=== PATIENT | male | born 1955 | race Caucasian/White ===

== ENCOUNTER 2023-01-28 18:51 | Inpatient (IN) | payer MEDICARE, MEDICAID, SELFPAY ==
--- NOTE | ~2023-01-28 | XR_ITS ---
EXAMINATION: XR CHEST CLINICAL INFORMATION: Shortness of breath COMPARISON: None available. TECHNIQUE: Frontal view of the chest was obtained. FINDINGS: Right lower lobe opacities consistent with infiltrate. Possible second focus in left midlung. No effusion. The cardiac silhouette is within normal limits. The hilar regions are mildly prominent. May be reactive. XR/XR chest 1V IMPRESSION: Right lower lobe infiltrate and possible second focus infrahilar left lower lobe. Prominent hilar structures may be reactive. Follow-up would be recommended
--- NOTE | 2023-01-28 19:21 | ED.SOB ---
HPI - SOB/Dyspnea General Stated Complaint: dyspnea Related Data Allergies Allergy/AdvReac Type Severity Reaction Status Date / Time No Known Allergies Allergy Verified 01/28/23 19:26 Course Course Course Narrative: This is an RME: Additional HPI, ROS, PE not included below will be deferred to primary provider. Patient is a 59-year-old male presents emergency department for evaluation of left lower extremity pain. Patient reports an injury to the left lower extremity 1 week ago, sustained a fall, striking left lateral leg, pain is increasingly worsening without any improvement. He is currently prescribed oxycodone for chronic back pain, which has on relieved the pain to the leg. He reports no swelling, erythema, warmth, wounds. Denies chest pain, shortness of breath, difficulty breathing. Denies history of DVT/PE, denies use of anticoagulants. Plan: XR tib fib
[2023-01-28 19:24] VITALS: BP 108/78; BP 161/92; PULSE 104; PULSE 112; RESP 22; TEMP 38.4; O2SAT 97; BMI 17.2
[2023-01-28 19:56] LABS: MANUAL DIFF FLAG NO
[2023-01-28 20:00] LABS: Basophils Percent Auto 0.3 % (0-2); Hematocrit 38.1 % (42.0-52.0); Hemoglobin 12.4 g/dl (14.0-18.0); Imm Gran Abs Auto 0.06 X10*3/uL (0.00-0.03); Imm Gran Pct Auto 0.4 % (0.0-0.4); Lymphocytes Absolute Auto 0.7 X10*3/uL (1.2-4.9); Lymphocytes Percent Auto 4.4 % (20-40); Mean Corpuscular HGB Conc 32.5 g/dl (31.0-36.0); Mean Corpuscular Hemoglobin 29.3 pg (27.0-33.0); Mean Corpuscular Volume 90.1 fL (80.0-98.0); Mean Platelet Volume 9.9 fL (9.4-12.4); Monocytes Absolute Auto 1.5 X10*3/uL (0.1-1.2); Monocytes Percent Auto 9.8 % (2-11); Neutrophils Absolute Auto 12.7 x10*3/uL (2.0-8.3); Neutrophils Percent Auto 85.1 % (45-73); Platelet Count 292 X10*3/uL (160-400); Red Blood Count 4.23 X10*6/uL (4.60-5.80); Red Cell Distribution Width 13.6 % (11.0-16.0)
[2023-01-28 20:07] VITALS: PULSE 112; RESP 20; O2SAT 93
[2023-01-28] MEDS: Acetaminophen 325 MG TABLET 650 MG PO (20:09)
[2023-01-28 20:21] LABS: Alanine Aminotransferase 16 U/L (0-40); Albumin Level 3.7 g/dL (3.5-5.0); Alkaline Phosphatase 112 U/L (39-117); Anion Gap 12 (12-20); Aspartate Amino Transferase 15 U/L (5-37); Bilirubin Total 0.6 mg/dL (0.0-1.0); Blood Urea Nitrogen 11 mg/dL (9-16); Calcium 9.5 mg/dL (8.4-10.2); Carbon Dioxide 31 mmol/L (22-29); Chloride 95 mmol/L (96-108); Creatinine Clr Calc Pharmacy 75.5; Estimated Glomerular Filt Rate > 60; Glucose Random 118 mg/dL (60-115); INTERNATIONAL NORM RATIO 1.3 (0.9-1.1); Potassium 4.3 mmol/L (3.3-5.1); Prothrombin Time 14.5 SEC (10.0-13.1); Sodium 134 mmol/L (135-145); Total Protein 7.1 g/dL (6.5-8.0)
[2023-01-28 20:28] LABS: Troponin-I High Sensitivity 3.7 ng/L (<3.5-35.0)
--- NOTE | 2023-01-28 20:28 | ED_ITS ---
HPI - SOB/Dyspnea General Chief Complaint: Dyspnea Stated Complaint: dyspnea Time Seen by Provider: 01/28/23 19:44 Source: patient and EMS Mode of arrival: EMS Limitations: no limitations History of Present Illness HPI Narrative: Patient is 67 years old with history of COPD hypertension lives in [facility] for last 3 months comes as for last 2 days patient is feeling more short of breath coughing more and even walking few yard feel short of breath . today he had more shortness of breath and was tired and weak nurse saw him and checked her vitals and transferred him to the hospital for increased shortness of breath patient was tachycardic febrile to touch saturating 91-92% at room air blood pressure was 161/80s. On arrival patient noticed to be febrile temperature of 101.2 degrees tachycardia with heart rate of 104 respiratory rate 22 Related Data Home Medications Medication Instructions Recorded Confirmed albuterol sulfate 90 mcg/actuation 1 - 2 puff inhalation Q4H PRN 01/28/23 01/28/23 aerosol inhaler Wheezing fluticasone furoate 100 1 ea inhalation DAILY 01/28/23 01/28/23 mcg-vilanterol 25 mcg/dose inhalation powder (Breo Ellipta) lisinopril 2.5 mg tablet 5 mg PO DAILY 01/28/23 01/28/23 Allergies Allergy/AdvReac Type Severity Reaction Status Date / Time No Known Allergies Allergy Verified 01/28/23 19:26 [facility] Social History Social History Alcohol intake: former Patient Tobacco Use Status: Current everyday Tobacco user Smoked in Last 30 Days: Yes Use of substances other than those prescribed or required for medical reasons: No Advance Directives: No Advance Directives Information Provided: No Nutrition Risks: No Nutritional Risk Physical Exam Vital Signs: Vital Signs: Last Vital Signs Temp 98.6 F 01/28/23 21:47 Pulse 108 H 01/28/23 21:47 Resp 18 01/28/23 21:47 BP 101/74 01/28/23 21:47 Pulse Ox 96 01/28/23 21:47 O2 Del Method Nasal Cannula 01/28/23 21:47 O2 Flow Rate 2 01/28/23 21:47 Oxygen Flow Rate 2 01/28/23 19:24 BMI result Body Mass Index 17.2 Appearance: Alert. Oriented X3. Mild respiratory distress thin emaciated. Eyes: No pallor or icterus ENT: Pharynx normal. Oral Mucosa moist Neck: Normal inspection. Neck supple. CVS: Normal heart rate and rhythm. Pulses normal. Respiratory: No respiratory distress. Equal air entry bilateral, decreased air entry bilaterally with prolonged expiration occasional crackles Abdomen: Soft and nontender. Bowel sounds are present, no mass palpable, no CVA tenderness Skin: Skin warm and dry. Normal skin color. Normal skin turgor. Extremities: No lower extremity edema. No calf tenderness Neuro: Oriented X 3. No motor deficit. Medications Administered Generic Name Dose Route Start Last Admin Trade Name Freq PRN Reason Stop Dose Admin Enoxaparin Sodium 40 mg 01/28/23 21:00 01/28/23 20:46 Enoxaparin Sodium 40 Mg/0.4 Ml Syringe SUBCUT 40 mg Q24H ALONSO Administration Ceftriaxone Sodium 1 gm/ 50 mls @ 100 mls/hr 01/28/23 20:30 01/28/23 20:45 Sodium Chloride IV 100 mls/hr Q24H ALONSO Administration Azithromycin 500 mg/ Sodium 250 mls @ 125 mls/hr 01/28/23 21:00 01/28/23 21:38 Chloride IV 125 mls/hr Q24H ALONSO Administration Discontinued Medications Generic Name Dose Route Start Last Admin Trade Name Freq PRN Reason Stop Dose Admin Acetaminophen 650 mg 01/28/23 19:52 01/28/23 20:09 Acetaminophen 325 Mg Tablet PO 01/28/23 19:53 650 mg ONCE ONE Administration Albuterol Sulfate 2.5 mg/ 0 mg 01/28/23 19:52 01/28/23 20:05 Albuterol/Ipratropium 3 ml INHALE 01/28/23 19:53 2.5 each ONCE ONE Administration Sodium Chloride 1,000 mls @ 999 mls/hr 01/28/23 20:21 01/28/23 20:44 Ns IV 01/28/23 21:21 999 mls/hr .Q1H1M ONE Administration Medical Decision Making Medical Decision Making [facility] Narrative: Patient's COPD with increased shortness of breath noticed to have infiltrate in the right lower lung along with had a fever and leukocytosis meeting criteria for sepsis but not septic shock patient vitals improved after IV hydration and antibiotics Rocephin was given Lab Data [facility] Lab Attestation statement: I reviewed the patient's lab results. 01/28/23 19:49 01/28/23 19:49 Labs: Lab Results 01/28/23 01/28/23 01/28/23 Range/Units 19:49 19:49 19:49 WBC 15.0 H (4.8-10.8) X10*3/uL RBC 4.23 L (4.60-5.80) X10*6/uL Hgb 12.4 L (14.0-18.0) g/dl Hct 38.1 L (42.0-52.0) % MCV 90.1 (80.0-98.0) fL MCH 29.3 (27.0-33.0) pg MCHC 32.5 (31.0-36.0) g/dl RDW 13.6 (11.0-16.0) % Plt Count 292 (160-400) X10*3/uL MPV 9.9 (9.4-12.4) fL Immature Gran % (Auto) 0.4 (0.0-0.4) % Neut % (Auto) 85.1 H (45-73) % Lymph % (Auto) 4.4 L (20-40) % [place] % (Auto) 9.8 (2-11) % Eos % (Auto) 0.0 (0-4) % Baso % (Auto) 0.3 (0-2) % Lymph # (Auto) 0.7 L (1.2-4.9) X10*3/uL [place] # (Auto) 1.5 H (0.1-1.2) X10*3/uL Eos # (Auto) 0.0 (0.0-0.4) X10*3/uL Baso # (Auto) 0.0 (0.0-0.2) X10*3/uL Abs Immat Gran (auto) 0.06 H (0.00-0.03) X10*3/uL Absolute Neuts (auto) 12.7 H (2.0-8.3) x10*3/uL Absolute Nucleated RBC 0.000 (0.0-0.012) X10*3/uL Nucleated RBC % (auto) 0.0 (0.0-0.2) /100WBC PT (10.0-13.1) SEC INR (0.9-1.1) Sodium 134 L (135-145) mmol/L Potassium 4.3 (3.3-5.1) mmol/L Chloride 95 L (96-108) mmol/L Carbon Dioxide 31 H (22-29) mmol/L Anion Gap 12 (12-20) BUN 11 (9-16) mg/dL Creatinine 0.72 (0.5-1.4) mg/dL Estim Creat Clear Calc 75.5 Estimated GFR > 60 Random Glucose 118 H (60-115) mg/dL Lactic Acid 1.0 (0.5-2.0) mmol/L Calcium 9.5 (8.4-10.2) mg/dL Total Bilirubin 0.6 (0.0-1.0) mg/dL AST 15 (5-37) U/L ALT 16 (0-40) U/L Alkaline Phosphatase 112 (39-117) U/L Troponin I High Sens (<3.5-35.0) ng/L Total Protein 7.1 (6.5-8.0) g/dL Albumin 3.7 (3.5-5.0) g/dL 01/28/23 01/28/23 Range/Units 19:49 19:49 WBC (4.8-10.8) X10*3/uL RBC (4.60-5.80) X10*6/uL Hgb (14.0-18.0) g/dl Hct (42.0-52.0) % MCV (80.0-98.0) fL MCH (27.0-33.0) pg MCHC (31.0-36.0) g/dl RDW (11.0-16.0) % Plt Count (160-400) X10*3/uL MPV (9.4-12.4) fL Immature Gran % (Auto) (0.0-0.4) % Neut % (Auto) (45-73) % Lymph % (Auto) (20-40) % [place] % (Auto) (2-11) % Eos % (Auto) (0-4) % Baso % (Auto) (0-2) % Lymph # (Auto) (1.2-4.9) X10*3/uL [place] # (Auto) (0.1-1.2) X10*3/uL Eos # (Auto) (0.0-0.4) X10*3/uL Baso # (Auto) (0.0-0.2) X10*3/uL Abs Immat Gran (auto) (0.00-0.03) X10*3/uL Absolute Neuts (auto) (2.0-8.3) x10*3/uL Absolute Nucleated RBC (0.0-0.012) X10*3/uL Nucleated RBC % (auto) (0.0-0.2) /100WBC PT 14.5 H (10.0-13.1) SEC INR 1.3 H (0.9-1.1) Sodium (135-145) mmol/L Potassium (3.3-5.1) mmol/L Chloride (96-108) mmol/L Carbon Dioxide (22-29) mmol/L Anion Gap (12-20) BUN (9-16) mg/dL Creatinine (0.5-1.4) mg/dL Estim Creat Clear Calc Estimated GFR Random Glucose (60-115) mg/dL Lactic Acid (0.5-2.0) mmol/L Calcium (8.4-10.2) mg/dL Total Bilirubin (0.0-1.0) mg/dL AST (5-37) U/L ALT (0-40) U/L Alkaline Phosphatase (39-117) U/L Troponin I High Sens 3.7 (<3.5-35.0) ng/L Total Protein (6.5-8.0) g/dL Albumin (3.5-5.0) g/dL Discharge Plan Discharge Clinical Impression: COPD (chronic obstructive pulmonary disease), Community acquired pneumonia Patient Disposition: Admitted As Inpatient
[2023-01-28] MEDS: 0.9 % Sodium Chloride 1,000 ML 999 ML IV (20:44)
[2023-01-28] MEDS: cefTRIAXone sodium 1 GM in 0.9 % Sodium Chloride 50 ML IV (20:45)
[2023-01-28] MEDS: Enoxaparin Sodium 40 MG/0.4 ML SYRINGE SUBCUT (20:46)
--- NOTE | 2023-01-28 20:49 | P.HPHOSP_ITS ---
History of Present Illness Date of Service: 01/28/23 Attending physician on admission: Rene Brady Chief Complaint: SOB, fever Pt is a 67-year-old male with a PMH significant for?COPD and HTN who presents to the ED with?SOB, cough, and tachycardia. Pt has been a resident of [facility] for the past three months. Since the residents' rooms do not have AC, pt was standing in the hallway in front of a fan when the staff nurse told him he looked like he was ill. She took his vitals and noted him to be hypoxic, tachycardic, and hypertensive. She then called EMS to bring him to the hospital for further evaluation. Pt states because of his COPD he has good and bad breathing days, and Sunday through Sunday were exceptional breathing days. Today, however, pt had increased SOB with minimal exertion and cough productive of mostly clear sputum. [place] tired, weak, fatigued. Pt is a current smoker of half a pack, but is not on home O2. Pt theresa fever, chills, nausea, vomiting, diarrhea, abdominal pain. No chest pain/pressure, palpitations. Denies wheezing. No peripheral edema. According to EMS report, they witnessed patient taking 10 steps and becoming short of breath. Patient was satting at 92-91% on RA. In the ED patient had a fever of 101.2, tachycardia up to 112, tachypnea up to 22, and satting 97% O2 on 2 L NC. Labs were significant for leukocytosis of 15.0, H&H of 12.4/38.1. Lactic acid WNL at 1.0. Electrolytes unremarkable. Renal function WNL. CXR showed right lower lobe infiltrate and possible 2nd focus of infrahilar left lower lobe, with prominent hilar structures may be reactive. Follow-up suggested. Pt was treated with DuoNebs, acetaminophen, IVF, and ceftriaxone. Pt will be admitted to the hospital for treatment further evaluation of sepsis in the setting of community-acquired pneumonia. Review of Systems Review of Systems: Increased SOB Productive cough Fatigue Tachycardia Hypertension Patient denies fever, chills, nausea, vomiting, abdominal pain, diarrhea No chest pain/pressure, palpitations Denies lower leg edema Yes all other systems are reviewed and are negative Meds Allergies Allergy/AdvReac Type Severity Reaction Status Date / Time No Known Allergies Allergy Verified 01/28/23 19:26 Active Medications: Current Medications Acetaminophen (Acetaminophen 325 Mg Tablet) 650 mg PO Q6H PRN PRN Reason: Pain, Mild (Pain Scale 1-3) Acetaminophen (Acetaminophen Supp 650 Mg Supp.Rect) 650 mg CA Q6H PRN PRN Reason: Pain, Mild (Pain Scale 1-3) Albuterol/Ipratropium (Albuterol/Iprat 2.5/0.5mg 3 Ml Ampul.Neb) 3 ml INHALE Q4H PRN PRN Reason: Wheezing Enoxaparin Sodium (Enoxaparin Sodium 40 Mg/0.4 Ml Syringe) 40 mg SUBCUT Q24H [facility] Last Admin: 01/28/23 20:46 Dose: 40 mg Ceftriaxone Sodium 1 gm/ (Sodium Chloride) 50 mls @ 100 mls/hr IV Q24H [facility] Last Admin: 01/28/23 20:45 Dose: 100 mls/hr Azithromycin 500 mg/ Sodium (Chloride) 250 mls @ 125 mls/hr IV Q24H [facility] Sodium Chloride (Ns) 1,000 mls @ 999 mls/hr IV .Q1H1M ONE Stop: 01/28/23 21:21 Last Admin: 01/28/23 20:44 Dose: 999 mls/hr Melatonin (Melatonin 3 Mg Tablet) 6 mg PO BEDTIME PRN PRN Reason: Insomnia Ondansetron HCl (Ondansetron Hcl 4 Mg/2 Ml Vial) 4 mg IVPUSH Q8H PRN PRN Reason: Nausea and Vomiting Pharmacy Consult (Consult Rx Perform Med Rec) 1 each MISCELLANE ONCE PRN PRN Reason: Consult order Sodium Chloride (0.9 % Sodium Chloride Flush 3 Ml Syringe) 3 ml IVFLUSH QSHIFT [facility] Home Medications Medication Instructions Recorded Confirmed Last Taken Type albuterol sulfate 90 mcg/actuation 1 - 2 puff inhalation Q4H PRN 01/28/23 Unknown History aerosol inhaler Wheezing fluticasone furoate 100 1 ea inhalation DAILY 01/28/23 01/28/23 Unknown History mcg-vilanterol 25 mcg/dose inhalation powder (Breo Ellipta) lisinopril 2.5 mg tablet 5 mg PO DAILY 01/28/23 01/28/23 Unknown History Physical Exam Vital Signs and Narrative: Vital Signs: Last Vital Signs Temp 101.2 F H 01/28/23 19:24 Pulse 112 H 01/28/23 20:07 Resp 20 01/28/23 20:07 BP 108/78 01/28/23 19:24 Pulse Ox 97 01/28/23 19:24 O2 Del Method Nasal Cannula 01/28/23 19:24 Oxygen Flow Rate 2 01/28/23 19:24 BMI result Body Mass Index 17.2 Constitutional: Alert, very thin, in no acute distress. Mental Status: Oriented to person, place and time. Eyes: Pupils are equal, round, and reactive to light. Ear, Nose, and Throat: Oropharynx clear, mucous membranes moist. Ears and nose without deformities. Trachea midline. Respiratory: Clear to auscultation bilaterally. No wheezing, rales, or rhonchi. Diminished breath sounds throughout. Cardiovascular: S1, S2, tachycardic. No murmurs, rubs, or gallops. Gastrointestinal: Abdomen soft, non-tender, non-distended. Normal bowel sounds. Neurologic: Cranial nerves II-XII are grossly intact bilaterally. No focal neurological deficits. Moves all extremities spontaneously. Skin: No rashes or lesions noted. Musculoskeletal: No cyanosis or clubbing. Extremities: No edema. Psychiatric: Normal mood and affect. Results Labs 01/28/23 19:49 01/28/23 19:49 Labs: Laboratory Results - last 24 hr 01/28/23 01/28/23 01/28/23 19:49 19:49 19:49 MCV 90.1 MCH 29.3 MCHC 32.5 RDW 13.6 Plt Count 292 MPV 9.9 Immature Gran % (Auto) 0.4 Neut % (Auto) 85.1 H Lymph % (Auto) 4.4 L [place] % (Auto) 9.8 Eos % (Auto) 0.0 Baso % (Auto) 0.3 Lymph # (Auto) 0.7 L [place] # (Auto) 1.5 H Eos # (Auto) 0.0 Baso # (Auto) 0.0 Abs Immat Gran (auto) 0.06 H Absolute Neuts (auto) 12.7 H Absolute Nucleated RBC 0.000 Nucleated RBC % (auto) 0.0 PT INR Anion Gap 12 Estim Creat Clear Calc 75.5 Estimated GFR > 60 Random Glucose 118 H Lactic Acid 1.0 Calcium 9.5 Total Bilirubin 0.6 AST 15 ALT 16 Alkaline Phosphatase 112 Troponin I High Sens Total Protein 7.1 Albumin 3.7 01/28/23 01/28/23 19:49 19:49 MCV MCH MCHC RDW Plt Count MPV Immature Gran % (Auto) Neut % (Auto) Lymph % (Auto) [place] % (Auto) Eos % (Auto) Baso % (Auto) Lymph # (Auto) [place] # (Auto) Eos # (Auto) Baso # (Auto) Abs Immat Gran (auto) Absolute Neuts (auto) Absolute Nucleated RBC Nucleated RBC % (auto) PT 14.5 H INR 1.3 H Anion Gap Estim Creat Clear Calc Estimated GFR Random Glucose Lactic Acid Calcium Total Bilirubin AST ALT Alkaline Phosphatase Troponin I High Sens 3.7 Total Protein Albumin Imaging Radiologist's Impressions: Impressions Chest X-Ray 01/28/23 20:04 IMPRESSION: Right lower lobe infiltrate and possible second focus infrahilar left lower lobe. Prominent hilar structures may be reactive. Follow-up would be recommended Assessment and Plan (1) COPD (chronic obstructive pulmonary disease): Status: Acute (2) HTN (hypertension): Status: Acute (3) Community acquired pneumonia: Status: Acute (4) Sepsis: Status: Acute Plan Pt is a 67-year-old male with a PMH significant for?COPD and HTN who presents to the ED with?SOB, cough, and tachycardia. Pt has been a resident of [facility] for the past three months. Since the residents' rooms do not have AC, pt was standing in the hallway in front of a fan when the staff nurse told him he looked like he was ill. She took his vitals and noted him to be hypoxic, tachycardic, and hypertensive. Pt will be admitted to the hospital for treatment further evaluation of sepsis in the setting of community-acquired pneumonia. Sepsis in the setting of community-acquired pneumonia Patient with increased fatigue, SOB, productive cough, CXR positive for right lower lobe infiltrate with possible 2nd focus in infrahilar left lower lobe Patient meets sepsis criteria: WBC, tachycardia, tachypnea, febrile Lactic acid WNL at 1.0 Patient received IVF in the ED Patient will be started on IV antibiotics: Ceftriaxone and azithromycin, start ed 01/28/2023 Titrate supplemental O2 >92, wean as tolerated. Pt not on home O2 Patient currently not wheezy or rhonchorous, continue home inhalers Follow blood cultures Follow CBC COPD Does not appear to be in acute exacerbation Continue home inhalers HTN Continue home meds Full Code Attending:? DVT Prophylaxis: Lovenox Pt will require a hospitalization of at least two nights for treatment of?sepsis in the setting of community-acquired pneumonia with IV antibiotics. Time Spent With Patient Time: Total time managing care of this patient today ____ minutes. Quality Stroke Does the patient have a stroke diagnosis?: No VTE Prior VTE?: No VTE Risk Level:: Medical - moderate - high VTE Device Contraindication: Treatment Not Indicated VTE Drug Contraindication: N/A - Med Ordered
--- NOTE | 2023-01-28 21:24 | PHA.MEDREC ---
Pharmacy Consult ? Medication Reconciliation Pharmacy has reviewed the medication reconciliation completed by Cinda. Karla Bah, PharmD
[2023-01-28] MEDS: Azithromycin 500 MG in 0.9 % Sodium Chloride 250 ML 125 MG IV (21:38)
[2023-01-28 21:39] VITALS: RESP 48
[2023-01-28 21:47] VITALS: BP 101/74; PULSE 108; RESP 18; TEMP 37; O2SAT 96
[2023-01-28 23:43] LABS: Influenza A PCR NEGATIVE (Negative); Influenza B PCR NEGATIVE (Negative); Resp Syncy Virus RNA Qual PCR NEGATIVE (Negative); SARS COV2 PCR INHOUSE NEGATIVE (Negative)
--- NOTE | 2023-01-29 00:21 | MHC.EDTECH ---
Belongings list done, Patient has 595.00 dollars in [place], Patient refused safe, Letty RN at bedside to count money with this tech. Placed in jacket per the request of patient,jacket on bed with pt. Vitals taken awaiting a bed at this time.
[2023-01-29 00:25] VITALS: BP 124/80; PULSE 102; RESP 18; TEMP 36.9; O2SAT 96
[2023-01-29] MEDS: 0.9 % Sodium Chloride Flush 3 ML SYRINGE IVFLUSH ×4 (00:49→23:26)
[2023-01-29 06:05] LABS: MANUAL DIFF FLAG NO
[2023-01-29 06:10] LABS: Basophils Percent Auto 0.2 % (0-2); Eosinophils Percent Auto 0.1 % (0-4); Hematocrit 36.2 % (42.0-52.0); Hemoglobin 11.6 g/dl (14.0-18.0); Imm Gran Abs Auto 0.06 X10*3/uL (0.00-0.03); Imm Gran Pct Auto 0.4 % (0.0-0.4); Lymphocytes Absolute Auto 0.7 X10*3/uL (1.2-4.9); Lymphocytes Percent Auto 5.1 % (20-40); Mean Corpuscular Hemoglobin 28.5 pg (27.0-33.0); Mean Corpuscular Volume 88.9 fL (80.0-98.0); Mean Platelet Volume 9.6 fL (9.4-12.4); Monocytes Absolute Auto 1.4 X10*3/uL (0.1-1.2); Monocytes Percent Auto 9.6 % (2-11); Neutrophils Absolute Auto 12.3 x10*3/uL (2.0-8.3); Neutrophils Percent Auto 84.6 % (45-73); Platelet Count 254 X10*3/uL (160-400); Red Blood Count 4.07 X10*6/uL (4.60-5.80); Red Cell Distribution Width 13.6 % (11.0-16.0); White Blood Count 14.6 X10*3/uL (4.8-10.8)
[2023-01-29 06:49] LABS: Anion Gap 11 (12-20); Blood Urea Nitrogen 8 mg/dL (9-16); Calcium 8.8 mg/dL (8.4-10.2); Carbon Dioxide 26 mmol/L (22-29); Chloride 102 mmol/L (96-108); Creatinine Clr Calc Pharmacy 97.1; Estimated Glomerular Filt Rate > 60; Glucose Random 112 mg/dL (60-115); Potassium 4.2 mmol/L (3.3-5.1); Sodium 135 mmol/L (135-145)
--- NOTE | 2023-01-29 07:35 | PC.NURSE ---
Alert and oriented, 97% on RA, denies SOB or chest pain. Occasional congested cough. VSS. Patient aware of transfer to room 353. Denies any pain or discomfort.
--- NOTE | 2023-01-29 07:37 | PC.NURSE ---
Report given to accepting floor.
[2023-01-29] MEDS: lisinopriL 5 MG TABLET PO (07:38)
--- NOTE | 2023-01-29 07:45 | PC.NURSE ---
Pharmacy to bring Cristian Teresa to receiving unit
[2023-01-29 08:00] VITALS: BP 118/79; PULSE 88; RESP 18; TEMP 36; O2SAT 94
--- NOTE | 2023-01-29 08:07 | PC.NURSE ---
Brought by transport to room 353.
--- NOTE | 2023-01-29 08:40 | P.PNIM_ITS ---
Subjective Subjective Date of Service: 01/29/23 Review of Systems Follow up SOB Physical Exam Vital Signs: Vital Signs: Last Vital Signs Temp 96.8 F 01/29/23 08:00 Pulse 88 01/29/23 08:00 Resp 18 01/29/23 08:00 BP 118/79 01/29/23 08:00 Pulse Ox 94 01/29/23 08:00 O2 Del Method Room Air 01/29/23 08:00 O2 Flow Rate 2 01/29/23 00:25 Oxygen Flow Rate 2 01/28/23 19:24 BMI result Body Mass Index 17.2 Appearing in no acute distress lung sounds are clear to auscultation heart regular rate rhythm, clear S1, S2 positive bowel sounds, abdomen is soft, nontender neuro patient is alert x3, no focal deficits Objective Data Active Medications Acetaminophen (Acetaminophen 325 Mg Tablet) 650 mg PO Q6H PRN PRN Reason: Pain, Mild (Pain Scale 1-3) Acetaminophen (Acetaminophen Supp 650 Mg Supp.Rect) 650 mg [place] Q6H PRN PRN Reason: Pain, Mild (Pain Scale 1-3) Albuterol Sulfate (Albuterol Sulfate 90 Mcg 8 Gm Inhaler) 2 puff INHALE Q4H PRN PRN Reason: Wheezing Albuterol/Ipratropium (Albuterol/Iprat 2.5/0.5mg 3 Ml Ampul.Neb) 3 ml INHALE Q4H PRN PRN Reason: Wheezing Enoxaparin Sodium (Enoxaparin Sodium 40 Mg/0.4 Ml Syringe) 40 mg SUBCUT Q24H [facility] Last Admin: 01/28/23 20:46 Dose: 40 mg Documented By: MONTESCARLETT Fluticasone/Vilanterol (Fluticasone/Vilanterol 100/25 Blst.W.Dev) 1 puff INHALE RDAILY [facility] Ceftriaxone Sodium 1 gm/ (Sodium Chloride) 50 mls @ 100 mls/hr IV Q24H [facility] Last Infusion: 01/28/23 21:15 Dose: 0 mls/hr Documented By: LLOYD Azithromycin 500 mg/ Sodium (Chloride) 250 mls @ 125 mls/hr IV Q24H [facility] Last Infusion: 01/28/23 23:40 Dose: 0 mls/hr Documented By: LLOYD Lisinopril (Lisinopril 5 Mg Tablet) 5 mg PO DAILY [facility]; Protocol Last Admin: 01/29/23 07:38 Dose: 5 mg Documented By: HENOK Melatonin (Melatonin 3 Mg Tablet) 6 mg PO BEDTIME PRN PRN Reason: Insomnia Ondansetron HCl (Ondansetron Hcl 4 Mg/2 Ml Vial) 4 mg IVPUSH Q8H PRN PRN Reason: Nausea and Vomiting Pharmacy Consult (Consult Rx Perform Med Rec) 1 each MISCELLANE ONCE PRN PRN Reason: Consult order Sodium Chloride (0.9 % Sodium Chloride Flush 3 Ml Syringe) 3 ml IVFLUSH QSHIFT [facility] Last Admin: 01/29/23 07:39 Dose: 3 ml Documented By: HENOK Labs 01/29/23 05:51 01/29/23 05:51 Labs: Laboratory Results - last 24 hr 01/28/23 01/28/23 01/28/23 19:49 19:49 19:49 MCV 90.1 MCH 29.3 MCHC 32.5 RDW 13.6 Plt Count 292 MPV 9.9 Immature Gran % (Auto) 0.4 Neut % (Auto) 85.1 H Lymph % (Auto) 4.4 L Cooper % (Auto) 9.8 Eos % (Auto) 0.0 Baso % (Auto) 0.3 Lymph # (Auto) 0.7 L Cooper # (Auto) 1.5 H Eos # (Auto) 0.0 Baso # (Auto) 0.0 Abs Immat Gran (auto) 0.06 H Absolute Neuts (auto) 12.7 H Absolute Nucleated RBC 0.000 Nucleated RBC % (auto) 0.0 PT INR Anion Gap 12 Estim Creat Clear Calc 75.5 Estimated GFR > 60 Random Glucose 118 H Lactic Acid 1.0 Calcium 9.5 Total Bilirubin 0.6 AST 15 ALT 16 Alkaline Phosphatase 112 Troponin I High Sens Total Protein 7.1 Albumin 3.7 Influenza Type A (PCR) Influenza Type B (PCR) RSV RNA Qual (PCR) SARS-CoV-2 RNA (RT-PCR) 01/28/23 01/28/23 01/28/23 19:49 19:49 20:57 MCV MCH MCHC RDW Plt Count MPV Immature Gran % (Auto) Neut % (Auto) Lymph % (Auto) Cooper % (Auto) Eos % (Auto) Baso % (Auto) Lymph # (Auto) Cooper # (Auto) Eos # (Auto) Baso # (Auto) Abs Immat Gran (auto) Absolute Neuts (auto) Absolute Nucleated RBC Nucleated RBC % (auto) PT 14.5 H INR 1.3 H Anion Gap Estim Creat Clear Calc Estimated GFR Random Glucose Lactic Acid Calcium Total Bilirubin AST ALT Alkaline Phosphatase Troponin I High Sens 3.7 Total Protein Albumin Influenza Type A (PCR) NEGATIVE Influenza Type B (PCR) NEGATIVE RSV RNA Qual (PCR) NEGATIVE SARS-CoV-2 RNA (RT-PCR) NEGATIVE 01/29/23 01/29/23 05:51 05:51 MCV 88.9 MCH 28.5 MCHC 32.0 RDW 13.6 Plt Count 254 MPV 9.6 Immature Gran % (Auto) 0.4 Neut % (Auto) 84.6 H Lymph % (Auto) 5.1 L Cooper % (Auto) 9.6 Eos % (Auto) 0.1 Baso % (Auto) 0.2 Lymph # (Auto) 0.7 L Cooper # (Auto) 1.4 H Eos # (Auto) 0.0 Baso # (Auto) 0.0 Abs Immat Gran (auto) 0.06 H Absolute Neuts (auto) 12.3 H Absolute Nucleated RBC 0.000 Nucleated RBC % (auto) 0.0 PT INR Anion Gap 11 L Estim Creat Clear Calc 97.1 Estimated GFR > 60 Random Glucose 112 Lactic Acid Calcium 8.8 D Total Bilirubin AST ALT Alkaline Phosphatase Troponin I High Sens Total Protein Albumin Influenza Type A (PCR) Influenza Type B (PCR) RSV RNA Qual (PCR) SARS-CoV-2 RNA (RT-PCR) Assessment and Plan (1) Sepsis: Status: Acute Plan 67-year-old male with a PMH significant for?COPD and HTN who presents to the ED with?SOB, cough, and tachycardia. Pt has been a resident of [facility] for the past three months. Since the residents' rooms do not have AC, pt was standing in the hallway in front of a fan when the staff nurse told him he looked like he was ill. She took his vitals and noted him to be hypoxic, tachycardic, and hypertensive. Pt will be admitted to the hospital for treatment further evaluation of sepsis in the setting of community-acquired pneumonia. Sepsis in the setting of community-acquired pneumonia CXR positive for right lower lobe infiltrate with possible 2nd focus in infrahilar left lower lobe Patient meets sepsis criteria:? WBC, tachycardia, tachypnea, febrile Lactic acid WNL at 1.0 Ceftriaxone and azithromycin Titrate supplemental O2 >92, wean as tolerated. Pt not on home O2 Follow blood cultures COPD Does not appear to be in acute exacerbation Continue home inhalers HTN Continue home meds Moderate protein calorie malnutrition. BMI 17.2 Add protein to diet Full Code Attending:?Dr. Benavides DVT Prophylaxis: Lovenox continued hospital stay for treatment of?sepsis in the setting of community- acquired pneumonia with IV antibiotics. Time Spent With Patient Time: Total time managing care of this patient today ____ minutes. Quality Stroke Does the patient have a stroke diagnosis?: No VTE Prior VTE?: No VTE Risk Level:: Medical - moderate - high VTE Device Contraindication: Treatment Not Indicated VTE Drug Contraindication: N/A - Med Ordered
[2023-01-29] MEDS: Fluticasone/Vilanterol 100/25 BLST.W.DEV 1 PUFF INHALE (08:51)
[2023-01-29 09:07] LABS: MRSA Nasal PCR NEGATIVE (Negative); SA Nasal PCR POSITIVE (Negative)
[2023-01-29 11:05] VITALS: PULSE 88; RESP 18
--- NOTE | 2023-01-29 11:11 | MHC.CM.PN ---
PT REPORTS HE LIVES AT [facility] WHERE HE IS INDEPENDENT WT CARE AND USES A CANE PRN HE REPORTS HE DOES NOT HAVE A HCP BECAUSE HE DOES NOT HAVE ANYONE TO NAME, HE SAYS HIS MOTHER AND SISTER ARE IN [place] AND THEY ARE THE ONLY FAMILY HE HAS LEFT. HE DECLINES TO COMPLETE A HCP TODAY. HE ALSO DENIES HAVING HIS OWN PCP, BUT SAYS A PRODUCTION TEAM MANAGER COMES INTO THE [facility] AND PROVIDES ANY CARE HE NEEDS IMM DELIVERED CURRENT DCP IS RETURN TO [facility] PT WILL [place] NEED THE SHUTTLE ALTHOUGH [facility] DOES TRANSPORT AT TIMES
[2023-01-29 14:11] VITALS: BMI 17.2
[2023-01-29 15:18] VITALS: BP 141/86; PULSE 99; RESP 18; TEMP 37.3; O2SAT 93
[2023-01-29 19:35] VITALS: BP 146/84; PULSE 100; RESP 16; TEMP 37; O2SAT 96
[2023-01-29] MEDS: cefTRIAXone sodium 1 GM in 0.9 % Sodium Chloride 50 ML IV (20:45)
[2023-01-29] MEDS: Enoxaparin Sodium 40 MG/0.4 ML SYRINGE SUBCUT (20:48)
[2023-01-29] MEDS: Azithromycin 500 MG in 0.9 % Sodium Chloride 250 ML 125 MG IV (21:28)
[2023-01-30 03:23] VITALS: BP 120/80; PULSE 84; RESP 18; TEMP 36.1; O2SAT 96
[2023-01-30 04:00] VITALS: RESP 18
[2023-01-30 07:31] VITALS: BP 125/83; PULSE 92; RESP 18; TEMP 36.6; O2SAT 95
--- NOTE | 2023-01-30 07:40 | P.DS_ITS ---
DS: Providers Provider Date of Service: 01/30/23 Date of admission: 01/28/23 21:00 Primary care physician: Unknown Physician DS: Diagnosis Discharge Diagnosis (1) Sepsis: Status: Acute DS: Summary Hospital Course Hospital Course: HP as per admitting provider Pt is a 67-year-old male with a PMH significant for?COPD and HTN who presents to the ED with?SOB, cough, and tachycardia. Pt has been a resident of [facility] for the pastpast three months. Since the residents' rooms do not have AC, pt was standing in the hallway in front of a fan when the staff nurse told him he looked like he was ill. She took his vitals and noted him to be hypoxic, tachycardic, and hypertensive. She then called EMS to bring him to the hospital for further evaluation. Pt states because of his COPD he has good and bad breathing days, and Sunday through Sunday were exceptional breathing days. Today, however, pt had increased SOB with minimal exertion and cough productive of mostly clear sputum. [place] tired, weak, fatigued. Pt is a current smoker of half a pack, but is not on home O2. Pt theresa fever, chills, nausea, vomiting, diarrhea, abdominal pain.? No chest pain/pressure, palpitations.? Denies wheezing.? No peripheral edema.? According to EMS report, they witnessed patient taking 10 steps and becoming short of breath.? Patient was satting at 92-91% on RA. In the ED patient had a fever of 101.2, tachycardia up to 112, tachypnea up to 22, and satting 97% O2 on 2 L NC. Labs were significant for leukocytosis of 15.0, H&H of 12.4/38.1.? Lactic acid WNL at 1.0.? Electrolytes unremarkable.? Renal function WNL. CXR showed right lower lobe infiltrate and possible 2nd focus of infrahilar left lower lobe, with prominent hilar structures may be reactive.? Follow-up suggested. Pt was treated with DuoNebs, acetaminophen, IVF, and ceftriaxone. Pt will be admitted to the hospital for treatment further evaluation of sepsis in the setting of community- acquired pneumonia. Sepsis in the setting of community-acquired pneumonia. CXR positive for right lower lobe infiltrate with possible 2nd focus in infrahilar left lower lobe. Sepsis resolved. Treated with Rocephin and azithromycin. Remained on room air. Negative blood cultures. Home to complete course with Ceftin and azithromycin. COPD No acute exacerbation Continue home inhalers HTN Continue home meds Moderate protein calorie malnutrition.? BMI 17.2 Added protein to diet Time Spent with Patient Time attestation: Total time managing care of this patient today ____ minutes. Discharge coordination time: Greater than 30 minutes Quality: Safe Use of Opioids Does Pt have an Active Cancer Diagnosis on the Problem List?: No Quality: Stroke Does the patient have a stroke diagnosis?: No Physical Exam Vital Signs: Vital Signs: Last Vital Signs Temp 97.8 F 01/30/23 07:31 Pulse 92 01/30/23 07:31 Resp 18 01/30/23 07:31 BP 125/83 01/30/23 07:31 Pulse Ox 95 01/30/23 07:31 O2 Del Method Room Air 01/30/23 07:31 O2 Flow Rate 2 01/29/23 00:25 Oxygen Flow Rate 2 01/28/23 19:24 BMI result Body Mass Index 17.2 Appearing in no acute distress head is normocephalic atraumatic eyes pupils are PERRLA sclera is anicteric mouth throat mucous membranes are intact and moist neck is supple no lymphadenopathy, no JVD noted lung sounds are clear to auscultation heart regular rate rhythm, clear S1, S2 positive bowel sounds, abdomen is soft, nontender neuro patient is alert x3, no focal deficits DS: Data Data Completed and Pending Labs on day of discharge: Laboratory Results - last 24 hr 01/29/23 00:39 Nasal Screen MRSA (PCR) NEGATIVE Nasal S. aureus Screen POSITIVE A Nasal MRSA/S.aureus Interp SEE NOTE Preliminary micro results at discharge 01/28/23 Unknown Blood Culture - Preliminary Blood - Venous No growth after 24 hours. 01/28/23 19:49 Blood Culture - Preliminary Blood - Venous No growth after 24 hours. Discharge Plan Discharge Anticipated Discharge Date/Time: 01/30/23 07:36 Patient Disposition: Home, Self-Care Discharge Diagnosis: CAP Discharge Medications: New cefuroxime axetil 500 mg tablet 500 mg PO BID Qty: 8 0RF azithromycin 500 mg tablet 500 mg PO DAILY 5 Days Qty: 4 0RF Continued albuterol sulfate 90 mcg/actuation HFA aerosol inhaler 1 - 2 puff inhalation Q4H PRN (Reason: Wheezing) lisinopril 2.5 mg tablet 5 mg PO DAILY fluticasone furoate-vilanterol [Breo Ellipta] 100-25 mcg/dose blister with device 1 ea inhalation DAILY Discharge Orders: Discharge Order (Routine); Ordered 01/30/23 Ordered By: Carrol Soria Diet: Advance to usual diet Activity on Discharge: As tolerated Stand Alone Forms: Patient Portal Discharge page Care Plan Goals: complete resolution of symptoms Health Concerns: CAP Plan of Treatment: Follow up with primary care provider as needed take all medications as prescribed Assessment: See discharge summary
[2023-01-30] MEDS: lisinopriL 5 MG TABLET PO (07:46)
[2023-01-30] MEDS: 0.9 % Sodium Chloride Flush 3 ML SYRINGE IVFLUSH (07:47)
[2023-01-30] MEDS: Fluticasone/Vilanterol 100/25 BLST.W.DEV 1 PUFF INHALE (09:53)
== END 2023-01-30 10:31 | disposition home or self-care (01) | DRG 871 ==
LOC: HO.ED 20:56 → HO.EDOVER 21:00 → HO.S3 23:32 → HO.EDOVER 01-29 00:10 → HO.S3 01-29 07:20
PROVIDERS: Admitting Provider Student in an Organized Health Care Education/Training Program; Emergency Provider Internal Medicine; Visit Provider Nurse Practitioner Acute Care
DX: A41.9 Sepsis, unspecified organism (principal); J18.9 Pneumonia, unspecified organism; J44.0 Chronic obstructive pulmonary disease with (acute) lower respiratory infection; E44.0 Moderate protein-calorie malnutrition; Z68.1 Body mass index [BMI] 19.9 or less, adult; I10 Essential (primary) hypertension; Z20.822 Contact with and (suspected) exposure to COVID-19; R09.02 Hypoxemia; F17.210 Nicotine dependence, cigarettes, uncomplicated; Z71.6 Tobacco abuse counseling; Z79.51 Long term (current) use of inhaled steroids; Z79.899 Other long term (current) drug therapy
CPT/HCPCS: 0241U; 36415; 71045; 80048; 80053; 83605; 84484; 85025; 85610; 87040; 87640; 87641; 94640; 99285; J0456; J0696; J1650

== ENCOUNTER 2023-04-03 14:20 | Emergency (ER) | payer MEDICARE, MEDICAID, SELFPAY ==
--- NOTE | ~2023-04-03 | XR_ITS ---
EXAMINATION: XR CHEST CLINICAL INFORMATION: Shortness of breath. COMPARISON: 01/28/2023 chest radiograph. TECHNIQUE: Frontal view of the chest was obtained. FINDINGS: There is generalized hyperinflation. The lungs are clear. The heart and mediastinal structures are unremarkable. XR/XR chest 1V IMPRESSION: Generalized hyperinflation is nonspecific, but can be seen with COPD. No acute cardiopulmonary process.
--- NOTE | 2023-04-03 14:29 | ECG_ITS ---
Test Reason : SOB Blood Pressure : / mmHG Vent. Rate : 100 BPM Atrial Rate : 100 BPM P-R Int : 122 ms QRS Dur : 134 ms QT Int : 372 ms P-R-T Axes : 084 066 059 degrees QTc Int : 479 ms Normal sinus rhythm Biatrial enlargement Right bundle branch block Abnormal ECG No previous ECGs available Referred By: Rahel Liang Electronically Signed By:ANCA SHELL
[2023-04-03 14:34] VITALS: BP 133/93; PULSE 98; RESP 16; TEMP 36.4; O2SAT 97; BMI 16.3
--- NOTE | 2023-04-03 14:35 | ED.SOB ---
HPI - SOB/Dyspnea General Chief Complaint: General Medical Stated Complaint: SOB 98% PER EMS Time Seen by Provider: 04/03/23 14:28 Source: patient Mode of arrival: EMS History of Present Illness HPI Narrative: 67-year-old male with history of chronic lung disease presents via EMS for being in the lunch room and developing a persistent cough that is subsequently made him short of breath, he denies any fever chills dizziness or headache and denies any GI or symptoms. Related Data Home Medications Medication Instructions Recorded Confirmed albuterol sulfate 90 mcg/actuation 1 - 2 puff inhalation Q4H PRN 01/28/23 01/28/23 aerosol inhaler Wheezing fluticasone furoate 100 1 ea inhalation DAILY 01/28/23 01/28/23 mcg-vilanterol 25 mcg/dose inhalation powder (Breo Ellipta) lisinopril 2.5 mg tablet 5 mg PO DAILY 01/28/23 01/28/23 Previous Rx's Medication Instructions Recorded azithromycin 500 mg tablet 500 mg PO DAILY 5 days #4 tabs 01/30/23 cefuroxime axetil 500 mg tablet 500 mg PO BID #8 tabs 01/30/23 Allergies Allergy/AdvReac Type Severity Reaction Status Date / Time No Known Allergies Allergy Verified 01/28/23 19:26 Review of Systems Review of Systems: Pertinent positives and negatives as stated in HPI PMFSH Past Medical History Source: nursing notes reviewed Medical History COPD (chronic obstructive pulmonary disease) HTN (hypertension) Social History Social History Household Members: Other Housing: Other Housing Other:: rest home Alcohol intake: former Patient Tobacco Use Status: Current someday Tobacco user Tobacco use type: Cigarette Cigarettes Per Day: 6 Smoked in Last 30 Days: Yes Second Hand Smoke Exposure: No Advance Directives: No Advance Directives Information Provided: No service: No Physical Exam Vital Signs: Vital Signs: Last Vital Signs Temp 97.6 F 04/03/23 14:34 Pulse 104 H 04/03/23 15:11 Resp 16 04/03/23 15:11 BP 146/97 H 04/03/23 15:11 Pulse Ox 96 04/03/23 15:11 O2 Del Method Room Air 04/03/23 14:34 BMI result Body Mass Index 16.3 VITAL SIGNS: Reviewed. GENERAL: Cachectic, chronically ill, in mild distress. HEAD: Normocephalic/atraumatic, EYES: PERRLA, EOMI EARS: Ext canals without abnormality NOSE: Nares patent bilateral OROPHARYNX: no oral lesions noted, posterior pharynx clear NECK: Supple, no adenopathy LUNGS: Decreased breath sounds bilaterally, no expiratory wheeze/rhonchi/rales appreciated, tachypnea is present. SpO2<96> CARDIOVASCULAR: Regular rate and rhythm without noted murmurs ABDOMEN: Soft, non-tender, non-distended with bowel sounds. MUSCULOSKELETAL: No tenderness, deformities, or effusions noted on gross inspection. EXTREMITIES: No cyanosis, clubbing or edema. SKIN: Inspection of the skin reveals no rashes NEUROLOGIC: Alert and oriented x 3. Strength and sensation to light touch were grossly intact x 4. Medications Administered Discontinued Medications Generic Name Dose Route Start Last Admin Trade Name Freq PRN Reason Stop Dose Admin Benzonatate 200 mg 04/03/23 15:21 04/03/23 15:32 Benzonatate 100 Mg Capsule PO 04/03/23 15:22 200 mg ONCE ONE Administration Albuterol Sulfate 2.5 mg/ 0 mg 04/03/23 14:46 04/03/23 15:07 Albuterol/Ipratropium 3 ml INHALE 04/03/23 14:47 5 dose ONCE ONE Administration Sodium Chloride 500 mls @ 999 mls/hr 04/03/23 15:30 04/03/23 15:27 Ns IV 04/03/23 16:00 999 mls/hr .Q31M ALONSO Administration Methylprednisolone Sodium Succinate 125 mg 04/03/23 15:16 04/03/23 15:26 Methylprednisolone Sod Succ 125 Mg/2 Ml Vial IVPUSH 04/03/23 15:17 125 mg ONCE ONE Administration Medical Decision Making Medical Decision Making MDM Narrative: 1500: 67-year-old male with history and clinical presentation, DDX: Viral illness, bronchitis, exacerbation of chronic lung disease, less likely pneumonia/ACS. INTERVENTION: DuoNeb, Steroids, Tessalon I reviewed all investigations and hematologic indices are negative for leukocytosis, patient is afebrile although there is a mild left shift, normocytic anemia is chronically stable and there is no thrombocytopenia. Coagulation studies are within normal limits. VBG does not demonstrate any respiratory acidosis or evidence of hypercapnia. Chemistry indices are negative for BOB and there is no evidence of electrolyte or liver enzyme abnormalities. The slight elevation in alkaline phosphatase is likely due to bone demineralization. Troponin is not detectable and BNP is 16. Chest x-ray does not demonstrate an infiltrate and otherwise my interpretation is in agreement with radiology's impression. EKG demonstrates normal sinus rhythm with than right bundle branch block but otherwise no acute changes and patient is asymptomatic for chest pain. I signed out to Dr. Crow - re-evaluation and if clinically appropriate can be discharged back to the facility on a short course of steroids. Differential Diagnosis Differential Diagnoses: The differential diagnosis associated with the presentation includes Please see the discussion above Admission/Observation Consideration of admission/observation: Escalation of care including admission/observation considered Please see the discussion above Lab Data MDM Lab Attestation statement: I reviewed the patient's lab results. Please see the discussion above 04/03/23 14:45 04/03/23 14:45 Labs: Lab Results 04/03/23 04/03/23 04/03/23 Range/Units 14:44 14:45 14:45 WBC 9.2 (4.8-10.8) X10*3/uL RBC 4.66 (4.60-5.80) X10*6/uL Hgb 13.4 L (14.0-18.0) g/dl Hct 41.7 L (42.0-52.0) % MCV 89.5 (80.0-98.0) fL MCH 28.8 (27.0-33.0) pg MCHC 32.1 (31.0-36.0) g/dl RDW 14.1 (11.0-16.0) % Plt Count 245 (160-400) X10*3/uL MPV 10.0 (9.4-12.4) fL Immature Gran % (Auto) 0.5 H (0.0-0.4) % Neut % (Auto) 75.9 H (45-73) % Lymph % (Auto) 10.7 L (20-40) % Mckenzie % (Auto) 11.5 H (2-11) % Eos % (Auto) 1.2 (0-4) % Baso % (Auto) 0.2 (0-2) % Lymph # (Auto) 1.0 L (1.2-4.9) X10*3/uL Mckenzie # (Auto) 1.1 (0.1-1.2) X10*3/uL Eos # (Auto) 0.1 (0.0-0.4) X10*3/uL Baso # (Auto) 0.0 (0.0-0.2) X10*3/uL Abs Immat Gran (auto) 0.05 H (0.00-0.03) X10*3/uL Absolute Neuts (auto) 7.0 (2.0-8.3) x10*3/uL Absolute Nucleated RBC 0.000 (0.0-0.012) X10*3/uL Nucleated RBC % (auto) 0.0 (0.0-0.2) /100WBC PT 12.4 (11.1-13.3) SEC INR 1.0 (0.9-1.1) VBG pH (7.32-7.43) VBG pCO2 mmHg VBG pO2 mmHg VBG HCO3 (22-26) mmol/L VBG O2 Saturation % VBG Base Excess mmol/L Sodium (135-145) mmol/L Potassium (3.3-5.1) mmol/L Chloride (96-108) mmol/L Carbon Dioxide (22-29) mmol/L Anion Gap (12-20) BUN (9-16) mg/dL Creatinine (0.5-1.4) mg/dL Estim Creat Clear Calc Estimated GFR Random Glucose (60-115) mg/dL Lactic Acid (0.5-2.0) mmol/L Calcium (8.4-10.2) mg/dL Total Bilirubin (0.0-1.0) mg/dL AST (5-37) U/L ALT (0-40) U/L Alkaline Phosphatase (39-117) U/L Troponin I High Sens (<3.5-35.0) ng/L B-Natriuretic Peptide 16 (<100) pg/mL Total Protein (6.5-8.0) g/dL Albumin (3.5-5.0) g/dL COVID-19 (ALEJANDRO) (Negative) COVID-19 Clin Com 08/29/23 08/29/23 08/29/23 Range/Units 14:45 14:45 14:45 WBC (4.8-10.8) X10*3/uL RBC (4.60-5.80) X10*6/uL Hgb (14.0-18.0) g/dl Hct (42.0-52.0) % MCV (80.0-98.0) fL MCH (27.0-33.0) pg MCHC (31.0-36.0) g/dl RDW (11.0-16.0) % Plt Count (160-400) X10*3/uL MPV (9.4-12.4) fL Immature Gran % (Auto) (0.0-0.4) % Neut % (Auto) (45-73) % Lymph % (Auto) (20-40) % Mckenzie % (Auto) (2-11) % Eos % (Auto) (0-4) % Baso % (Auto) (0-2) % Lymph # (Auto) (1.2-4.9) X10*3/uL Mckenzie # (Auto) (0.1-1.2) X10*3/uL Eos # (Auto) (0.0-0.4) X10*3/uL Baso # (Auto) (0.0-0.2) X10*3/uL Abs Immat Gran (auto) (0.00-0.03) X10*3/uL Absolute Neuts (auto) (2.0-8.3) x10*3/uL Absolute Nucleated RBC (0.0-0.012) X10*3/uL Nucleated RBC % (auto) (0.0-0.2) /100WBC PT (11.1-13.3) SEC INR (0.9-1.1) VBG pH (7.32-7.43) VBG pCO2 mmHg VBG pO2 mmHg VBG HCO3 (22-26) mmol/L VBG O2 Saturation % VBG Base Excess mmol/L Sodium 137 (135-145) mmol/L Potassium 4.4 (3.3-5.1) mmol/L Chloride 99 (96-108) mmol/L Carbon Dioxide 29 (22-29) mmol/L Anion Gap 13 (12-20) BUN 13 (9-16) mg/dL Creatinine 0.72 (0.5-1.4) mg/dL Estim Creat Clear Calc 75.5 Estimated GFR > 60 Random Glucose 103 (60-115) mg/dL Lactic Acid 2.2 H* (0.5-2.0) mmol/L Calcium 9.8 D (8.4-10.2) mg/dL Total Bilirubin 0.2 (0.0-1.0) mg/dL AST 16 (5-37) U/L ALT 15 (0-40) U/L Alkaline Phosphatase 118 H (39-117) U/L Troponin I High Sens < 2.7 (<3.5-35.0) ng/L B-Natriuretic Peptide (<100) pg/mL Total Protein 7.3 (6.5-8.0) g/dL Albumin 4.0 (3.5-5.0) g/dL COVID-19 (ALEJANDRO) (Negative) COVID-19 Clin Com 04/03/23 04/03/23 Range/Units 14:53 15:25 WBC (4.8-10.8) X10*3/uL RBC (4.60-5.80) X10*6/uL Hgb (14.0-18.0) g/dl Hct (42.0-52.0) % MCV (80.0-98.0) fL MCH (27.0-33.0) pg MCHC (31.0-36.0) g/dl RDW (11.0-16.0) % Plt Count (160-400) X10*3/uL MPV (9.4-12.4) fL Immature Gran % (Auto) (0.0-0.4) % Neut % (Auto) (45-73) % Lymph % (Auto) (20-40) % Mckenzie % (Auto) (2-11) % Eos % (Auto) (0-4) % Baso % (Auto) (0-2) % Lymph # (Auto) (1.2-4.9) X10*3/uL Mckenzie # (Auto) (0.1-1.2) X10*3/uL Eos # (Auto) (0.0-0.4) X10*3/uL Baso # (Auto) (0.0-0.2) X10*3/uL Abs Immat Gran (auto) (0.00-0.03) X10*3/uL Absolute Neuts (auto) (2.0-8.3) x10*3/uL Absolute Nucleated RBC (0.0-0.012) X10*3/uL Nucleated RBC % (auto) (0.0-0.2) /100WBC PT (11.1-13.3) SEC INR (0.9-1.1) VBG pH 7.41 (7.32-7.43) VBG pCO2 46 mmHg VBG pO2 54 mmHg VBG HCO3 29 H (22-26) mmol/L VBG O2 Saturation 85.0 % VBG Base Excess 4.2 mmol/L Sodium (135-145) mmol/L Potassium (3.3-5.1) mmol/L Chloride (96-108) mmol/L Carbon Dioxide (22-29) mmol/L Anion Gap (12-20) BUN (9-16) mg/dL Creatinine (0.5-1.4) mg/dL Estim Creat Clear Calc Estimated GFR Random Glucose (60-115) mg/dL Lactic Acid (0.5-2.0) mmol/L Calcium (8.4-10.2) mg/dL Total Bilirubin (0.0-1.0) mg/dL AST (5-37) U/L ALT (0-40) U/L Alkaline Phosphatase (39-117) U/L Troponin I High Sens (<3.5-35.0) ng/L B-Natriuretic Peptide (<100) pg/mL Total Protein (6.5-8.0) g/dL Albumin (3.5-5.0) g/dL COVID-19 (ALEJANDRO) Negative (Negative) COVID-19 Clin Com See Note Independent Interpretation I performed an independent interpretation of an: EKG Interpretation: Normal sinus rhythm, RBBB, no STEMI, KY/QTC are within normal limits. Radiology Impression Radiologist Impression: Please see the discussion above Chronic Conditions Patient?s care impacted by: Hypertension and Other COPD Critical Care Time Critical Care Time Critical Care Time: Yes Total Critical Care Time: 30 Attestation: I personally attest to this time spent taking care of the patient. Discharge Plan Discharge Clinical Impression: COPD (chronic obstructive pulmonary disease) Patient Disposition: Still a Patient Instructions: COPD (Chronic Obstructive Pulmonary Disease) (ED) Prescriptions: No Action albuterol sulfate 90 mcg/actuation HFA aerosol inhaler 1 - 2 puff inhalation Q4H PRN (Reason: Wheezing) lisinopril 2.5 mg tablet 5 mg PO DAILY fluticasone furoate-vilanterol [Breo Ellipta] 100-25 mcg/dose blister with device 1 ea inhalation DAILY cefuroxime axetil 500 mg tablet 500 mg PO BID Qty: 8 0RF azithromycin 500 mg tablet 500 mg PO DAILY 5 Days Qty: 4 0RF
[2023-04-03 14:49] LABS: MANUAL DIFF FLAG NO
[2023-04-03 14:51] LABS: Basophils Percent Auto 0.2 % (0-2); Eosinophils Absolute Auto 0.1 X10*3/uL (0.0-0.4); Eosinophils Percent Auto 1.2 % (0-4); Hematocrit 41.7 % (42.0-52.0); Hemoglobin 13.4 g/dl (14.0-18.0); Imm Gran Abs Auto 0.05 X10*3/uL (0.00-0.03); Imm Gran Pct Auto 0.5 % (0.0-0.4); Lymphocytes Percent Auto 10.7 % (20-40); Mean Corpuscular HGB Conc 32.1 g/dl (31.0-36.0); Mean Corpuscular Hemoglobin 28.8 pg (27.0-33.0); Mean Corpuscular Volume 89.5 fL (80.0-98.0); Monocytes Absolute Auto 1.1 X10*3/uL (0.1-1.2); Monocytes Percent Auto 11.5 % (2-11); Neutrophils Percent Auto 75.9 % (45-73); Platelet Count 245 X10*3/uL (160-400); Red Blood Count 4.66 X10*6/uL (4.60-5.80); Red Cell Distribution Width 14.1 % (11.0-16.0); White Blood Count 9.2 X10*3/uL (4.8-10.8)
[2023-04-03 14:56] LABS: Prothrombin Time 12.4 SEC (11.1-13.3)
[2023-04-03 14:58] LABS: VBG Base Excess 4.2 mmol/L; VBG HCO3 29 mmol/L (22-26); VBG pCO2 46 mmHg; VBG pH 7.41 (7.32-7.43); VBG pO2 54 mmHg
[2023-04-03 15:01] LABS: Venous Blood Gas Refer to POC result
[2023-04-03 15:07] VITALS: PULSE 114; RESP 18; O2SAT 96
[2023-04-03] MEDS: Albuterol Sulfate 2.5 MG, Albuterol/Iprat 2.5/0.5MG 3 ML 3 ML INHALE (15:07)
[2023-04-03 15:08] LABS: Alanine Aminotransferase 15 U/L (0-40); Alkaline Phosphatase 118 U/L (39-117); Anion Gap 13 (12-20); Aspartate Amino Transferase 16 U/L (5-37); Bilirubin Total 0.2 mg/dL (0.0-1.0); Blood Urea Nitrogen 13 mg/dL (9-16); Calcium 9.8 mg/dL (8.4-10.2); Carbon Dioxide 29 mmol/L (22-29); Chloride 99 mmol/L (96-108); Creatinine Clr Calc Pharmacy 75.5; Estimated Glomerular Filt Rate > 60; Glucose Random 103 mg/dL (60-115); Potassium 4.4 mmol/L (3.3-5.1); Sodium 137 mmol/L (135-145); Total Protein 7.3 g/dL (6.5-8.0)
[2023-04-03 15:11] VITALS: BP 146/97; PULSE 104; RESP 16; O2SAT 96
[2023-04-03 15:13] LABS: B Type Natriuretic Peptide 16 pg/mL (<100)
[2023-04-03 15:14] LABS: Lactic Acid 2.2 mmol/L (0.5-2.0)
[2023-04-03 15:17] LABS: Troponin-I High Sensitivity < 2.7 ng/L (<3.5-35.0)
[2023-04-03] MEDS: methylPREDNISolone Sod Succ 125 MG/2 ML VIAL IVPUSH (15:26)
[2023-04-03] MEDS: 0.9 % Sodium Chloride 500 ML 999 ML IV (15:27)
[2023-04-03] MEDS: Benzonatate 100 MG CAPSULE 200 MG PO (15:32)
[2023-04-03 16:30] LABS: COVID-19 Test Negative (Negative); IDNOW Serial# BCCEAD1C
[2023-04-03 16:48] LABS: Reflex Lactate? Lactic Acid Added
[2023-04-03 16:51] VITALS: BP 118/75; PULSE 96; RESP 20; O2SAT 97
--- NOTE | 2023-04-03 17:04 | PC.NURSE ---
pt ambulates with steady gait to the bathroom. continues to deny any pain at this time, only complaining of persistent cough
[2023-04-03 17:13] LABS: ~Lactic Acid-LAB USE ONLY 1.8 mmol/L (0.5-2.0)
[2023-04-03 18:34] VITALS: BP 113/78; PULSE 94; RESP 16; O2SAT 96
[2023-04-03 19:05] VITALS: O2SAT 93
--- NOTE | 2023-04-03 19:36 | ED.GENADULT ---
HPI - General Adult General Chief complaint: General Medical Stated complaint: SOB 98% PER EMS Time Seen by Provider: 04/03/23 14:28 Source: patient Mode of arrival: EMS Related Data Home Medications Medication Instructions Recorded Confirmed albuterol sulfate 90 mcg/actuation 1 - 2 puff inhalation Q4H PRN 01/28/23 01/28/23 aerosol inhaler Wheezing fluticasone furoate 100 1 ea inhalation DAILY 01/28/23 01/28/23 mcg-vilanterol 25 mcg/dose inhalation powder (Breo Ellipta) lisinopril 2.5 mg tablet 5 mg PO DAILY 01/28/23 01/28/23 Previous Rx's Medication Instructions Recorded azithromycin 500 mg tablet 500 mg PO DAILY 5 days #4 tabs 01/30/23 cefuroxime axetil 500 mg tablet 500 mg PO BID #8 tabs 01/30/23 prednisone 20 mg tablet 40 mg PO DAILY #12 tabs 04/03/23 Allergies Allergy/AdvReac Type Severity Reaction Status Date / Time No Known Allergies Allergy Verified 01/28/23 19:26 [facility] Past Medical History Medical History COPD (chronic obstructive pulmonary disease) HTN (hypertension) Social History Social History Household Members: Other Housing: Other Housing Other:: rest home Alcohol intake: former Patient Tobacco Use Status: Current someday Tobacco user Tobacco use type: Cigarette Cigarettes Per Day: 6 Smoked in Last 30 Days: Yes Second Hand Smoke Exposure: No Advance Directives: No Advance Directives Information Provided: No service: No Physical Exam ED Vital Signs: Vital Signs - 24 hr 04/03/23 14:34 04/03/23 15:07 04/03/23 15:11 Temperature 97.6 F Pulse Rate 98 114 H 104 H Respiratory Rate 16 18 16 Blood Pressure 133/93 H 146/97 H Pulse Oximetry 97 96 Oxygen Delivery Method Room Air 04/03/23 16:51 04/03/23 18:34 04/03/23 19:05 Temperature Pulse Rate 96 94 Respiratory Rate 20 16 Blood Pressure 118/75 113/78 Pulse Oximetry 97 96 93 Oxygen Delivery Method Room Air Room Air BMI result Body Mass Index 16.3 Medications Administered Discontinued Medications Generic Name Dose Route Start Last Admin Trade Name Freq PRN Reason Stop Dose Admin Benzonatate 200 mg 04/03/23 15:21 04/03/23 15:32 Benzonatate 100 Mg Capsule PO 04/03/23 15:22 200 mg ONCE ONE Administration Albuterol Sulfate 2.5 mg/ 0 mg 04/03/23 14:46 04/03/23 15:07 Albuterol/Ipratropium 3 ml INHALE 04/03/23 14:47 5 dose ONCE ONE Administration Sodium Chloride 500 mls @ 999 mls/hr 04/03/23 15:30 04/03/23 15:27 Ns IV 04/03/23 16:00 999 mls/hr .Q31M ALONSO Administration Methylprednisolone Sodium Succinate 125 mg 04/03/23 15:16 04/03/23 15:26 Methylprednisolone Sod Succ 125 Mg/2 Ml Vial IVPUSH 04/03/23 15:17 125 mg ONCE ONE Administration Medical Decision Making Medical Decision Making [facility] Narrative: Patient is 67 years old history of COPD, presents today with having shortness of breath. Wheezing. My interpretation of patient's chest x-ray was grossly negative for any acute infiltrate. I reviewed the radiologist's reading. My interpretation patient's EKG showed a sinus rhythm heart rate is approximately 100 RI QRS QTC within normal limits there is significant ST segment depression over the anterior leads along with T-wave inversions. Positive LVH. Patient's ABG showed no CO2 retention. After neb treatment patient's symptom improved. COVID test was negative. Patient's lactate likely secondary to albuterol treatment. No evidence for sepsis. Clinically well-appearing. Patient wants to go home. Never had any chest pain. Ambulated well in the emergency department. Post ambulation patient did not appear short of breath. O2 sat maintain at over 93% on room air. Will discharge patient home. In stable condition. Differential Diagnosis COPD, pneumonia, pneumothorax, congestive heart failure, PE Admission/Observation Consideration of admission/observation: Escalation of care including admission/observation considered Symptom improving no need for admission Lab Data [facility] Lab Attestation statement: I reviewed the patient's lab results. 04/03/23 14:45 04/03/23 14:45 Labs: Lab Results 04/03/23 04/03/23 04/03/23 Range/Units 14:44 14:45 14:45 WBC 9.2 (4.8-10.8) X10*3/uL RBC 4.66 (4.60-5.80) X10*6/uL Hgb 13.4 L (14.0-18.0) g/dl Hct 41.7 L (42.0-52.0) % MCV 89.5 (80.0-98.0) fL MCH 28.8 (27.0-33.0) pg MCHC 32.1 (31.0-36.0) g/dl RDW 14.1 (11.0-16.0) % Plt Count 245 (160-400) X10*3/uL MPV 10.0 (9.4-12.4) fL Immature Gran % (Auto) 0.5 H (0.0-0.4) % Neut % (Auto) 75.9 H (45-73) % Lymph % (Auto) 10.7 L (20-40) % [place] % (Auto) 11.5 H (2-11) % Eos % (Auto) 1.2 (0-4) % Baso % (Auto) 0.2 (0-2) % Lymph # (Auto) 1.0 L (1.2-4.9) X10*3/uL [place] # (Auto) 1.1 (0.1-1.2) X10*3/uL Eos # (Auto) 0.1 (0.0-0.4) X10*3/uL Baso # (Auto) 0.0 (0.0-0.2) X10*3/uL Abs Immat Gran (auto) 0.05 H (0.00-0.03) X10*3/uL Absolute Neuts (auto) 7.0 (2.0-8.3) x10*3/uL Absolute Nucleated RBC 0.000 (0.0-0.012) X10*3/uL Nucleated RBC % (auto) 0.0 (0.0-0.2) /100WBC PT 12.4 (11.1-13.3) SEC INR 1.0 (0.9-1.1) VBG pH (7.32-7.43) VBG pCO2 mmHg VBG pO2 mmHg VBG HCO3 (22-26) mmol/L VBG O2 Saturation % VBG Base Excess mmol/L Sodium (135-145) mmol/L Potassium (3.3-5.1) mmol/L Chloride (96-108) mmol/L Carbon Dioxide (22-29) mmol/L Anion Gap (12-20) BUN (9-16) mg/dL Creatinine (0.5-1.4) mg/dL Estim Creat Clear Calc Estimated GFR Random Glucose (60-115) mg/dL Lactic Acid (0.5-2.0) mmol/L Lactic Acid F/U @ 2Hr (0.5-2.0) mmol/L Calcium (8.4-10.2) mg/dL Total Bilirubin (0.0-1.0) mg/dL AST (5-37) U/L ALT (0-40) U/L Alkaline Phosphatase (39-117) U/L Troponin I High Sens (<3.5-35.0) ng/L B-Natriuretic Peptide 16 (<100) pg/mL Total Protein (6.5-8.0) g/dL Albumin (3.5-5.0) g/dL COVID-19 (ALEJANDRO) (Negative) COVID-19 Clin Com 04/03/23 04/03/23 04/03/23 Range/Units 14:45 14:45 14:45 WBC (4.8-10.8) X10*3/uL RBC (4.60-5.80) X10*6/uL Hgb (14.0-18.0) g/dl Hct (42.0-52.0) % MCV (80.0-98.0) fL MCH (27.0-33.0) pg MCHC (31.0-36.0) g/dl RDW (11.0-16.0) % Plt Count (160-400) X10*3/uL MPV (9.4-12.4) fL Immature Gran % (Auto) (0.0-0.4) % Neut % (Auto) (45-73) % Lymph % (Auto) (20-40) % [place] % (Auto) (2-11) % Eos % (Auto) (0-4) % Baso % (Auto) (0-2) % Lymph # (Auto) (1.2-4.9) X10*3/uL [place] # (Auto) (0.1-1.2) X10*3/uL Eos # (Auto) (0.0-0.4) X10*3/uL Baso # (Auto) (0.0-0.2) X10*3/uL Abs Immat Gran (auto) (0.00-0.03) X10*3/uL Absolute Neuts (auto) (2.0-8.3) x10*3/uL Absolute Nucleated RBC (0.0-0.012) X10*3/uL Nucleated RBC % (auto) (0.0-0.2) /100WBC PT (11.1-13.3) SEC INR (0.9-1.1) VBG pH (7.32-7.43) VBG pCO2 mmHg VBG pO2 mmHg VBG HCO3 (22-26) mmol/L VBG O2 Saturation % VBG Base Excess mmol/L Sodium 137 (135-145) mmol/L Potassium 4.4 (3.3-5.1) mmol/L Chloride 99 (96-108) mmol/L Carbon Dioxide 29 (22-29) mmol/L Anion Gap 13 (12-20) BUN 13 (9-16) mg/dL Creatinine 0.72 (0.5-1.4) mg/dL Estim Creat Clear Calc 75.5 Estimated GFR > 60 Random Glucose 103 (60-115) mg/dL Lactic Acid 2.2 H* (0.5-2.0) mmol/L Lactic Acid F/U @ 2Hr (0.5-2.0) mmol/L Calcium 9.8 D (8.4-10.2) mg/dL Total Bilirubin 0.2 (0.0-1.0) mg/dL AST 16 (5-37) U/L ALT 15 (0-40) U/L Alkaline Phosphatase 118 H (39-117) U/L Troponin I High Sens < 2.7 (<3.5-35.0) ng/L B-Natriuretic Peptide (<100) pg/mL Total Protein 7.3 (6.5-8.0) g/dL Albumin 4.0 (3.5-5.0) g/dL COVID-19 (ALEJANDRO) (Negative) COVID-19 Clin Com 04/03/23 04/03/23 04/03/23 Range/Units 14:53 15:25 16:56 WBC (4.8-10.8) X10*3/uL RBC (4.60-5.80) X10*6/uL Hgb (14.0-18.0) g/dl Hct (42.0-52.0) % MCV (80.0-98.0) fL MCH (27.0-33.0) pg MCHC (31.0-36.0) g/dl RDW (11.0-16.0) % Plt Count (160-400) X10*3/uL MPV (9.4-12.4) fL Immature Gran % (Auto) (0.0-0.4) % Neut % (Auto) (45-73) % Lymph % (Auto) (20-40) % [place] % (Auto) (2-11) % Eos % (Auto) (0-4) % Baso % (Auto) (0-2) % Lymph # (Auto) (1.2-4.9) X10*3/uL [place] # (Auto) (0.1-1.2) X10*3/uL Eos # (Auto) (0.0-0.4) X10*3/uL Baso # (Auto) (0.0-0.2) X10*3/uL Abs Immat Gran (auto) (0.00-0.03) X10*3/uL Absolute Neuts (auto) (2.0-8.3) x10*3/uL Absolute Nucleated RBC (0.0-0.012) X10*3/uL Nucleated RBC % (auto) (0.0-0.2) /100WBC PT (11.1-13.3) SEC INR (0.9-1.1) VBG pH 7.41 (7.32-7.43) VBG pCO2 46 mmHg VBG pO2 54 mmHg VBG HCO3 29 H (22-26) mmol/L VBG O2 Saturation 85.0 % VBG Base Excess 4.2 mmol/L Sodium (135-145) mmol/L Potassium (3.3-5.1) mmol/L Chloride (96-108) mmol/L Carbon Dioxide (22-29) mmol/L Anion Gap (12-20) BUN (9-16) mg/dL Creatinine (0.5-1.4) mg/dL Estim Creat Clear Calc Estimated GFR Random Glucose (60-115) mg/dL Lactic Acid (0.5-2.0) mmol/L Lactic Acid F/U @ 2Hr 1.8 (0.5-2.0) mmol/L Calcium (8.4-10.2) mg/dL Total Bilirubin (0.0-1.0) mg/dL AST (5-37) U/L ALT (0-40) U/L Alkaline Phosphatase (39-117) U/L Troponin I High Sens (<3.5-35.0) ng/L B-Natriuretic Peptide (<100) pg/mL Total Protein (6.5-8.0) g/dL Albumin (3.5-5.0) g/dL COVID-19 (ALEJANDRO) Negative (Negative) COVID-19 Clin Com See Note ABG Data Attestation ABG: I personally reviewed and interpreted this ABG as follows: Interpretation: Patient's venous blood gas showed a pH of 7.41 pCO2 of 46 no evidence of CO2 retention Independent Interpretation I performed an independent interpretation of an: EKG (My interpretation of patient's EKG as above) and Plain X-Ray Interpretation: My interpretation of patient's chest x-ray was grossly negative Radiology Impression Discussion of test interpretation with radiology: I have reviewed the radiologist's reading. External Record Review External record reviewed: Inpatient record Tests considered The following testing was considered but not selected: CTA but felt patient has no risk for PE Chronic Conditions Patient?s care impacted by: Hypertension COPD Discharge Plan Discharge Clinical Impression: COPD (chronic obstructive pulmonary disease) Patient Disposition: Home, Self-Care Instructions: COPD (Chronic Obstructive Pulmonary Disease) (ED) Prescriptions: New prednisone 20 mg tablet 40 mg PO DAILY Qty: 12 0RF Rx Instructions: 2 tabs daily for 4 days follow by 1 tab per day for 2 days No Action albuterol sulfate 90 mcg/actuation HFA aerosol inhaler 1 - 2 puff inhalation Q4H PRN (Reason: Wheezing) lisinopril 2.5 mg tablet 5 mg PO DAILY fluticasone furoate-vilanterol [Breo Ellipta] 100-25 mcg/dose blister with device 1 ea inhalation DAILY cefuroxime axetil 500 mg tablet 500 mg PO BID Qty: 8 0RF azithromycin 500 mg tablet 500 mg PO DAILY 5 Days Qty: 4 0RF Referrals: Physician,Unknown J [Primary Care Provider] - 04/05/23
--- NOTE | 2023-04-03 19:56 | ED_ITS ---
HPI - General Adult General Chief complaint: General Medical Stated complaint: SOB 98% PER EMS Time Seen by Provider: 04/03/23 14:28 Source: patient Mode of arrival: EMS Related Data Home Medications Medication Instructions Recorded Confirmed albuterol sulfate 90 mcg/actuation 1 - 2 puff inhalation Q4H PRN 01/28/23 01/28/23 aerosol inhaler Wheezing fluticasone furoate 100 1 ea inhalation DAILY 01/28/23 01/28/23 mcg-vilanterol 25 mcg/dose inhalation powder (Breo Ellipta) lisinopril 2.5 mg tablet 5 mg PO DAILY 01/28/23 01/28/23 Previous Rx's Medication Instructions Recorded azithromycin 500 mg tablet 500 mg PO DAILY 5 days #4 tabs 01/30/23 cefuroxime axetil 500 mg tablet 500 mg PO BID #8 tabs 01/30/23 prednisone 20 mg tablet 40 mg PO DAILY #12 tabs 04/03/23 Allergies Allergy/AdvReac Type Severity Reaction Status Date / Time No Known Allergies Allergy Verified 01/28/23 19:26 [facility] Past Medical History Medical History COPD (chronic obstructive pulmonary disease) HTN (hypertension) Social History Social History Household Members: Other Housing: Other Housing Other:: rest home Alcohol intake: former Patient Tobacco Use Status: Current someday Tobacco user Tobacco use type: Cigarette Cigarettes Per Day: 6 Smoked in Last 30 Days: Yes Second Hand Smoke Exposure: No Advance Directives: No Advance Directives Information Provided: No service: No Physical Exam ED Vital Signs: Vital Signs - 24 hr 04/03/23 14:34 04/03/23 15:07 04/03/23 15:11 Temperature 97.6 F Pulse Rate 98 114 H 104 H Respiratory Rate 16 18 16 Blood Pressure 133/93 H 146/97 H Pulse Oximetry 97 96 Oxygen Delivery Method Room Air 04/03/23 16:51 04/03/23 18:34 04/03/23 19:05 Temperature Pulse Rate 96 94 Respiratory Rate 20 16 Blood Pressure 118/75 113/78 Pulse Oximetry 97 96 93 Oxygen Delivery Method Room Air Room Air BMI result Body Mass Index 16.3 Medications Administered Discontinued Medications Generic Name Dose Route Start Last Admin Trade Name Freq PRN Reason Stop Dose Admin Benzonatate 200 mg 04/03/23 15:21 04/03/23 15:32 Benzonatate 100 Mg Capsule PO 04/03/23 15:22 200 mg ONCE ONE Administration Albuterol Sulfate 2.5 mg/ 0 mg 04/03/23 14:46 04/03/23 15:07 Albuterol/Ipratropium 3 ml INHALE 04/03/23 14:47 5 dose ONCE ONE Administration Sodium Chloride 500 mls @ 999 mls/hr 04/03/23 15:30 04/03/23 15:27 Ns IV 04/03/23 16:00 999 mls/hr .Q31M ALONSO Administration Methylprednisolone Sodium Succinate 125 mg 04/03/23 15:16 04/03/23 15:26 Methylprednisolone Sod Succ 125 Mg/2 Ml Vial IVPUSH 04/03/23 15:17 125 mg ONCE ONE Administration Medical Decision Making Lab Data 04/03/23 14:45 04/03/23 14:45 Labs: Lab Results 04/03/23 04/03/23 04/03/23 Range/Units 14:44 14:45 14:45 WBC 9.2 (4.8-10.8) X10*3/uL RBC 4.66 (4.60-5.80) X10*6/uL Hgb 13.4 L (14.0-18.0) g/dl Hct 41.7 L (42.0-52.0) % MCV 89.5 (80.0-98.0) fL MCH 28.8 (27.0-33.0) pg MCHC 32.1 (31.0-36.0) g/dl RDW 14.1 (11.0-16.0) % Plt Count 245 (160-400) X10*3/uL MPV 10.0 (9.4-12.4) fL Immature Gran % (Auto) 0.5 H (0.0-0.4) % Neut % (Auto) 75.9 H (45-73) % Lymph % (Auto) 10.7 L (20-40) % [place] % (Auto) 11.5 H (2-11) % Eos % (Auto) 1.2 (0-4) % Baso % (Auto) 0.2 (0-2) % Lymph # (Auto) 1.0 L (1.2-4.9) X10*3/uL [place] # (Auto) 1.1 (0.1-1.2) X10*3/uL Eos # (Auto) 0.1 (0.0-0.4) X10*3/uL Baso # (Auto) 0.0 (0.0-0.2) X10*3/uL Abs Immat Gran (auto) 0.05 H (0.00-0.03) X10*3/uL Absolute Neuts (auto) 7.0 (2.0-8.3) x10*3/uL Absolute Nucleated RBC 0.000 (0.0-0.012) X10*3/uL Nucleated RBC % (auto) 0.0 (0.0-0.2) /100WBC PT 12.4 (11.1-13.3) SEC INR 1.0 (0.9-1.1) VBG pH (7.32-7.43) VBG pCO2 mmHg VBG pO2 mmHg VBG HCO3 (22-26) mmol/L VBG O2 Saturation % VBG Base Excess mmol/L Sodium (135-145) mmol/L Potassium (3.3-5.1) mmol/L Chloride (96-108) mmol/L Carbon Dioxide (22-29) mmol/L Anion Gap (12-20) BUN (9-16) mg/dL Creatinine (0.5-1.4) mg/dL Estim Creat Clear Calc Estimated GFR Random Glucose (60-115) mg/dL Lactic Acid (0.5-2.0) mmol/L Lactic Acid F/U @ 2Hr (0.5-2.0) mmol/L Calcium (8.4-10.2) mg/dL Total Bilirubin (0.0-1.0) mg/dL AST (5-37) U/L ALT (0-40) U/L Alkaline Phosphatase (39-117) U/L Troponin I High Sens (<3.5-35.0) ng/L B-Natriuretic Peptide 16 (<100) pg/mL Total Protein (6.5-8.0) g/dL Albumin (3.5-5.0) g/dL COVID-19 (ALEJANDRO) (Negative) COVID-19 Clin Com 04/03/23 04/03/23 04/03/23 Range/Units 14:45 14:45 14:45 WBC (4.8-10.8) X10*3/uL RBC (4.60-5.80) X10*6/uL Hgb (14.0-18.0) g/dl Hct (42.0-52.0) % MCV (80.0-98.0) fL MCH (27.0-33.0) pg MCHC (31.0-36.0) g/dl RDW (11.0-16.0) % Plt Count (160-400) X10*3/uL MPV (9.4-12.4) fL Immature Gran % (Auto) (0.0-0.4) % Neut % (Auto) (45-73) % Lymph % (Auto) (20-40) % [place] % (Auto) (2-11) % Eos % (Auto) (0-4) % Baso % (Auto) (0-2) % Lymph # (Auto) (1.2-4.9) X10*3/uL [place] # (Auto) (0.1-1.2) X10*3/uL Eos # (Auto) (0.0-0.4) X10*3/uL Baso # (Auto) (0.0-0.2) X10*3/uL Abs Immat Gran (auto) (0.00-0.03) X10*3/uL Absolute Neuts (auto) (2.0-8.3) x10*3/uL Absolute Nucleated RBC (0.0-0.012) X10*3/uL Nucleated RBC % (auto) (0.0-0.2) /100WBC PT (11.1-13.3) SEC INR (0.9-1.1) VBG pH (7.32-7.43) VBG pCO2 mmHg VBG pO2 mmHg VBG HCO3 (22-26) mmol/L VBG O2 Saturation % VBG Base Excess mmol/L Sodium 137 (135-145) mmol/L Potassium 4.4 (3.3-5.1) mmol/L Chloride 99 (96-108) mmol/L Carbon Dioxide 29 (22-29) mmol/L Anion Gap 13 (12-20) BUN 13 (9-16) mg/dL Creatinine 0.72 (0.5-1.4) mg/dL Estim Creat Clear Calc 75.5 Estimated GFR > 60 Random Glucose 103 (60-115) mg/dL Lactic Acid 2.2 H* (0.5-2.0) mmol/L Lactic Acid F/U @ 2Hr (0.5-2.0) mmol/L Calcium 9.8 D (8.4-10.2) mg/dL Total Bilirubin 0.2 (0.0-1.0) mg/dL AST 16 (5-37) U/L ALT 15 (0-40) U/L Alkaline Phosphatase 118 H (39-117) U/L Troponin I High Sens < 2.7 (<3.5-35.0) ng/L B-Natriuretic Peptide (<100) pg/mL Total Protein 7.3 (6.5-8.0) g/dL Albumin 4.0 (3.5-5.0) g/dL COVID-19 (ALEJANDRO) (Negative) COVID-19 Clin Com 04/03/23 04/03/23 04/03/23 Range/Units 14:53 15:25 16:56 WBC (4.8-10.8) X10*3/uL RBC (4.60-5.80) X10*6/uL Hgb (14.0-18.0) g/dl Hct (42.0-52.0) % MCV (80.0-98.0) fL MCH (27.0-33.0) pg MCHC (31.0-36.0) g/dl RDW (11.0-16.0) % Plt Count (160-400) X10*3/uL MPV (9.4-12.4) fL Immature Gran % (Auto) (0.0-0.4) % Neut % (Auto) (45-73) % Lymph % (Auto) (20-40) % [place] % (Auto) (2-11) % Eos % (Auto) (0-4) % Baso % (Auto) (0-2) % Lymph # (Auto) (1.2-4.9) X10*3/uL [place] # (Auto) (0.1-1.2) X10*3/uL Eos # (Auto) (0.0-0.4) X10*3/uL Baso # (Auto) (0.0-0.2) X10*3/uL Abs Immat Gran (auto) (0.00-0.03) X10*3/uL Absolute Neuts (auto) (2.0-8.3) x10*3/uL Absolute Nucleated RBC (0.0-0.012) X10*3/uL Nucleated RBC % (auto) (0.0-0.2) /100WBC PT (11.1-13.3) SEC INR (0.9-1.1) VBG pH 7.41 (7.32-7.43) VBG pCO2 46 mmHg VBG pO2 54 mmHg VBG HCO3 29 H (22-26) mmol/L VBG O2 Saturation 85.0 % VBG Base Excess 4.2 mmol/L Sodium (135-145) mmol/L Potassium (3.3-5.1) mmol/L Chloride (96-108) mmol/L Carbon Dioxide (22-29) mmol/L Anion Gap (12-20) BUN (9-16) mg/dL Creatinine (0.5-1.4) mg/dL Estim Creat Clear Calc Estimated GFR Random Glucose (60-115) mg/dL Lactic Acid (0.5-2.0) mmol/L Lactic Acid F/U @ 2Hr 1.8 (0.5-2.0) mmol/L Calcium (8.4-10.2) mg/dL Total Bilirubin (0.0-1.0) mg/dL AST (5-37) U/L ALT (0-40) U/L Alkaline Phosphatase (39-117) U/L Troponin I High Sens (<3.5-35.0) ng/L B-Natriuretic Peptide (<100) pg/mL Total Protein (6.5-8.0) g/dL Albumin (3.5-5.0) g/dL COVID-19 (ALEJANDRO) Negative (Negative) COVID-19 Clin Com See Note Discharge Plan Discharge Clinical Impression: COPD (chronic obstructive pulmonary disease) Patient Disposition: Home, Self-Care Instructions: COPD (Chronic Obstructive Pulmonary Disease) (ED) Prescriptions: New prednisone 20 mg tablet 40 mg PO DAILY Qty: 12 0RF Rx Instructions: 2 tabs daily for 4 days follow by 1 tab per day for 2 days No Action albuterol sulfate 90 mcg/actuation HFA aerosol inhaler 1 - 2 puff inhalation Q4H PRN (Reason: Wheezing) lisinopril 2.5 mg tablet 5 mg PO DAILY fluticasone furoate-vilanterol [Breo Ellipta] 100-25 mcg/dose blister with device 1 ea inhalation DAILY cefuroxime axetil 500 mg tablet 500 mg PO BID Qty: 8 0RF azithromycin 500 mg tablet 500 mg PO DAILY 5 Days Qty: 4 0RF Referrals: Physician,Amanda J [Primary Care Provider] - 04/05/23
== END 2023-04-03 20:26 | disposition home or self-care (01) ==
PROVIDERS: Student in an Organized Health Care Education/Training Program; Emergency Provider Emergency Medicine Emergency Medical Services
DX: J44.9 Chronic obstructive pulmonary disease, unspecified (principal); R06.02 Shortness of breath; F17.210 Nicotine dependence, cigarettes, uncomplicated; Z20.822 Contact with and (suspected) exposure to COVID-19; Z20.828 Contact with and (suspected) exposure to other viral communicable diseases; Z79.899 Other long term (current) drug therapy; Z71.6 Tobacco abuse counseling
CPT/HCPCS: 36415; 71045; 80053; 82803; 83605; 83880; 84484; 85025; 85610; 87040; 87205; 87635; 93005; 94640; 96361; 96374; 99285; J2930

== ENCOUNTER 2024-06-01 11:29 | Inpatient (IN) | payer MEDICARE, MEDICAID, SELFPAY ==
[2024-06-01] VITALS (8 sets, daily range): BP systolic 101–122; BP diastolic 70–90; PULSE 95–125; RESP 16–28; TEMP 36.5–37.8; O2SAT 92–96; BMI 17.8; BMI 17.0
--- NOTE | ~2024-06-01 | CT_ITS ---
EXAMINATION: CT ANGIOGRAPHY ABDOMEN AND PELVIS CLINICAL INFORMATION: eval AAA COMPARISON: CTA chest June 01, 2024 TECHNIQUE: Initial noncontrast localizing boot and saddle repair person images were obtained. A timing bolus at the level of the celiac artery was calculated. Subsequently, arterial phase multidetector volumetric imaging was performed through the abdomen and pelvis following the administration of 80 mL Omnipaque 350 intravenous contrast. No contrast reaction reported. Sagittal and coronal reformatted images were obtained on the technologist workstation. After extensive post-processing on a dedicated 3-D workstation, 3-D reformatted images were uploaded to PACS and reviewed as well. This CT examination was performed using dose optimization techniques as appropriate, variously including the following: *Automated exposure control *Adjustment of mA and/or kV according to patient size (this includes techniques or standardized protocols for targeted exams where dose is matched to indication/reason for exam; i.e. extremities or head) *Use of iterative reconstruction technique DLP: 181 mGy-cm FINDINGS: VASCULAR FINDINGS: Aorta: Infrarenal eccentrically thrombosed fusiform aortic aneurysm measuring 4.7 x 5.3 x 5.3 cm (AP x TV x CC). No stigmata of impending rupture. No dissection. Mesenteric Arteries: Celiac artery is patent. Superior mesenteric artery patent. Inferior mesenteric artery patent. Renal arteries: Three right and single left renal arteries. Renal arteries are patent and without stenosis or other vascular anomaly. Iliac arteries: The common, external and internal iliac arteries are patent. Proximal femoral vessels are patent. NONVASCULAR: Lung Bases: Bibasilar consolidations, right greater than left, concerning for pneumonia. Severe emphysema. Liver: Homogeneous in attenuation. Normal in size. Gallbladder: Noninflamed. Biliary System: No intrahepatic or extrahepatic biliary dilation. Pancreas: Homogeneous in attenuation. Spleen: Normal in size. Genitourinary: Bilateral kidneys demonstrate symmetric enhancement. No perinephric fluid collection. No renal calculi. No hydroureteronephrosis. Adrenal Glands: Unremarkable. Reproductive: Prostate present. Gastrointestinal: The visualized alimentary tract is normal in course. No evidence of obstruction. Appendix: The appendix is not visualized; however, no pericecal inflammatory changes are seen in the right lower quadrant. Peritoneum: No pneumoperitoneum. No intra-abdominal fluid collection. Lymph Nodes: No pathologically enlarged abdominal or pelvic lymph nodes. Soft Tissues/Musculoskeletal: Moderate bilateral L4-5 neural foraminal stenosis secondary to disc osteophyte complex. No acute fractures or focal osseous lesions. CT/CT angio abdomen pelvis IMPRESSION: VASCULAR FINDINGS: Infrarenal abdominal aortic aneurysm with eccentric thrombus measuring 4.7 x 5.3 x [address] evidence of impending rupture. Based on published guidelines in J Am Lula Radiol 2013; 10(10):789-794 and J Vasc Surg. 2018; 67:2-77, the recommendation for an abdominal aortic aneurysm with diameter 4.5-5.4 cm is vascular consultation and subsequent follow-up every 6 months. NONVASCULAR FINDINGS: 1. Bibasilar pneumonia. See separately dictated report for CT chest findings performed June 01, 2024. 2. No acute abdominal or pelvic pathology. Fleischner guidelines were followed. Electronically signed by: Hilton Benavides DO 06/03/2024 11:46 AM EDT
--- NOTE | ~2024-06-01 | CT_ITS ---
EXAMINATION: CT ANGIOGRAM OF THE CHEST WITH AND WITHOUT CONTRAST (CT PULMONARY ANGIOGRAM FOR PE) CLINICAL INFORMATION: SOB, hypoxia COMPARISON: No pertinent prior studies are available for comparison. TECHNIQUE: Prior to contrast administration, noncontrast localization images were obtained. Subsequently, multidetector volumetric imaging was performed from the thoracic inlet to below the diaphragms following the administration of 65 mL Omnipaque 350 intravenous contrast. No contrast reaction reported. Sagittal, coronal, and MIP oblique sagittal reformatted images were obtained on the CT workstation, uploaded to PACS, and reviewed. Total exam dose-length product 188 mGy-cm FINDINGS: QUALITY OF STUDY/CONTRAST BOLUS: Satisfactory. PULMONARY ARTERIES: No central or segmental pulmonary emboli. THORACIC AORTA: Enlarged measuring 4 cm in diameter. The visualized abdominal aorta is aneurysmal measuring up to 5.3 cm. LUNG: Severe centrilobular and paraseptal emphysema. Bibasilar dependent consolidations, more severe on the right. Multiple solid nodules bilaterally including a 1 cm spiculated nodule right upper lobe (5:14), a 1.1 pedunculated nodule in the right upper lobe (5:22), and a 1.3 cm solid nodule left lower lobe (5:49). Multiple additional nodular densities along the minor fissure. MEDIASTINUM: Normal heart size. No pericardial effusion. No hilar or mediastinal lymphadenopathy. No evidence of septal bowing or right heart strain. Moderate coronary artery calcification. CHEST WALL/AXILLA: No axillary or internal mammary lymphadenopathy. OSSEOUS STRUCTURES: No acute or suspicious osseous abnormality. UPPER ABDOMEN: Unremarkable. No reflux of contrast into the hepatic veins to suggest elevated right heart pressures. CT/CT angio chest PE protocol IMPRESSION: 1. No acute pulmonary embolus. 2. Bibasilar dependent consolidations concerning for infection. 3. Multiple bilateral spiculated nodules measuring over 1 cm. According to the UPDATED 2017 Fleischner Society recommendations, the advised follow-up imaging for multiple solid nodules with the largest measuring greater than [address] at 3 months, PET/CT, or tissue sampling as clinicalyl appropriate if nodules are located in the upper lobe and/or demostrate suspicious morphology. 4. Abdominal aortic aneurysm is partially visualized and measures 5.3 cm. Best Practice Recommendation: Based on published guidelines in J Am Lula Radiol 2013; 10(10):789-794 and J Vasc Surg. 2018; 67:2-77, the recommendation for an abdominal aortic aneurysm with diameter 4.5-5.4 cm is vascular consultation and subsequent follow-up every 6 months. VTE: negative Electronically signed by: Mark Barboza MD 06/01/2024 03:12 PM EDT
--- NOTE | 2024-06-01 11:51 | ECG_ITS ---
Test Reason : DIZZINEES Blood Pressure : / mmHG Vent. Rate : 100 BPM Atrial Rate : 100 BPM P-R Int : 126 ms QRS Dur : 132 ms QT Int : 384 ms P-R-T Axes : 087 060 055 degrees QTc Int : 495 ms Normal sinus rhythm Biatrial enlargement Right bundle branch block Abnormal ECG When compared with ECG of 03-APR-2023 14:52, No significant change was found Referred By: Veronica Hidalgo Electronically Signed By:LOS JANG
--- NOTE | 2024-06-01 11:55 | ED_ITS ---
HPI - General Adult General Chief complaint: Dyspnea Stated complaint: DIZZY LIGHTHEADED Time Seen by Provider: 06/01/24 11:55 Source: patient and EMS Mode of arrival: EMS Limitations: no limitations History of Present Illness ED Provider: Veronica Hidalgo PA-C HPI narrative: 68-year-old male with a past medical history of COPD presents to the ED from [facility] after the staff noticed he desaturated this morning to 88% while on RA, he was told he had a fever at [facility] for which he received a dose of paracetomal. Patient states that he did experience a cough with shortness of breath 4 days ago. No worsening symptoms since then. Denies any sick contacts or recent travel. He does not use supplemental oxygen at baseline. 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 Patient endorses smoking. Denies COOK, N/V or chest pain. Onset (ago): day(s) Relieving factors: none Exacerbating factors: none Associated symptoms: cough and fever/chills Treatments prior to arrival: other (Tylenol) Related Data Home Medications ?Medication ?Instructions ?Recorded ?Confirmed albuterol sulfate 90 mcg/actuation 1 - 2 puff inhalation Q4H PRN 01/28/23 01/28/23 aerosol inhaler Wheezing fluticasone furoate 100 1 ea inhalation DAILY 01/28/23 01/28/23 mcg-vilanterol 25 mcg/dose inhalation powder (Breo Ellipta) lisinopril 2.5 mg tablet 5 mg PO DAILY 01/28/23 01/28/23 Previous Rx's ?Medication ?Instructions ?Recorded azithromycin 500 mg tablet 500 mg PO DAILY 5 days #4 tabs 01/30/23 cefuroxime axetil 500 mg tablet 500 mg PO BID #8 tabs 01/30/23 prednisone 20 mg tablet 40 mg (2 x 20 mg) PO DAILY #12 tabs 04/03/23 Allergies Allergy/AdvReac Type Severity Reaction Status Date / Time No Known Allergies Allergy Verified 06/01/24 11:56 Review of Systems 2 Constitutional: Constitutional: Reports no additional constitutional complaints, Denies chills, Reports fever(s) and Denies night sweats Eyes: Eyes: Reports no additional eye complaints, Denies blurry vision, Denies change in vision, Denies diplopia, Denies eye discharge, Denies loss of vision and Denies eye pain ENT: Denies dizziness Cardiovascular: Cardiovascular: Reports no additional cardiovascular complaints, Denies chest pain, Denies lightheadedness, Denies Loss of Consciousness and Denies dyspnea Respiratory: Respiratory: Reports no additional respiratory complaints, Reports cough, Denies dyspnea and Denies wheezing Gastrointestinal: Gastrointestinal: Reports no additional gastrointestinal complaints, Denies abdominal pain, Denies melena, Denies hematochezia, Denies change in bowel habits and Denies change in stool character Genitourinary: Genitourinary: Reports no additional male genitourinary complaints, Denies hematuria, Denies oliguria, Denies difficulty urinating, Denies dysuria, Denies urinary frequency, Denies urinary hesitancy, Denies urinary incontinence and Denies urinary urgency Musculoskeletal: Musculoskeletal: Reports no additional musculoskeletal complaints, Denies numbness and Denies tingling Neurologic: Denies dizziness, Denies loss of vision, Denies numbness and Denies tingling Psychiatric: Psychiatric: Reports no additional psychiatric complaints Endocrine: Endocrine: Reports no additional endocrine complaints Hematologic/Lymphatic: Hematologic/Lymphatic: Reports no additional hematologic/lymphatic complaints Allergic/Immunologic: Allergic/Immunologic: Reports no additional allergic/immunologic complaints and Denies wheezing PMFSH Past Medical History Attestation statement: The following information was validated with the patient. Source: old records reviewed and nursing notes reviewed Medical History HTN (hypertension) COPD (chronic obstructive pulmonary disease) Social History Social History Household Members: Other Housing: Other Housing Other:: rest home Alcohol intake: former Patient Tobacco Use Status: Current someday Tobacco user Tobacco use type: Cigarette Cigarettes Per Day: 6 Smoked in Last 30 Days: Yes Second Hand Smoke Exposure: No Use of substances other than those prescribed or required for medical reasons: No Advance Directives: No Advance Directives Information Provided: No Do you have a plan to hurt others: No Plan service: No Physical Exam ED Vital Signs: Vital Signs - 24 hr 06/01/24 11:40 06/01/24 11:55 06/01/24 11:57 Temperature 97.7 F 98.0 F 98.0 F Pulse Rate 95 98 98 Respiratory Rate 16 18 18 Blood Pressure 105/76 101/73 101/73 Pulse Oximetry 94 96 96 Oxygen Delivery Method Room Air Room Air Room Air 06/01/24 12:45 06/01/24 14:33 Temperature 97.8 F 98 F Pulse Rate 95 96 Respiratory Rate 16 28 H Blood Pressure 105/71 102/70 Pulse Oximetry 94 94 Oxygen Delivery Method Room Air Room Air BMI result Body Mass Index 17.8 Const General: cooperative, no acute distress, alert and awake Nutritional Appearance: well nourished Orientation/consciousness: patient oriented x3 Limitations: no limitations HENMT Head: Yes normal to inspection and Yes atraumatic Ears: hearing grossly normal bilaterally and external ears normal General nose exam: Normal external nose present, no nasal discharge noted and no epistaxis Face and sinus: Yes normal facial exam, No abrasion and No laceration Mouth: Normal oral and palatal mucosa present, no drooling and no muffled voice Eyes General: appearance normal, both eyes and all related structures Periorbital: periorbital findings normal Eyelids: Yes eyelids normal Conjunctivae: conjunctivae normal Pupils: Equal, round and reactive pupils present EOM: EOMs intact bilaterally Neck Neck: Yes normal visual inspection, Yes full ROM and Yes no lymphadenopathy Chest Chest palpation & inspection: normal inspection of the chest Resp Effort & Inspection: normal respiratory effort, able to speak in complete sentences, no audible wheezes and not labored Auscultation: no rhonchi and no wheezes Cardio Rate: tachycardic Rhythm: regular rhythm Heart sounds: no gallops, no murmurs and no rubs GI Inspection: Yes normal to inspection General: Yes deferred Neuro General: patient oriented x3 and moves all extremities Cranial nerves: Yes Equal, round and reactive pupils present Cognition (Neuro): normal cognition Extrem General: Yes normal to inspection, Yes full ROM and Yes capillary refill normal Psych Appearance: grossly normal Mental Status: mental status grossly normal Affect: normal affect Attitude: cooperative Thought process: Normal thought process present Thought content: Normal thought content present Insight: Good insight present (Psych) Medications Administered Discontinued Medications Generic Name Dose Route Start Last Admin Trade Name Freq PRN Reason Stop Dose Admin Ceftriaxone Sodium 1 gm 06/01/24 12:47 06/01/24 13:07 Ceftriaxone Sodium 1 Gm Vial IVPUSH 06/01/24 12:48 1 gm ONCE ONE Administration Iohexol 100 ml 06/01/24 13:32 06/01/24 13:32 Iohexol 350 Mg/Ml 100 Ml Infus..Btl IV 06/01/24 13:33 65 ml ONCE ONE Administration Medical Decision Making Medical Decision Making [facility] Narrative: Patient is a 68 year old assigned male at with a history of COPD presenting to the emergency department today with a cough, fever, and hypoxia. Patient's physical exam was as noted in the physical exam portion of this note. Patient's blood work showed an elevated WBC count of 15.5 with 23% bands. Patient's EKG was unremarkable. Patient's chest CT showed evidence of PNA. I was suspicious of sepsis in this patient at 1247. Patient was given IV Ceftriaxone. I spoke to the hospitalist team who agreed to admission. I explained my physical exam findings as well as all test results to the patient. I answered all questions asked by the patient. Patient verbalized agreement and understanding with this treatment plan and admission. Differential Diagnosis Differential Diagnoses: The differential diagnosis associated with the presentation includes PNA Sepsis COVID-19 Influenza RSV Admission/Observation Consideration of admission/observation: Escalation of care including admission/observation considered Patient admitted. Consult Healthcare Provider Management of the patient was discussed with: Hospitalist (agreed to admission as noted in the MDM Rationale portion of this note) Lab Data [facility] Lab Attestation statement: I reviewed the patient's lab results. My interpretation of these results are in the MDM Rationale portion of this note. 06/01/24 12:05 06/01/24 12:05 Labs: Lab Results 06/01/24 06/01/24 Range/Units 12:05 12:59 WBC 15.5 H (4.8-10.8) X10*3/uL RBC 4.25 L (4.60-5.80) X10*6/uL Hgb 12.2 L (14.0-18.0) g/dl Hct 37.0 L (42.0-52.0) % MCV 87.1 (80.0-98.0) fL MCH 28.7 (27.0-33.0) pg MCHC 33.0 (31.0-36.0) g/dl RDW 15.3 (11.0-16.0) % Plt Count 194 (160-400) X10*3/uL MPV 10.1 (9.4-12.4) fL Immature Gran % (Auto) Cancelled Neut % (Auto) Cancelled Lymph % (Auto) Cancelled [place] % (Auto) Cancelled Eos % (Auto) Cancelled Baso % (Auto) Cancelled Lymph # (Auto) Cancelled [place] # (Auto) Cancelled Eos # (Auto) Cancelled Baso # (Auto) Cancelled Abs Immat Gran (auto) Cancelled Absolute Neuts (auto) Cancelled Absolute Nucleated RBC 0.000 (0.0-0.012) X10*3/uL Nucleated RBC % (auto) 0.0 (0.0-0.2) /100WBC Neutrophils % (Manual) 70 (45-73) % Band Neutrophils % 23 H (3-5) % Lymphocytes % (Manual) 2 L (20-40) % Monocytes % (Manual) 5 (2-11) % Abs Neuts (Manual) 14.4 H (2.0-8.3) X10*3/uL Lymphocytes # (Manual) 0.3 L (1.2-4.9) X10*3/uL Monocytes # (Manual) 0.8 (0.1-1.2) X10*3/uL Toxic Vacuolation PRESENT Platelet Estimate NORMAL (NORMAL) Plt Morphology Comment NORMAL RBC Morphology NOTED Froylan Cells 1+ (0-2) /OIF Schistocytes 1+ (0-2) /OIF VBG pH 7.40 (7.32-7.43) VBG pCO2 54 mmHg VBG pO2 33 mmHg VBG HCO3 34 H (22-26) mmol/L VBG O2 Saturation 44.0 % VBG Base Excess 7.6 mmol/L Sodium 131 L (135-145) mmol/L Potassium 3.8 (3.3-5.1) mmol/L Chloride 95 L (96-108) mmol/L Carbon Dioxide 26 (22-29) mmol/L Anion Gap 14 (12-20) BUN 16 (9-16) mg/dL Creatinine 0.71 (0.5-1.4) mg/dL Estim Creat Clear Calc 78.1 Estimated GFR > 60 Random Glucose 131 H (60-115) mg/dL Calcium 9.4 (8.4-10.2) mg/dL Magnesium 1.9 (1.6-2.6) mg/dL Total Bilirubin 0.9 (0.0-1.0) mg/dL AST 31 (5-37) U/L ALT 36 (0-40) U/L Alkaline Phosphatase 107 (39-117) U/L Troponin I High Sens 3.7 (<3.5-35.0) ng/L Total Protein 7.0 (6.5-8.0) g/dL Albumin 3.5 (3.5-5.0) g/dL Influenza Type A (PCR) NEGATIVE (Negative) Influenza Type B (PCR) NEGATIVE (Negative) RSV RNA Qual (PCR) NEGATIVE (Negative) SARS-CoV-2 RNA (RT-PCR) NEGATIVE (Negative) Independent Interpretation I performed an independent interpretation of an: EKG and CT Scan Interpretation: My interpretation is in agreement with the radiologist's impression of this imaging study. L EXAMINATION: CT ANGIOGRAM OF THE CHEST WITH AND WITHOUT CONTRAST (CT PULMONARY ANGIOGRAM FOR PE) CLINICAL INFORMATION: SOB, hypoxia COMPARISON: No pertinent prior studies are available for comparison. TECHNIQUE: Prior to contrast administration, noncontrast localization images were obtained. Subsequently, multidetector volumetric imaging was performed from the thoracic inlet to below the diaphragms following the administration of 65 mL Omnipaque 350 intravenous contrast. No contrast reaction reported. Sagittal, coronal, and MIP oblique sagittal reformatted images were obtained on the CT workstation, uploaded to PACS, and reviewed. Total exam dose-length product 188 mGy-cm FINDINGS: QUALITY OF STUDY/CONTRAST BOLUS: Satisfactory. PULMONARY ARTERIES: No central or segmental pulmonary emboli. THORACIC AORTA: Enlarged measuring 4 cm in diameter. The visualized abdominal aorta is aneurysmal measuring up to 5.3 cm. LUNG: Severe centrilobular and paraseptal emphysema. Bibasilar dependent consolidations, more severe on the right. Multiple solid nodules bilaterally including a 1 cm spiculated nodule right upper lobe (5:14), a 1.1 pedunculated nodule in the right upper lobe (5:22), and a 1.3 cm solid nodule left lower lobe (5:49). Multiple additional nodular densities along the minor fissure. MEDIASTINUM: Normal heart size. No pericardial effusion. No hilar or mediastinal lymphadenopathy. No evidence of septal bowing or right heart strain. Moderate coronary artery calcification. CHEST WALL/AXILLA: No axillary or internal mammary lymphadenopathy. OSSEOUS STRUCTURES: No acute or suspicious osseous abnormality. UPPER ABDOMEN: Unremarkable. No reflux of contrast into the hepatic veins to suggest elevated right heart pressures. CT/CT angio chest PE protocol IMPRESSION: 1. No acute pulmonary embolus. 2. Bibasilar dependent consolidations concerning for infection 3. Multiple bilateral spiculated nodules measuring over 1 cm. According to the UPDATED 2017 Fleischner Society recommendations, the advised follow-up imaging for multiple solid nodules with the largest measuring greater than [address] at 3 months, PET/CT, or tissue sampling as clinicalyl appropriate if nodules are located inthe upper lobe and/or demostrate suspicious morphology. 4. Abdominal aortic aneurysm is partially visualized and measures 5.3cm. Best Practice Recommendation: Based on published guidelines in J Am Lula Radiol 2013; 10(10):789-794 and J Vasc Surg. 2018; 67:2-77, the recommendation for an abdominal aortic aneurysm with diameter 4.5-5.4 cm is vascular consultation and subsequent follow-up every 6 months. VTE: negative Electronically signed by: Mark Barboza MD 06/01/2024 03:12 PM EDT RP Dictated By: Mark Barboza MD Signed By: Electronically signed by Mark Barboza MD 06/01/24 1512 Vent. Rate: 100 BPM Atrial Rate: 100 BPM P-R Int: 126 ms QRS Dur: 132 ms QT Int: 384 ms P-R-T Axes: 087 060 055 degrees QTc Int: 495 ms Normal sinus rhythm Biatrial enlargement Right bundle branch block Abnormal ECG When compared with ECG of 03-APR-2023 14:52, No significant change was found DD/ 1153 Radiology Impression Discussion of test interpretation with radiology: I have reviewed the radiologist's reading. Independent Historian Clinical information obtained from an independent historian. History obtained from or confirmed by: EMS (EMS provided additional history and confirmed the history provided by the patient) Critical Care Time Critical Care Time Critical Care Time: Yes Total Critical Care Time: 52 Attestation: I spent 52 minutes of Critical Care Time with this patient. This does not include time spent on separately reported billable procedures. Discharge Plan Discharge Clinical Impression: Pneumonia, Sepsis Patient Disposition: Admitted As Inpatient
[2024-06-01 12:13] LABS: Hemoglobin 12.2 g/dl (14.0-18.0); Mean Corpuscular Hemoglobin 28.7 pg (27.0-33.0); Mean Corpuscular Volume 87.1 fL (80.0-98.0); Mean Platelet Volume 10.1 fL (9.4-12.4); Platelet Count 194 X10*3/uL (160-400); Red Blood Count 4.25 X10*6/uL (4.60-5.80); Red Cell Distribution Width 15.3 % (11.0-16.0); White Blood Count 15.5 X10*3/uL (4.8-10.8)
[2024-06-01 12:44] LABS: Anion Gap 14 (12-20)
[2024-06-01 12:45] LABS: Alanine Aminotransferase 36 U/L (0-40); Albumin Level 3.5 g/dL (3.5-5.0); Alkaline Phosphatase 107 U/L (39-117); Aspartate Amino Transferase 31 U/L (5-37); Bilirubin Total 0.9 mg/dL (0.0-1.0); Blood Urea Nitrogen 16 mg/dL (9-16); Calcium 9.4 mg/dL (8.4-10.2); Carbon Dioxide 26 mmol/L (22-29); Chloride 95 mmol/L (96-108); Creatinine Clr Calc Pharmacy 78.1; Estimated Glomerular Filt Rate > 60; Glucose Random 131 mg/dL (60-115); Magnesium 1.9 mg/dL (1.6-2.6); Neutrophils Percent Manual 70 % (45-73); Potassium 3.8 mmol/L (3.3-5.1); Sodium 131 mmol/L (135-145)
[2024-06-01 12:47] LABS: Band Neutrophils Percent 23 % (3-5); Burr Cells 1+ (0-2) /OIF; Lymphocytes Absolute Manual 0.3 X10*3/uL (1.2-4.9); Lymphocytes Percent Manual 2 % (20-40); Monocytes Absolute Manual 0.8 X10*3/uL (0.1-1.2); Monocytes Percent Manual 5 % (2-11); Neutrophils Absolute Manual 14.4 X10*3/uL (2.0-8.3); Platelet Estimate NORMAL (NORMAL); Platelet Morphology Comment NORMAL; RBC Morphology NOTED; Schistocytes 1+ (0-2) /OIF
[2024-06-01 12:48] LABS: Toxic Vacuolation PRESENT
[2024-06-01 12:49] LABS: Troponin-I High Sensitivity 3.7 ng/L (<3.5-35.0)
[2024-06-01 13:03] LABS: Venous Blood Gas Refer to POC result
[2024-06-01 13:03] LABS: VBG Base Excess 7.6 mmol/L; VBG HCO3 34 mmol/L (22-26); VBG pCO2 54 mmHg; VBG pO2 33 mmHg
[2024-06-01] MEDS: cefTRIAXone sodium 1 GM VIAL IVPUSH (13:07)
[2024-06-01 13:15] LABS: Influenza A PCR NEGATIVE (Negative); Influenza B PCR NEGATIVE (Negative); Resp Syncy Virus RNA Qual PCR NEGATIVE (Negative); SARS COV2 PCR INHOUSE NEGATIVE (Negative)
[2024-06-01] MEDS: iohexoL 350 MG/ML 100 ML INFUS..BTL IV (13:32)
--- NOTE | 2024-06-01 15:01 | P.HPHOSP_ITS ---
History of Present Illness Date of Service: 06/01/24 Chief Complaint: Hypoxia 68-year-old gentleman [facility] with past medical history significant for hypertension, COPD not on home oxygen, was sent to [place] ED since he was noted to have hypoxia finger oximetry 88% on room air,As per patient since last few days he feels tired, fatigued, had chills and sweating, no fevers, associated with worsening baseline cough, productive of clear phlegm, and has been noticing persistent decreased energy today he was noted to be hypoxic, he denies associated symptoms of nausea vomiting, abdominal pain, diarrhea, no urinary symptoms of urgency frequency, in emergency room workup showed elevated WBC 15.5 blood sugar 131 stable electrolytes and renal function EKG showed mild tachycardia no acute ischemic changes, on examination patient noted to have tachycardia, tachypnea oxygenation stable 94% on room air, CTA chest obtained report is pending ,seems to have right lower lobe pneumonia, COVID, influenza and RSV negative patient received 1 dose of IV ceftriaxone, lactic acid and blood cultures sent patient will be admitted to hospital with a diagnosis of sepsis due to community-acquired pneumonia. Review of Systems 2 Review of Systems: General no headache no dizziness, no fever CVS no chest pain, no palpitation. Respiratory cough productive of clear phlegm no worsening shortness of breath Gastrointestinal no nausea no vomiting, no abdominal pain no urgency no frequency Skin no rash All other symptoms reviewed and negative [facility] Medical History (Updated 06/02/24 @ 09:57 by Lauro Soria MD) COPD (chronic obstructive pulmonary disease) Pulmonary nodules HTN (hypertension) Social History [facility]: [facility] Other Housing Other:: independent living Do you presently have visiting nurse or other home services: Yes ([facility] at facility) Alcohol intake: former Patient Tobacco Use Status: Current everyday Tobacco user Tobacco use type: Cigarette Cigarettes Per Day: 3 Smoked in Last 30 Days: Yes Patient Interested in Nicotine Replacement: No Patient Given Instructions on How to Stop Smoking: Yes Date Education Initiated: 06/01/24 Second Hand Smoke Exposure: No Use of substances other than those prescribed or required for medical reasons: No Currently Displaying Signs/Symptoms of Drug Intoxication Withdrawal: No Have you been hit, kicked, punched, or otherwise hurt by someone within the past year? If so, by whom?: No Do you feel safe in your current relationship?: Yes Is there a partner from a previous relationship who is making you feel unsafe now?: No Are you made to feel afraid or neglected: No Advance Directives: No Advance Directives Information Provided: No Do you have a plan to hurt others: No Plan Recently lost weight without trying: Yes How much weight loss: 14-23 pounds Eating poorly because of decreased appetite: Yes Nutrition screen score: 5 Nutrition Risks: No Nutritional Risk Poor oral hygiene: No service: No Meds Allergies Allergy/AdvReac Type Severity Reaction Status Date / Time No Known Allergies Allergy Verified 06/01/24 11:56 Active Medications: Current Medications Acetaminophen (Acetaminophen 325 Mg Tablet) 650 mg PO Q6H PRN PRN Reason: Pain, Mild (Pain Scale 1-3), fever or headache Calcium Carbonate (Calcium Carbonate 750 Mg Tab.Chew) 750 mg PO Q4H PRN PRN Reason: Heartburn Enoxaparin Sodium (Enoxaparin Sodium 40 Mg/0.4 Ml Syringe) 40 mg SUBCUT Q24H ALONSO Magnesium Hydroxide (Milk Of Magnesia 30 Ml Oral.Susp) 30 ml PO DAILY PRN PRN Reason: Constipation Melatonin (Melatonin 3 Mg Tablet) 6 mg PO BEDTIME PRN PRN Reason: Insomnia Ondansetron HCl (Ondansetron Hcl 4 Mg/2 Ml Vial) 4 mg IVPUSH Q8H PRN PRN Reason: Nausea and Vomiting Polyethylene Glycol (Polyethylene Glycol 3350 17 Gm Powd.Pack) 17 gm PO DAILY PRN PRN Reason: Constipation Sodium Chloride (0.9 % Sodium Chloride Flush 3 Ml Syringe) 3 ml IVFLUSH QSHIFT [facility] Home Medications ?Medication ?Instructions ?Recorded ?Confirmed ?Last Taken ?Type albuterol sulfate 90 mcg/actuation 1 - 2 puff inhalation Q4H PRN 01/28/23 06/01/24 Unknown History aerosol inhaler Wheezing acetaminophen 325 mg tablet 650 mg PO Q4H PRN pain or fever 06/01/24 06/01/24 Unknown History aluminum-mag hydroxide-simethicone 10 ml PO DAILY PRN Constipation 06/01/24 06/01/24 Unknown History 200 mg-200 mg-20 mg/5 mL oral susp aspirin 81 mg tablet,delayed 81 mg PO DAILY 06/01/24 06/01/24 Unknown History release atorvastatin 40 mg tablet 40 mg PO DAILY 06/01/24 06/01/24 Unknown History fluticasone fur. 200 mcg-umeclid 1 ea inhalation DAILY 06/01/24 06/01/24 Unknown History 62.5 mcg-vilant 25 mcg inhalat.powder (Trelegy Ellipta) lisinopril 5 mg tablet 5 mg PO DAILY 06/01/24 06/01/24 Unknown History magnesium hydroxide 400 mg/5 mL 30 ml PO DAILY PRN Constipation 06/01/24 06/01/24 Unknown History oral suspension (Milk of Magnesia) Physical Exam 2 Vital Signs and Narrative: Vital Signs: Last Vital Signs Temp 98 F 06/01/24 14:33 Pulse 96 06/01/24 14:33 Resp 28 H 06/01/24 14:33 BP 102/70 06/01/24 14:33 Pulse Ox 94 06/01/24 14:33 O2 Del Method Room Air 06/01/24 14:33 BMI result Body Mass Index 17.8 Const: Other: General awake alert x3, resting comfortably in no acute distress. Anicteric sclera Neck supple no JVD. CVS regular rate rhythm, Respiratory lungs clear to auscultation, no respiratory distress, no wheeze, no rhonchi. Gastrointestinal abdomen soft, non tender, bowel sounds audible Extremities no edema. Neuro non focal Skin no rash Psych appropriate affect Results Labs 06/02/24 05:15 06/02/24 05:15 Labs: Laboratory Results - last 24 hr 06/01/24 06/01/24 12:05 12:59 MCV 87.1 MCH 28.7 MCHC 33.0 RDW 15.3 Plt Count 194 MPV 10.1 Immature Gran % (Auto) Cancelled Neut % (Auto) Cancelled Lymph % (Auto) Cancelled [place] % (Auto) Cancelled Eos % (Auto) Cancelled Baso % (Auto) Cancelled Lymph # (Auto) Cancelled [place] # (Auto) Cancelled Eos # (Auto) Cancelled Baso # (Auto) Cancelled Abs Immat Gran (auto) Cancelled Absolute Neuts (auto) Cancelled Absolute Nucleated RBC 0.000 Nucleated RBC % (auto) 0.0 Neutrophils % (Manual) 70 Band Neutrophils % 23 H Lymphocytes % (Manual) 2 L Monocytes % (Manual) 5 Abs Neuts (Manual) 14.4 H Lymphocytes # (Manual) 0.3 L Monocytes # (Manual) 0.8 Toxic Vacuolation PRESENT Platelet Estimate NORMAL Plt Morphology Comment NORMAL RBC Morphology NOTED Froylan Cells 1+ (0-2) Schistocytes 1+ (0-2) VBG pH 7.40 VBG pCO2 54 VBG pO2 33 VBG HCO3 34 H VBG O2 Saturation 44.0 VBG Base Excess 7.6 Anion Gap 14 Estim Creat Clear Calc 78.1 Estimated GFR > 60 Random Glucose 131 H Calcium 9.4 Magnesium 1.9 Total Bilirubin 0.9 AST 31 ALT 36 Alkaline Phosphatase 107 Troponin I High Sens 3.7 Total Protein 7.0 Albumin 3.5 Influenza Type A (PCR) NEGATIVE Influenza Type B (PCR) NEGATIVE RSV RNA Qual (PCR) NEGATIVE SARS-CoV-2 RNA (RT-PCR) NEGATIVE Assessment and Plan (1) Sepsis: Status: Acute (2) Pneumonia: Qualifiers: Laterality: bilateral Lung location: lower lobe of lung Pneumonia type: due to unspecified organism Qualified Code(s): J18.9 - Pneumonia, unspecified organism Status: Acute Plan 67-year-old gentleman with past medical history significant for COPD, hypertension not on home O2 resident of [facility] sent to [place] ED due to hypoxia, patient noted to be tachypneic tachycardic with leukocytosis CTA chest pending but likely has right sided pneumonia with sepsis therefore admit to hospital for iv antibiotic and close clinical monitoring. Sepsis due to right lower lobe community-acquired pneumonia Meets sepsis criteria due to leukocytosis, tachypnea and tachycardia. Follow CTA chest report,clinically no evidence PE Admit to medical floor IV ceftriaxone and IV azithromycin Follow blood cultures, lactic acid, strep pna urine antigen, Legionella antigen Cough medication, supportive care stable oxygenation, follow closely Mild acute hyponatremia likely due to dehydration will give 1 L of normal saline, follow labs Hypertension soft blood pressure hold antihypertensives follow BP. COPD no acute exacerbation will place on as needed updraft treatment hold IV steroids follow clinical course BMI 17.8 [id number] malnutrition recommend supplement. Tobacco use disorder, smokes 1-3 cigarettes a day counseling done. DVT prophylaxis with Lovenox Full code In my clinical judgment patient need to night inpatient hospitalization for management of sepsis due to community-acquired pneumonia, requiring IV antibiotic and close clinical follow-up. Quality Stroke Does the patient have a stroke diagnosis?: No VTE Prior VTE?: No VTE Risk Level:: Medical - moderate - high VTE Device Contraindication: Treatment Not Indicated VTE Drug Contraindication: N/A - Med Ordered
[2024-06-01 15:52] LABS: Lactic Acid 1.3 mmol/L (0.5-2.0)
[2024-06-01] MEDS: Azithromycin 500 MG in 0.9 % Sodium Chloride 250 ML 125 MG IV (16:06)
[2024-06-01] MEDS: 0.9 % Sodium Chloride 1,000 ML 100 ML IVCONT (16:06)
--- NOTE | 2024-06-01 16:07 | PC.NURSE ---
Pt. refusing to remove his personal socks or his black undershirt. States he will freeze without them on. [facility].
--- NOTE | 2024-06-01 16:12 | PC.NURSE ---
Refusing Lovenox shot.
--- NOTE | 2024-06-01 16:14 | PC.NURSE ---
This RN has asked pt. multiple times to provide a urine sample. Urinal has been at pt.'s bedside for a number of hours. Pt. continues to state that he does not feel like he can go to the bathroom at this time and will try again later. Floor RN aware
--- NOTE | 2024-06-01 17:45 | PHA.MEDREC ---
Addendum entered by Thomas Jackson 06/01/24 17:49: reviewed Original Note: Pharmacy Consult ? Medication Reconciliation Pharmacy has completed the medication reconciliation. Used list from facility to confirm medications. Claim history shows lisinopril 2.5 mg filled every other fill, alternating with 5 mg. Called facility and they have nothing on his file about it. Nurse Zuleika asked the patient and he said he always takes 5 mg.
[2024-06-01 18:53] LABS: Appearance Urine Clear; Color Urine Dark Yellow; Glucose Urine UA Negative (Negative); Leukocyte Esterase Urine Negative (Negative); Nitrite Urine Negative (Negative); PH 5.5 (5.0-9.0); Specific Gravity - Urine >= 1.030 (1.005-1.025); UMIC TRIGGER UACC YES; Urine Blood Negative (Negative); Urine Ketones Negative (Negative); Urine Protein 100 (2+) mg/dL (Neg-Trace)
[2024-06-01 19:04] LABS: Bacteria Urine None Seen (None Seen); RBC Urine 0-2 /HPF (0-2); WBC Urine 0-5 /HPF (0-5)
[2024-06-02 04:00] VITALS: BP 109/74; PULSE 108; RESP 18; TEMP 36.7; O2SAT 96
[2024-06-02 05:26] LABS: Hematocrit 33.3 % (42.0-52.0); Mean Corpuscular Hemoglobin 28.9 pg (27.0-33.0); Mean Corpuscular Volume 87.6 fL (80.0-98.0); Mean Platelet Volume 10.3 fL (9.4-12.4); Platelet Count 199 X10*3/uL (160-400); Red Cell Distribution Width 15.5 % (11.0-16.0); White Blood Count 11.2 X10*3/uL (4.8-10.8)
[2024-06-02 05:42] LABS: Anion Gap 11 (12-20); Blood Urea Nitrogen 12 mg/dL (9-16); Calcium 8.3 mg/dL (8.4-10.2); Carbon Dioxide 26 mmol/L (22-29); Chloride 100 mmol/L (96-108); Creatinine Clr Calc Pharmacy 88.2; Estimated Glomerular Filt Rate > 60; Glucose Random 112 mg/dL (60-115); Potassium 3.8 mmol/L (3.3-5.1); Sodium 133 mmol/L (135-145)
[2024-06-02 07:37] VITALS: BP 113/70; PULSE 102; RESP 16; TEMP 36.2; O2SAT 94
[2024-06-02] MEDS: 0.9 % Sodium Chloride Flush 3 ML SYRINGE IVFLUSH ×3 (08:53→20:14)
[2024-06-02] MEDS: Aspirin Enteric Coated 81 MG TABLET.DR PO (08:53)
--- NOTE | 2024-06-02 09:09 | PM.CNPUL ---
History of Present Illness History of Present Illness Consult date: 06/02/24 Chief complaint: Sepsis due to community acquired pneumonia Narrative: This is an inpatient pulmonary consultation. The patient is a 68-year-old gentleman resident of [facility] with past medical history significant for hypertension, COPD not on home oxygen, was sent to [facility] since he was noted to have hypoxia finger oximetry 88% on room air,As per patient since last few days he feels tired, fatigued, had chills and sweating, no fevers, associated with worsening baseline cough, productive of clear phlegm, and has been noticing persistent decreased energy today he was noted to be hypoxic, he denies associated symptoms of nausea vomiting, abdominal pain, diarrhea, no urinary symptoms of urgency frequency, in emergency room workup showed elevated WBC 15.5 blood sugar 131 stable electrolytes and renal function EKG showed mild tachycardia no acute ischemic changes, on examination patient noted to have tachycardia, tachypnea oxygenation stable 94% on room air, CTA chest obtained report is pending ,seems to have right lower lobe pneumonia, COVID, influenza and RSV negative patient received 1 dose of IV ceftriaxone, lactic acid and blood cultures sent patient will be admitted to hospital with a diagnosis of sepsis due to community-acquired pneumonia. On further questioning the patient states that he has dollars at [facility] pulmonary. The patient did have a CT scan of the chest back over the summer and found to have normal pulmonary nodules. Therefore he underwent a PET scan. The PET scan did demonstrate some FDG activity although hard to differentiate between infectious versus inflammatory or malignant processes. There was a question of aspiration. He had a repeat CT scan in April again demonstrating the pulmonary nodules extensive emphysema and now some airspace disease. The question of respiration did come up. Therefore, the patient will continue following closely with [facility] after treating the pneumonia. Indeed there may be a component of microaspiration or immunocompromised state with multiple infectious processes. Review of Systems Constitutional: Constitutional: Reports no additional constitutional complaints, Denies chills, Reports fever(s) and Denies night sweats Eyes: Eyes: Reports no additional eye complaints, Denies blurry vision, Denies change in vision, Denies diplopia, Denies eye discharge, Denies loss of vision and Denies eye pain ENT: Denies dizziness Cardiovascular: Cardiovascular: Reports no additional cardiovascular complaints, Denies chest pain, Denies lightheadedness, Denies Loss of Consciousness and Denies dyspnea Respiratory: Respiratory: Reports no additional respiratory complaints, Reports cough, Denies dyspnea and Denies wheezing Gastrointestinal: Gastrointestinal: Reports no additional gastrointestinal complaints, Denies abdominal pain, Denies melena, Denies hematochezia, Denies change in bowel habits and Denies change in stool character Genitourinary: Genitourinary: Reports no additional male genitourinary complaints, Denies hematuria, Denies oliguria, Denies difficulty urinating, Denies dysuria, Denies urinary frequency, Denies urinary hesitancy, Denies urinary incontinence and Denies urinary urgency Musculoskeletal: Musculoskeletal: Reports no additional musculoskeletal complaints, Denies numbness and Denies tingling Neurologic: Denies dizziness, Denies loss of vision, Denies numbness and Denies tingling Psychiatric: Psychiatric: Reports no additional psychiatric complaints Endocrine: Endocrine: Reports no additional endocrine complaints Hematologic/Lymphatic: Hematologic/Lymphatic: Reports no additional hematologic/lymphatic complaints Allergic/Immunologic: Allergic/Immunologic: Reports no additional allergic/immunologic complaints and Denies wheezing PMFSH Past Medical History Medical History (Updated 06/02/24 @ 09:57 by Lauro Soria MD) COPD (chronic obstructive pulmonary disease) Pulmonary nodules HTN (hypertension) Social History Social History Household Members: Other Household Members Other:: Parisa Pagan Home Housing: Other Housing Other:: independent living Do you presently have visiting nurse or other home services: Yes ([facility] at facility) Alcohol intake: former Patient Tobacco Use Status: Current everyday Tobacco user Tobacco use type: Cigarette Cigarettes Per Day: 3 Smoked in Last 30 Days: Yes Patient Interested in Nicotine Replacement: No Patient Given Instructions on How to Stop Smoking: Yes Date Education Initiated: 06/01/24 Second Hand Smoke Exposure: No Use of substances other than those prescribed or required for medical reasons: No Currently Displaying Signs/Symptoms of Drug Intoxication Withdrawal: No Have you been hit, kicked, punched, or otherwise hurt by someone within the past year? If so, by whom?: No Do you feel safe in your current relationship?: Yes Is there a partner from a previous relationship who is making you feel unsafe now?: No Are you made to feel afraid or neglected: No Advance Directives: No Advance Directives Information Provided: No Do you have a plan to hurt others: No Plan Recently lost weight without trying: Yes How much weight loss: 14-23 pounds Eating poorly because of decreased appetite: Yes Nutrition screen score: 5 Nutrition Risks: No Nutritional Risk Poor oral hygiene: No service: No Meds Allergies Allergy/AdvReac Type Severity Reaction Status Date / Time No Known Allergies Allergy Verified 06/01/24 11:56 Active Medications: Current Medications Acetaminophen (Acetaminophen 325 Mg Tablet) 650 mg PO Q6H PRN PRN Reason: Pain, Mild (Pain Scale 1-3), fever or headache Albuterol/Ipratropium (Albuterol/Iprat 2.5/0.5mg 3 Ml Ampul.Neb) 3 ml INHALE RQ4H WHILE AWAKE PRN PRN Reason: sob Aspirin (Aspirin Enteric Coated 81 Mg Tablet.Dr) 81 mg PO DAILY [facility] Last Admin: 06/02/24 08:53 Dose: 81 mg Atorvastatin Calcium (Atorvastatin Calcium 40 Mg Tablet) 40 mg PO BEDTIME ALONSO Calcium Carbonate (Calcium Carbonate 750 Mg Tab.Chew) 750 mg PO Q4H PRN PRN Reason: Heartburn Ceftriaxone Sodium (Ceftriaxone Sodium 1 Gm Vial) 1 gm IVPUSH Q24H ALONSO Enoxaparin Sodium (Enoxaparin Sodium 40 Mg/0.4 Ml Syringe) 40 mg SUBCUT Q24H [facility] Last Admin: 06/01/24 16:14 Dose: Not Given Fluticasone/Umeclidinium/Vilanterol (Fluticasone/Umeclidinium/Vilanterol 200/62.5/25 Blst.W.Dev) 1 puff INHALE RDAILY [facility] Guaifenesin/Dextromethorphan (Guaifenesin Dm 200/20/10 Ml 10 Ml Syrup) 10 ml PO Q6H PRN PRN Reason: Cough Azithromycin 500 mg/ Sodium (Chloride) 250 mls @ 125 mls/hr IV Q24H [facility] Last Infusion: 06/01/24 18:06 Dose: Infused Magnesium Hydroxide (Milk Of Magnesia 30 Ml Oral.Susp) 30 ml PO DAILY PRN PRN Reason: Constipation Melatonin (Melatonin 3 Mg Tablet) 6 mg PO BEDTIME PRN PRN Reason: Insomnia Ondansetron HCl (Ondansetron Hcl 4 Mg/2 Ml Vial) 4 mg IVPUSH Q8H PRN PRN Reason: Nausea and Vomiting Polyethylene Glycol (Polyethylene Glycol 3350 17 Gm Powd.Pack) 17 gm PO DAILY PRN PRN Reason: Constipation Sodium Chloride (0.9 % Sodium Chloride Flush 3 Ml Syringe) 3 ml IVFLUSH QSHIFT [facility] Last Admin: 06/02/24 08:53 Dose: 3 ml Home Medications ?Medication ?Instructions ?Recorded ?Confirmed ?Last Taken ?Type albuterol sulfate 90 mcg/actuation 1 - 2 puff inhalation Q4H PRN 01/28/23 06/01/24 Unknown History aerosol inhaler Wheezing acetaminophen 325 mg tablet 650 mg PO Q4H PRN pain or fever 06/01/24 06/01/24 Unknown History aluminum-mag hydroxide-simethicone 10 ml PO DAILY PRN Constipation 06/01/24 06/01/24 Unknown History 200 mg-200 mg-20 mg/5 mL oral susp aspirin 81 mg tablet,delayed 81 mg PO DAILY 06/01/24 06/01/24 Unknown History release atorvastatin 40 mg tablet 40 mg PO DAILY 06/01/24 06/01/24 Unknown History fluticasone fur. 200 mcg-umeclid 1 ea inhalation DAILY 06/01/24 06/01/24 Unknown History 62.5 mcg-vilant 25 mcg inhalat.powder (Trelegy Ellipta) lisinopril 5 mg tablet 5 mg PO DAILY 06/01/24 06/01/24 Unknown History magnesium hydroxide 400 mg/5 mL 30 ml PO DAILY PRN Constipation 06/01/24 06/01/24 Unknown History oral suspension (Milk of Magnesia) Physical Exam Vital Signs: Vital Signs: Last Vital Signs Temp 97.1 F 06/02/24 07:37 Pulse 102 H 06/02/24 07:37 Resp 16 06/02/24 07:37 BP 113/70 06/02/24 07:37 Pulse Ox 94 06/02/24 07:37 O2 Del Method Room Air 06/02/24 07:37 BMI result Body Mass Index 17.0 Const: General: comfortable HEENT: Head: Yes normocephalic Neck: Neck: Yes supple Chest: Chest palpation & inspection: normal inspection of the chest Resp: Effort & Inspection: normal respiratory effort Auscultation: crackles and diminished lung sounds Cardio: Heart sounds: S1 normal heart sound present and S2 normal heart sound present GI: Palpation (GI): Soft to palpation Skin: General skin exam: no rashes or lesions noted Extrem: General: No cyanosis Results Laboratory Findings 06/02/24 05:15 06/02/24 05:15 Abnormal lab findings: Abnormal Labs 06/01/24 06/01/24 06/01/24 12:05 12:59 18:37 WBC 15.5 H RBC 4.25 L Hgb 12.2 L Hct 37.0 L Band Neutrophils % 23 H Lymphocytes % (Manual) 2 L Abs Neuts (Manual) 14.4 H Lymphocytes # (Manual) 0.3 L VBG HCO3 34 H Sodium 131 L Chloride 95 L Anion Gap Random Glucose 131 H Calcium Ur Specific [place] >= 1.030 H Urine Protein 100 (2+) H 06/02/24 05:15 WBC 11.2 H RBC 3.80 L Hgb 11.0 L Hct 33.3 L Band Neutrophils % Lymphocytes % (Manual) Abs Neuts (Manual) Lymphocytes # (Manual) VBG HCO3 Sodium 133 L Chloride Anion Gap 11 L Random Glucose Calcium 8.3 L D Ur Specific [place] Urine Protein Assessment and Plan (1) Pneumonia: Qualifiers: Pneumonia type: due to unspecified organism Laterality: bilateral Lung location: lower lobe of lung Qualified Code(s): J18.9 - Pneumonia, unspecified organism Status: Acute (2) COPD (chronic obstructive pulmonary disease): Qualifiers: COPD type: COPD with acute lower respiratory infection Qualified Code(s): J44.0 - Chronic obstructive pulmonary disease with (acute) lower respiratory infection Status: Acute (3) Pulmonary nodules: Status: Acute Plan continue antibiotic coverage x 8 days respiratory therapy Titrate O2 to keep pox>88%, will need a walking oximetry test upon discharge F/U with serial CT chest at [facility] with the Pulmonary clinic Procedures Date of Service Date of Service: 06/02/24
--- NOTE | 2024-06-02 11:39 | P.PNIM_ITS ---
Subjective Subjective Date of Service: 06/02/24 Interval History: Feeling better, no acute overnight events denies fever, no chills, shortness of breath improving persistent cough, tolerating diet no acute events overnight. Review of Systems All other system reviewed and are negative. Physical Exam 2 Vital Signs: Vital Signs: Last Vital Signs Temp 97.1 F 06/02/24 07:37 Pulse 102 H 06/02/24 07:37 Resp 16 06/02/24 07:37 BP 113/70 06/02/24 07:37 Pulse Ox 94 06/02/24 07:37 O2 Del Method Room Air 06/02/24 07:37 BMI result Body Mass Index 17.0 Const: Other: General awake alert x3, resting comfortably in no acute distress. Anicteric sclera Neck supple no JVD. CVS regular rate rhythm, Respiratory lungs diminished, no respiratory distress, right base crackles, no wheeze, no rhonchi. Gastrointestinal abdomen soft, non tender, bowel sounds audible Extremities no edema. Neuro non focal Skin no rash Psych appropriate affect Objective Data Active Medications Acetaminophen (Acetaminophen 325 Mg Tablet) 650 mg PO Q6H PRN PRN Reason: Pain, Mild (Pain Scale 1-3), fever or headache Albuterol/Ipratropium (Albuterol/Iprat 2.5/0.5mg 3 Ml Ampul.Neb) 3 ml INHALE RQ4H WHILE AWAKE PRN PRN Reason: sob Aspirin (Aspirin Enteric Coated 81 Mg Tablet.) 81 mg PO DAILY [facility] Last Admin: 06/02/24 08:53 Dose: 81 mg Documented By: JAVON Atorvastatin Calcium (Atorvastatin Calcium 40 Mg Tablet) 40 mg PO BEDTIME [facility] Calcium Carbonate (Calcium Carbonate 750 Mg Tab.Chew) 750 mg PO Q4H PRN PRN Reason: Heartburn Ceftriaxone Sodium (Ceftriaxone Sodium 1 Gm Vial) 1 gm IVPUSH Q24H [facility] Enoxaparin Sodium (Enoxaparin Sodium 40 Mg/0.4 Ml Syringe) 40 mg SUBCUT Q24H [facility] Last Admin: 06/01/24 16:14 Dose: Not Given Documented By: MARSHALL Non-Admin Reason: Patient Refused Fluticasone/Umeclidinium/Vilanterol (Fluticasone/Umeclidinium/Vilanterol 200/62.5/25 Blst.W.Dev) 1 puff INHALE RDAILY [facility] Guaifenesin/Dextromethorphan (Guaifenesin Dm 200/20/10 Ml 10 Ml Syrup) 10 ml PO Q6H PRN PRN Reason: Cough Azithromycin 500 mg/ Sodium (Chloride) 250 mls @ 125 mls/hr IV Q24H [facility] Last Infusion: 06/01/24 18:06 Dose: Infused Documented By: PHANLPAUL Magnesium Hydroxide (Milk Of Magnesia 30 Ml Oral.Susp) 30 ml PO DAILY PRN PRN Reason: Constipation Melatonin (Melatonin 3 Mg Tablet) 6 mg PO BEDTIME PRN PRN Reason: Insomnia Ondansetron HCl (Ondansetron Hcl 4 Mg/2 Ml Vial) 4 mg IVPUSH Q8H PRN PRN Reason: Nausea and Vomiting Polyethylene Glycol (Polyethylene Glycol 3350 17 Gm Powd.Pack) 17 gm PO DAILY PRN PRN Reason: Constipation Sodium Chloride (0.9 % Sodium Chloride Flush 3 Ml Syringe) 3 ml IVFLUSH QSHIFT [facility] Last Admin: 06/02/24 08:53 Dose: 3 ml Documented By: COTEMA Labs 06/02/24 05:15 06/02/24 05:15 Labs: Laboratory Results - last 24 hr 06/01/24 06/01/24 06/01/24 12:05 12:59 15:38 MCV 87.1 MCH 28.7 MCHC 33.0 RDW 15.3 Plt Count 194 MPV 10.1 Immature Gran % (Auto) Cancelled Neut % (Auto) Cancelled Lymph % (Auto) Cancelled [place] % (Auto) Cancelled Eos % (Auto) Cancelled Baso % (Auto) Cancelled Lymph # (Auto) Cancelled [place] # (Auto) Cancelled Eos # (Auto) Cancelled Baso # (Auto) Cancelled Abs Immat Gran (auto) Cancelled Absolute Neuts (auto) Cancelled Absolute Nucleated RBC 0.000 Nucleated RBC % (auto) 0.0 Neutrophils % (Manual) 70 Band Neutrophils % 23 H Lymphocytes % (Manual) 2 L Monocytes % (Manual) 5 Abs Neuts (Manual) 14.4 H Lymphocytes # (Manual) 0.3 L Monocytes # (Manual) 0.8 Toxic Vacuolation PRESENT Platelet Estimate NORMAL Plt Morphology Comment NORMAL RBC Morphology NOTED [place] Cells 1+ (0-2) Schistocytes 1+ (0-2) VBG pH 7.40 VBG pCO2 54 VBG pO2 33 VBG HCO3 34 H VBG O2 Saturation 44.0 VBG Base Excess 7.6 Anion Gap 14 Estim Creat Clear Calc 78.1 Estimated GFR > 60 Random Glucose 131 H Lactic Acid 1.3 Calcium 9.4 Magnesium 1.9 Total Bilirubin 0.9 AST 31 ALT 36 Alkaline Phosphatase 107 Troponin I High Sens 3.7 Total Protein 7.0 Albumin 3.5 Urine Color Urine Appearance Urine pH Ur Specific [place] Urine Protein Urine Glucose (UA) Urine Ketones Urine Blood Urine Nitrite Ur Leukocyte Esterase Urine RBC Urine WBC Ur Squamous Epith Cells Urine Bacteria Hyaline Casts Influenza Type A (PCR) NEGATIVE Influenza Type B (PCR) NEGATIVE RSV RNA Qual (PCR) NEGATIVE SARS-CoV-2 RNA (RT-PCR) NEGATIVE 06/01/24 06/02/24 18:37 05:15 MCV 87.6 MCH 28.9 MCHC 33.0 RDW 15.5 Plt Count 199 MPV 10.3 Immature Gran % (Auto) Neut % (Auto) Lymph % (Auto) [place] % (Auto) Eos % (Auto) Baso % (Auto) Lymph # (Auto) [place] # (Auto) Eos # (Auto) Baso # (Auto) Abs Immat Gran (auto) Absolute Neuts (auto) Absolute Nucleated RBC 0.000 Nucleated RBC % (auto) 0.0 Neutrophils % (Manual) Band Neutrophils % Lymphocytes % (Manual) Monocytes % (Manual) Abs Neuts (Manual) Lymphocytes # (Manual) Monocytes # (Manual) Toxic Vacuolation Platelet Estimate Plt Morphology Comment RBC Morphology [place] Cells Schistocytes VBG pH VBG pCO2 VBG pO2 VBG HCO3 VBG O2 Saturation VBG Base Excess Anion Gap 11 L Estim Creat Clear Calc 88.2 Estimated GFR > 60 Random Glucose 112 Lactic Acid Calcium 8.3 L D Magnesium Total Bilirubin AST ALT Alkaline Phosphatase Troponin I High Sens Total Protein Albumin Urine Color Dark Yellow Urine Appearance Clear Urine pH 5.5 Ur Specific [place] >= 1.030 H Urine Protein 100 (2+) H Urine Glucose (UA) Negative Urine Ketones Negative Urine Blood Negative Urine Nitrite Negative Ur Leukocyte Esterase Negative Urine RBC 0-2 Urine WBC 0-5 Ur Squamous Epith Cells 3-5 Urine Bacteria None Seen Hyaline Casts 6-10 Influenza Type A (PCR) Influenza Type B (PCR) RSV RNA Qual (PCR) SARS-CoV-2 RNA (RT-PCR) Assessment and Plan (1) Pulmonary nodules: Status: Acute (2) COPD (chronic obstructive pulmonary disease): Status: Acute (3) Sepsis: Status: Acute (4) Pneumonia: Status: Acute Plan 67-year-old gentleman with past medical history significant for COPD, hypertension not on home O2 resident of [facility] sent to [facility] ED due to hypoxia, patient noted to be tachypneic tachycardic with leukocytosis CTA chest pending but likely has right sided pneumonia with sepsis therefore admit to hospital for iv antibiotic and close clinical monitoring. Sepsis due to right lower lobe community-acquired pneumonia WBC trending down, tachypnea resolved, mild tachycardia , normal lactic acid CTA chest showed no PE, showed bibasilar dependent consolidation right > left, multiple by lateral spiculated nodules, abdominal aortic aneurysm measures 5.3 cm and severe centrilobular and paraseptal emphysema Continue IV ceftriaxone and IV azithromycin blood cultures, strep pna urine antigen, Legionella antigen pending Continue Cough medication, supportive care stable oxygenation, follow closely Obtained Pulmonary consult for pulmonary nodules,, since patient being followed by pulmonology at [facility] Dr. Soria recommend outpatient serial CT chest at [facility] pulmonary clinic Mild acute hyponatremia likely due to dehydration , status post IV fluids, sodium improved to 133 no further workup warranted. Hypertension soft blood pressure hold antihypertensives follow BP. COPD no acute exacerbation , continue as needed updraft treatment hold IV steroids follow clinical course BMI 17.8 [id number] malnutrition recommend supplement. Tobacco use disorder, smokes 1-3 cigarettes a day counseling done. Incidental finding of 5.4 cm abdominal aortic aneurysm being followed by primary care physician will obtain vascular surgery consultation DVT prophylaxis with Lovenox Full code In my clinical judgment patient need continued inpatient hospitalization for management of sepsis due to community-acquired pneumonia, requiring IV antibiotic, expert consultation and close clinical follow-up. Quality Stroke Does the patient have a stroke diagnosis?: No VTE Prior VTE?: No VTE Risk Level:: Medical - moderate - high VTE Device Contraindication: Treatment Not Indicated VTE Drug Contraindication: N/A - Med Ordered
--- NOTE | 2024-06-02 12:31 | P.CONGS_ITS ---
<Statement entered by Efrain Phillip MD - 06/02/24 13:28> I have seen and evaluated the patient and agree with history, findings, assessment and plan documented by Jyoti Moran PA-c. History of Present Illness Consult details Consult date: 06/02/24 <Jyoti Moran PA-C - Last Filed: 06/02/24 13:01> Narrative: We were consulted for Lacho, a pleasant 68 yo male patient, who is admitted for COPD/pneumonia. An appx 5.3cm AAA was found on Chest CTA. He currently remains asymptomatic with no complaints of abd or back pain. He states he is feeling much better than when he presented here on 06/01. He is not currently on O2. He states he has never been screened for an AAA before. He is a current everyday smoker, appx 1-3 cigs/day; he states he used to smoke >1ppd, since his teens. He is not a diabetic. <Jyoti Moran PA-C - Last Filed: 06/02/24 13:01> Review of Systems 2 Constitutional: Constitutional: Reports as per HPI and Denies weakness < Jyoti Moran PA-C - Last Filed: 06/02/24 13:01> ENT: Reports Normal hearing present and Denies dizziness <Jyoti Moran PA-C - Last Filed: 06/02/24 13:01> Cardiovascular: Cardiovascular: Reports as per HPI, Denies chest pain, Denies chest pain at rest, Denies chest pain with activity, Denies dyspnea and Denies dyspnea on exertion <Jyoti Moran PA-C - Last Filed: 06/02/24 13:01> Respiratory: Respiratory: Reports as per HPI, Denies cough, Denies dyspnea and Denies dyspnea on exertion <Jyoti Moran PA-C - Last Filed: 06/02/24 13:01> Gastrointestinal: Gastrointestinal: Reports as per HPI, Denies abdominal pain, Denies nausea and Denies vomiting <Jyoti Moran PA-C - Last Filed: 06/02/24 13:01> Musculoskeletal: Musculoskeletal: Denies numbness <Jyoti Moran PA-C - Last Filed: 06/02/24 13:01> Integumentary/Breasts: Skin/Breast: Reports as per HPI, Denies erythema and Denies wounds <Jyoti Moran PA-C - Last Filed: 06/02/24 13:01> Neurologic: Reports Normal hearing present, Denies dizziness, Denies numbness, Denies Sensory deficit (Neuro) and Denies weakness <Jyoti Moran PA-C - Last Filed: 06/02/24 13:01> Psychiatric: Psychiatric: Reports no additional psychiatric complaints < Jyoti Moran PA-C - Last Filed: 06/02/24 13:01> Endocrine: Endocrine: Reports no additional endocrine complaints <Jyoti Moran PA-C - Last Filed: 06/02/24 13:01> [facility] Past Medical History Medical History: Medical History (Updated 06/02/24 @ 12:46 by Jyoti Moran PA-C) COPD (chronic obstructive pulmonary disease) Pulmonary nodules HTN (hypertension) <Jyoti Moran PA-C - Last Filed: 06/02/24 13:01> Social History Social History: Social History Household Members: Other Household Members Other:: Parisa Pagan Home Housing: Other Housing Other:: independent living Do you presently have visiting nurse or other home services: Yes ([facility] at facility) Alcohol intake: former Patient Tobacco Use Status: Current everyday Tobacco user Tobacco use type: Cigarette Cigarettes Per Day: 3 Smoked in Last 30 Days: Yes Patient Interested in Nicotine Replacement: No Patient Given Instructions on How to Stop Smoking: Yes Date Education Initiated: 06/01/24 Second Hand Smoke Exposure: No Use of substances other than those prescribed or required for medical reasons: No Currently Displaying Signs/Symptoms of Drug Intoxication Withdrawal: No Have you been hit, kicked, punched, or otherwise hurt by someone within the past year? If so, by whom?: No Do you feel safe in your current relationship?: Yes Is there a partner from a previous relationship who is making you feel unsafe now?: No Are you made to feel afraid or neglected: No Advance Directives: No Advance Directives Information Provided: No Do you have a plan to hurt others: No Plan Recently lost weight without trying: Yes How much weight loss: 14-23 pounds Eating poorly because of decreased appetite: Yes Nutrition screen score: 5 Nutrition Risks: No Nutritional Risk Poor oral hygiene: No service: No <Jyoti Moran PA-C - Last Filed: 06/02/24 13:01> Meds Allergies/Adverse reactions: Allergies Allergy/AdvReac Type Severity Reaction Status Date / Time No Known Allergies Allergy Verified 06/01/24 11:56 <Jyoti Moran PA-C - Last Filed: 06/02/24 13:01> Active Medications: Current Medications Acetaminophen (Acetaminophen 325 Mg Tablet) 650 mg PO Q6H PRN PRN Reason: Pain, Mild (Pain Scale 1-3), fever or headache Albuterol/Ipratropium (Albuterol/Iprat 2.5/0.5mg 3 Ml Ampul.Neb) 3 ml INHALE RQ4H WHILE AWAKE PRN PRN Reason: sob Aspirin (Aspirin Enteric Coated 81 Mg Tablet.Dr) 81 mg PO DAILY [facility] Last Admin: 06/02/24 08:53 Dose: 81 mg Atorvastatin Calcium (Atorvastatin Calcium 40 Mg Tablet) 40 mg PO BEDTIME [facility] Calcium Carbonate (Calcium Carbonate 750 Mg Tab.Chew) 750 mg PO Q4H PRN PRN Reason: Heartburn Ceftriaxone Sodium (Ceftriaxone Sodium 1 Gm Vial) 1 gm IVPUSH Q24H [facility] Enoxaparin Sodium (Enoxaparin Sodium 40 Mg/0.4 Ml Syringe) 40 mg SUBCUT Q24H [facility] Last Admin: 06/01/24 16:14 Dose: Not Given Fluticasone/Umeclidinium/Vilanterol (Fluticasone/Umeclidinium/Vilanterol 200/62.5/25 Blst.W.Dev) 1 puff INHALE RDAILY [facility] Guaifenesin/Dextromethorphan (Guaifenesin Dm 200/20/10 Ml 10 Ml Syrup) 10 ml PO Q6H PRN PRN Reason: Cough Azithromycin 500 mg/ Sodium (Chloride) 250 mls @ 125 mls/hr IV Q24H [facility] Last Infusion: 06/01/24 18:06 Dose: Infused Magnesium Hydroxide (Milk Of Magnesia 30 Ml Oral.Susp) 30 ml PO DAILY PRN PRN Reason: Constipation Melatonin (Melatonin 3 Mg Tablet) 6 mg PO BEDTIME PRN PRN Reason: Insomnia Ondansetron HCl (Ondansetron Hcl 4 Mg/2 Ml Vial) 4 mg IVPUSH Q8H PRN PRN Reason: Nausea and Vomiting Polyethylene Glycol (Polyethylene Glycol 3350 17 Gm Powd.Pack) 17 gm PO DAILY PRN PRN Reason: Constipation Sodium Chloride (0.9 % Sodium Chloride Flush 3 Ml Syringe) [facility] Last Admin: 06/02/24 08:53 Dose: 3 ml <Jyoti Moran PA-C - Last Filed: 06/02/24 13:01> Home medications: Home Medications ?Medication ?Instructions ?Recorded ?Confirmed ?Last Taken ?Type albuterol sulfate 90 mcg/actuation 1 - 2 puff inhalation Q4H PRN 01/28/23 06/01/24 Unknown History aerosol inhaler Wheezing acetaminophen 325 mg tablet 650 mg PO Q4H PRN pain or fever 06/01/24 06/01/24 Unknown History aluminum-mag hydroxide-simethicone 10 ml PO DAILY PRN Constipation 06/01/24 06/01/24 Unknown History 200 mg-200 mg-20 mg/5 mL oral susp aspirin 81 mg tablet,delayed 81 mg PO DAILY 06/01/24 06/01/24 Unknown History release atorvastatin 40 mg tablet 40 mg PO DAILY 06/01/24 06/01/24 Unknown History fluticasone fur. 200 mcg-umeclid 1 ea inhalation DAILY 06/01/24 06/01/24 Unknown History 62.5 mcg-vilant 25 mcg inhalat.powder (Trelegy Ellipta) lisinopril 5 mg tablet 5 mg PO DAILY 06/01/24 06/01/24 Unknown History magnesium hydroxide 400 mg/5 mL 30 ml PO DAILY PRN Constipation 06/01/24 06/01/24 Unknown History oral suspension (Milk of Magnesia) <Jyoti Moran PA-C - Last Filed: 06/02/24 13:01> Physical Exam 2 Vital Signs: Vital Signs: Last Vital Signs Temp 97.1 F 06/02/24 07:37 Pulse 102 H 06/02/24 07:37 Resp 16 06/02/24 07:37 BP 113/70 06/02/24 07:37 Pulse Ox 94 06/02/24 07:37 O2 Del Method Room Air 06/02/24 07:37 BMI result Body Mass Index 17.0 <Jyoti Lottas, PA-C Korina Last Filed: 06/02/24 13:01> Const: General: no acute distress, alert, awake and Physically active < Jyoti Shaver TOÑO Moran Korina Last Filed: 06/02/24 13:01> Orientation/consciousness: patient oriented x3 <Jyoti Shaver BE MoranIssac Last Filed: 06/02/24 13:01> HEENT: Head: Yes normal to inspection <Jyoti Shaver TOÑO Moran - Last Filed: 06/02/24 13:01> Ears: hearing grossly normal bilaterally <Jyoti Shaver BE MoranIssac Hui Last Filed: 06/02/24 13:01> Resp: Other: Pt is no acute distress. <Jyoti Shaver TOÑO Moran Last Filed: 06/02/24 13:01> Effort & Inspection: normal respiratory effort and able to speak in complete sentences <Jyoti Shaver BE MoranIssac Last Filed: 06/02/24 13:01> Cardio: Rate: regular rate <Jyoti Shaver BE MoranIssac Last Filed: 06/02/24 13:01> Rhythm: regular rhythm <Jyoti Shaver BE MoranIssac Last Filed: 06/02/24 13:01> Bruits: no abdominal aortic bruits, no carotid bruits, no femoral bruits and no renal bruits <Jyoti Shaver BE MoranIssac Last Filed: 06/02/24 13:01> Peripheral pulses: Peripheral pulses 2+ throughout <Jyoti Shaver TOÑO Moran Last Filed: 06/02/24 13:01> GI: Palpation (GI): No Abdominal aortic bruit present <Jyoti Shaver TOÑO Moran Last Filed: 06/02/24 13:01> Skin: Other: Strong and palpable DP and PT pulses. <Jyoti Sivakumar TOÑO Moran Last Filed: 06/02/24 13:01> General skin exam: no rashes or lesions noted <Jyoti Sivakumar TOÑO Moran Last Filed: 06/02/24 13:01> Trauma: no lacerations or abrasions <Jyoti Moran PA-C Last Filed: 06/02/24 13:01> Wounds: no wounds <Jyoti MoranBEIssac Hui Last Filed: 06/02/24 13:01> Neuro: General: patient oriented x3 <Jyoti MoranBEIssac Hui Last Filed: 06/02/24 13:01> Cranial nerves: Yes Normal hearing present <Jyoti MoranNAZMike Hui Last Filed: 06/02/24 13:01> Sensory Exam: No Sensory deficit (Neuro) <Jyoti MoranNAZMike Hui Last Filed: 06/02/24 13:01> Extrem: General: Yes normal to inspection, Yes full ROM and Yes capillary refill normal <Jyoti MoranNAZMike Hui Last Filed: 06/02/24 13:01> Psych: Mental Status: mental status grossly normal <Jyoti MoranNAZMike Hui Last Filed: 06/02/24 13:01> Speech and movement: Normal speech and movement present <Jyoti LottNAZ gipsonMike Hui Last Filed: 06/02/24 13:01> Attitude: cooperative <Jyoti MoranNAZMike Hui Last Filed: 06/02/24 13:01> Thought process: Normal thought process present <Jyoti LottNAZ gipsonMike Hui Last Filed: 06/02/24 13:01> Results Labs Result diagrams: 06/02/24 05:15 06/02/24 05:15 <Jyoti MoranNAZMike Hui Last Filed: 06/02/24 13:01> Labs: Abnormal lab results 06/01/24 06/01/24 06/01/24 Range/Units 12:05 12:59 18:37 WBC 15.5 H (4.8-10.8) X10*3/uL RBC 4.25 L (4.60-5.80) X10*6/uL Hgb 12.2 L (14.0-18.0) g/dl Hct 37.0 L (42.0-52.0) % Band Neutrophils % 23 H (3-5) % Lymphocytes % (Manual) 2 L (20-40) % Abs Neuts (Manual) 14.4 H (2.0-8.3) X10*3/uL Lymphocytes # (Manual) 0.3 L (1.2-4.9) X10*3/uL VBG HCO3 34 H (22-26) mmol/L Sodium 131 L (135-145) mmol/L Chloride 95 L (96-108) mmol/L Anion Gap (12-20) Random Glucose 131 H (60-115) mg/dL Calcium (8.4-10.2) mg/dL Ur Specific [place] >= 1.030 H (1.005-1.025) Urine Protein 100 (2+) H (Neg-Trace) mg/dL 06/02/24 Range/Units 05:15 WBC 11.2 H (4.8-10.8) X10*3/uL RBC 3.80 L (4.60-5.80) X10*6/uL Hgb 11.0 L (14.0-18.0) g/dl Hct 33.3 L (42.0-52.0) % Band Neutrophils % (3-5) % Lymphocytes % (Manual) (20-40) % Abs Neuts (Manual) (2.0-8.3) X10*3/uL Lymphocytes # (Manual) (1.2-4.9) X10*3/uL VBG HCO3 (22-26) mmol/L Sodium 133 L (135-145) mmol/L Chloride (96-108) mmol/L Anion Gap 11 L (12-20) Random Glucose (60-115) mg/dL Calcium 8.3 L D (8.4-10.2) mg/dL Ur Specific [place] (1.005-1.025) Urine Protein (Neg-Trace) mg/dL Short CBC 06/01/24 06/02/24 Range/Units 12:05 05:15 WBC 15.5 H 11.2 H (4.8-10.8) X10*3/uL Hgb 12.2 L 11.0 L (14.0-18.0) g/dl Hct 37.0 L 33.3 L (42.0-52.0) % Plt Count 194 199 (160-400) X10*3/uL BMP 06/01/24 06/02/24 12:05 05:15 Sodium 131 L 133 L Potassium 3.8 3.8 Chloride 95 L 100 Carbon Dioxide 26 26 BUN 16 12 Creatinine 0.71 0.60 Calcium 9.4 8.3 L D Liver Function 06/01/24 Range/Units 12:05 Total Bilirubin 0.9 (0.0-1.0) mg/dL AST 31 (5-37) U/L ALT 36 (0-40) U/L Alkaline Phosphatase 107 (39-117) U/L Albumin 3.5 (3.5-5.0) g/dL Urine 06/01/24 Range/Units 18:37 Urine Color Dark Yellow Urine Appearance Clear Urine pH 5.5 (5.0-9.0) Ur Specific [place] >= 1.030 H (1.005-1.025) Urine Protein 100 (2+) H (Neg-Trace) mg/dL Urine Glucose (UA) Negative (Negative) mg/dL All other labs normal. <Jyoti Moran PA-C - Last Filed: 06/02/24 13:01> Assessment and Plan (1) AAA (abdominal aortic aneurysm): Qualifiers: Abdominal aorta location: unspecified Presence of rupture: without rupture Qualified Code(s): I71.40 - Abdominal aortic aneurysm, without rupture, unspecified <Jyoti Moran PA-C - Last Filed: 06/02/24 13:01> Status: Acute <Jyoti Moran PA-C - Last Filed: 06/02/24 13:01> We were consulted today for Lacho, a pleasant 68yo male patient, for an incidental finding of AAA on chest CTA. He remains asymptomatic. He has not had any AAA screenings before; he also states there is no known hx of AAA in his family/sudden deaths. He is a >50y smoker, continues to smoke 1-3 cigs/day. He is currently on ASA and a Statin. Per the chest CTA, they are measuring an AAA at 5.3cm; however, when we looked at it in the AP, we measured 4.4cm. We have ordered a CTA of the abd/pelvis for a better view/measurement of the AAA. We reviewed the labwork and the pt's GFR, >60. We will have him continue on the ASA and statin, we do recommend a high dose statin. Likely we will just follow the Lacho outpatient; however, he appears to be a good candidate for an EVAR if the AAA is measuring in the 5cm range. <Jyoti Moran PA-C - Last Filed: 06/02/24 13:01> We were consulted today for Lacho, a pleasant 68yo male patient, for an incidental finding of AAA on chest CTA. He remains asymptomatic. He has not had any AAA screenings before; he also states there is no known hx of AAA in his family/sudden deaths. He is a >50y smoker, continues to smoke 1-3 cigs/day. He is currently on ASA and a Statin. Per the chest CTA, they are measuring an AAA at 5.3cm. We have ordered a CTA of the abd/pelvis for a better view/measurement of the AAA. We reviewed the labwork and the pt's GFR, >60. We will have him continue on the ASA and statin, we do recommend a high dose statin. We will review CTA upon completion to a elucidate the true size. Will have further recommendations after reviewing imaging. <Efrain Phillip MD - Last Filed: 06/02/24 13:30> Procedures Date of Service Date of Service: 06/02/24 <Jyoti Moran PA-C - Last Filed: 06/02/24 13:01> 06/02/24 <Efrain Phillip MD - Last Filed: 06/02/24 13:30>
--- NOTE | 2024-06-02 12:41 | MHC.CM.PN ---
PT A RESIDENT OF [facility] WHERE HE WILL RETURN WHEN DCD
[2024-06-02] MEDS: cefTRIAXone sodium 1 GM VIAL IVPUSH (13:09)
[2024-06-02 13:46] VITALS: BMI 17.0
--- NOTE | 2024-06-02 13:56 | MHC.CLN ---
NUTRITION DIET=REGULAR. ENSURE TID TO PROVIDE 1050 KCALS, 60 G PROTEIN. LIVES IN REST HOME THAT PROVIDES 3 MEALS DAILY. ATE WELL AT BREAKFAST TODAY. ATE ABOUT 25% OF LUNCH MEAL. QUALIFIES MODERATELY MALNOURISHED IN THE CONTEXT OF CHRONIC ILLNESS. BMI=17 WITH MILD DEPLETION OF BODY FAT AND MUSCLE MASS. CONTINUE REGULAR DIET WITH SUPPLEMENT. SEE CLINICAL NUTRITION ASSESSMENT 06/02/24.
--- NOTE | 2024-06-02 14:11 | P.CDIM_ITS ---
PROVIDER RESPONSE TEXT: To clarify, the appropriate diagnosis supported by the clinical indicators: Moderate protein calorie malnutrition QUERY TEXT: PHYSICIAN'S DOCUMENTATION REQUEST Date of Query: 06/02/2024 12:13 PM EDT Patient Name: Lacho Whaley Admit Date: 06/01/2024 Dear Rachel Ramos MD, A review of the medical record indicates additional documentation may be needed. Please review below and update the documentation accordingly. Documentation includes the diagnosis of malnutrition. Additional clinical indicators from the record include: Per Hospitalist Progress Note 06/02/24: BMI 17.8 plyp-ge-wbuuegim malnutrition recommend supplement Per Nutritional Risk Tctfmenhpg20/28/24: po intake < 50% x5 days BMI < 19.0 If possible, please provide additional specificity regarding the severity of the malnutrition using t he above information: Mild protein calorie malnutrition Moderate protein calorie malnutrition Other (explain) Clinically unable to determine (explain) Thank you, Mariam Bhat RN Use of terms such as suspected, likely, concern for, or probable (associated with a specific diagnosi s that is being evaluated, monitored, or treated as if it exists) are acceptable and can be coded in the inpatient se tting, when documented at the time of discharge. Please use your independent medical judgment in providing your response. THIS QUERY IS PART OF THE PERMANENT MEDICAL RECORD
[2024-06-02 15:08] VITALS: BP 147/94; PULSE 100; RESP 18; TEMP 36.7; O2SAT 95
[2024-06-02] MEDS: Azithromycin 500 MG in 0.9 % Sodium Chloride 250 ML 125 MG IV (15:55)
[2024-06-02] MEDS: lisinopriL 5 MG TABLET PO (15:55)
[2024-06-02] MEDS: iohexoL 350 MG/ML 100 ML INFUS..BTL 80 ML IV (16:26)
[2024-06-02 19:27] VITALS: BP 122/86; PULSE 109; RESP 18; TEMP 36.6; O2SAT 94
[2024-06-02] MEDS: Atorvastatin Calcium 40 MG TABLET PO (20:09)
[2024-06-02] MEDS: Fluticasone/Umeclidinium/Vilanterol 200/62.5/25 BLST.W.DEV 1 PUFF INHALE (23:28)
[2024-06-02 23:29] VITALS: PULSE 100; RESP 16; O2SAT 94
[2024-06-03 03:44] VITALS: BP 112/77; PULSE 92; RESP 16; TEMP 36.1; O2SAT 95
--- NOTE | 2024-06-03 07:00 | CA_ITS ---
Transthoracic Echocardiogram Patient (Last, First, Middle): Lacho Whaley, Gender: Male Date of : 1955 Age: 68 Procedure Date: 06/03/2024 Procedure Type: Transthoracic Echocardiogram Location: S3E Height: 177.8 cm Weight: 53.52 kg BSA: 1.67 m2 Heart Rate: 105 bpm BP: 131 / 83 mmHg Mica Paster: SB Referring MD: Jyoti Moran PA-C Symptoms: shortness of breath Study Quality: Technically Difficult due to narrow rib spaces ECG Rhythm: Tachycardia Conclusions: - The left ventricular systolic function is normal. The visually estimated ejection fraction is between 65-70%. - No obvious valvular pathology seen on this study. - Mild pulmonary hypertension is present. Findings Procedure Information Contrast agent, definity, is being given per protocol without apparent complications. Left Ventricle Normal left ventricular cavity size. There is normal left ventricular wall thickness. The left ventricular systolic function is normal. The visually estimated ejection fraction is between 65-70%. There is no evidence of regional wall motion abnormalities. Diastolic function is normal for age. Right Ventricle Normal right ventricular cavity size and systolic function. Atria Both atria are normal in size. Aortic Valve There is a normal trileaflet aortic valve. There is mild calcification of the aortic valve. There is no aortic valve stenosis. There is no aortic valve regurgitation. Mitral Valve The mitral valve appears normal. There is no mitral valve regurgitation. There is no mitral valve stenosis. Pulmonic Valve The pulmonic valve is likely normal. Tricuspid Valve There is mild tricuspid valve regurgitation. Mild pulmonary hypertension is present. Great Vessels The asc aorta is normal in size. Venous The inferior vena cava is normal in size and collapses greater than 50% with inspiration. Pericardium/Pleural There is no evidence of pericardial effusion. Prior Study Comparison No prior study available for comparison. Recommendations, Care & Conclusions No obvious valvular pathology seen on this study. Measurements 2D Linear Measurements IVSd: 0.77 0.6-0.9/0.6-1.0 cm LVIDd: 3.23 3.9-5.3/4.2-5.9 cm LVIDd Index: 1.93 2.4-3.2/2.2-3.1 cm/m2 LVIDs: 2.51 2.0-3.6 cm LVPWd: 0.90 0.7-1.1 cm LV Mass: 87.46 67-162/88-224 g LV Mass Index: 52.37 43-95/49-115 g/m2 LVOT Diam: 2.30 3.0+(-)1.3 cm 2D Systolic Function EF 4C: 76.40 >55% Mitral Valve MV Pk E: 0.71 MV PK A: 0.80 MV Decel Time: 107.00 E/A: 0.90 E'Medial: 9.36 E/E' Med: 7.60 PHT: 31.00 MVA PHT: 7.10 Decel [place]: 6.59 Aortic Valve AoV Pk Victor Manuel: 1.01 AoV Pk Grad: 4.00 MARÍA ELENA: 3.14 LVOT LVOT Pk Victor Manuel: 0.87 LVOT Mn Victor Manuel: 0.56 LVOT VTI: 0.12 LVOT Pk Grad: 3.00 LVOT Mn Grad: 2.00 LVOT Diam: 2.30 LVOT Area: 4.15 Diastolic Function MV Pk E: 0.71 MV Pk A: 0.80 E/A: 0.90 E'Medial: 9.36 E/E' Med: 7.60 Right Ventricle TAPSE (mm): 15.20 TVS' Victor Manuel: 11.00 Tricuspid Valve TR Pk Victor Manuel: 3.46 TR Pk Grad: 48.00 RA Press: 3.00 RVSP: 51.00 Great Vessels Aorta Sinus of Valsalva: 3.40 2.0-3.5 cm Ao Asc: 3.70 2.1-3.4 cm Updated in Other Vendor System with Status of Final Giancarlo Bradley MD electronically signed on 06/04/2024 10:16:46 AM with status of Final
[2024-06-03 07:29] VITALS: BP 131/83; PULSE 89; RESP 16; TEMP 36.3; O2SAT 90
[2024-06-03] MEDS: lisinopriL 5 MG TABLET PO (07:59)
[2024-06-03] MEDS: 0.9 % Sodium Chloride Flush 3 ML SYRINGE IVFLUSH ×3 (07:59→23:30)
[2024-06-03] MEDS: Aspirin Enteric Coated 81 MG TABLET.DR PO (07:59)
--- NOTE | 2024-06-03 08:31 | HO.VASCPN ---
Subjective Subjective Date of Service: 06/03/24 Interval history: Lacho is doing well this morning. He has no concerns. He has been eating well, sleeping well, and drinking well. He denies any complaints of shortness of breath or difficulty breathing this morning. He tolerated the CTA of the abdomen and pelvis yesterday well. He continues to deny any back or abdominal pain. Physical Exam Vital Signs: Vital Signs: Last Vital Signs Temp 97.4 F 06/03/24 07:29 Pulse 89 06/03/24 07:29 Resp 16 06/03/24 07:29 BP 131/83 06/03/24 07:29 Pulse Ox 90 L 06/03/24 07:29 O2 Del Method Room Air 06/03/24 07:29 BMI result Body Mass Index 17.0 Const: General: comfortable and no acute distress Orientation/consciousness: patient oriented x3 HEENT: Ears: hearing grossly normal bilaterally Resp: Effort & Inspection: normal respiratory effort and able to speak in complete sentences Auscultation: clear to auscultation bilaterally Cardio: Rate: regular rate Rhythm: regular rhythm Heart sounds: S1 normal heart sound present and S2 normal heart sound present Bruits: no abdominal aortic bruits, no carotid bruits, no femoral bruits and no renal bruits GI: Palpation (GI): No Abdominal aortic bruit present Neuro: General: patient oriented x3 Cranial nerves: Yes CN's II-XII intact bilaterally Progress Note: A&P Assessment and plan (1) AAA (abdominal aortic aneurysm): Status: Acute Assessment and Plan: There was an incidental finding of a possible 5.3 cm AAA on a chest CTA done this past Sunday. The patient had a CTA of the abdomen and pelvis last night. We will wait for the official read. We will continue him on daily aspirin and statin, we recommend a higher dose statin. We have also ordered a transthoracic echo outpatient. We will follow up when the CTA is read. We will continue to monitor. If you have any questions or comments, please do not hesitate to reach out. Time Spent With Patient Time: Total time managing care of this patient today __30__ minutes. Procedures Date of Service Date of Service: 06/03/24 Quality Stroke Does the patient have a stroke diagnosis?: No VTE Prior VTE?: No VTE Risk Level:: Medical - moderate - high VTE Device Contraindication: Treatment Not Indicated VTE Drug Contraindication: N/A - Med Ordered
--- NOTE | 2024-06-03 11:19 | PM.DS ---
DS: Providers Provider Date of Service: 06/04/24 Date of admission: 06/01/24 14:56 Date of discharge: 06/04/24 Primary care physician: Unknown Physician Consults: 06/02/24 08:06 Consult to Pulmonology Routine Consulting Provider: [facility] Pulmonology Services Reason for consultation: multiple nodules Has provider been notified: No 06/02/24 11:45 Consult to Vascular Surgery Routine Consulting Provider: [facility] Vascular Services Reason for consultation: abd aortic aneurysm Has provider been notified: No DS: Diagnosis Discharge Diagnosis (1) AAA (abdominal aortic aneurysm): Status: Acute DS: Summary Hospital Course Hospital Course: History of presenting illness: Date of Service: 06/01/24 Chief Complaint: Hypoxia 68-year-old gentleman resident of [facility] with past medical history significant for hypertension, COPD not on home oxygen, was sent to [place] ED since he was noted to have hypoxia finger oximetry 88% on room air,As per patient since last few days he feels tired, fatigued, had chills and sweating, no fevers, associated with worsening baseline cough, productive of clear phlegm, and has been noticing persistent decreased energy today he was noted to be hypoxic, he denies associated symptoms of nausea vomiting, abdominal pain, diarrhea, no urinary symptoms of urgency frequency, in emergency room workup showed elevated WBC 15.5 blood sugar 131 stable electrolytes and renal function EKG showed mild tachycardia no acute ischemic changes, on examination patient noted to have tachycardia, tachypnea oxygenation stable 94% on room air, CTA chest obtained report is pending ,seems to have right lower lobe pneumonia, COVID, influenza and RSV negative patient received 1 dose of IV ceftriaxone, lactic acid and blood cultures sent patient will be admitted to hospital with a diagnosis of sepsis due to community-acquired pneumonia. Hospital course: 67-year-old gentleman with past medical history significant for COPD, hypertension not on home O2 resident of [facility] sent to [place] ED due to hypoxia, patient noted to be tachypneic, tachycardic with leukocytosis CTA chest showed bibasilar consolidation right greater than left, patient admitted to [facility] with a diagnosis of Sepsis due to right lower lobe community-acquired pneumonia, and treated with IV ceftriaxone, azithromycin cough medication, patient noted to have stable oxygenation, he responded well to above treatment WBC trended down tachypnea tachycardia resolved had normal lactic acid, blood culture showed no growth, strep pna urine antigen, and Legionella antigen pending since patient hemodynamically stable he is being discharged home on by mouth antibiotics for total 8 days of treatment recommend to continue cough medication as needed, CTA chest also showed multiple bilateral spiculated nodules and abdominal aortic aneurysm measures 5.3 cm and severe centrilobular and paraseptal emphysema, in regard to spiculated nodules patient seen by gold letterer Dr. Soria he recommend continued outpatient follow-up by [facility] pulmonology where he is being followed closely for above-mentioned nodules. Mild acute hyponatremia likely due to dehydration , status post IV fluids, sodium improved to 133 no further workup Hypertension continue lisinopril. COPD no acute exacerbation , continue home inhalers BMI 17.8 moderate protein calorie malnutrition recommend supplement. Tobacco use disorder, smokes 1-3 cigarettes a day counseling done. Incidental finding of 5.4 cm abdominal aortic aneurysm seen by Dr. Phillip he recommended abdominal and pelvic CTA , that showed infrarenal eccentrically thrombosed fusiform aortic aneurysm, vascular surgery also recommended transthoracic echocardiogram, that is obtained, report pending that will be followed by Dr. Phillip continue aspirin and statin. Time Attestation Discharge Coordination Time (in mins): 38 Quality: Safe Use of Opioids Does Pt have an Active Cancer Diagnosis on the Problem List?: No Quality: Stroke Does the patient have a stroke diagnosis?: No Physical Exam Vital Signs: Vital Signs: Last Vital Signs Temp 97.4 F 06/03/24 07:29 Pulse 89 06/03/24 07:29 Resp 16 06/03/24 07:29 BP 131/83 06/03/24 07:29 Pulse Ox 90 L 06/03/24 07:29 O2 Del Method Room Air 06/03/24 07:29 BMI result Body Mass Index 17.0 Const: Other: General awake alert x3, resting comfortably in no acute distress. Anicteric sclera Neck supple no JVD. CVS regular rate rhythm, Respiratory lungs diminished, no respiratory distress, no crackles, no wheeze, no rhonchi. Gastrointestinal abdomen soft, non tender, bowel sounds audible Extremities no edema. Neuro non focal Skin no rash Psych appropriate affect DS: Data Data Completed and Pending Labs on day of discharge: Preliminary micro results at discharge 06/01/24 15:38 Blood Culture - Preliminary Blood - Venous No growth after 24 hours. 06/01/24 15:38 Blood Culture - Preliminary Blood - Venous No growth after 24 hours. Discharge Plan Discharge Anticipated Discharge Date/Time: 06/04/24 10:21 Patient Disposition: Home, Self-Care Discharge Diagnosis: Sepsis due to pneumonia Referrals: Physician,Unknown J [Primary Care Provider] - 1 Week Discharge Medications: New dextromethorphan-guaifenesin 10-100 mg/5 mL Syrup 10 ml PO Q6H PRN (Reason: Cough) Qty: 237 0RF cefuroxime axetil 500 mg Tablet 500 mg PO BID Qty: 6 0RF Continued atorvastatin 40 mg tablet 40 mg PO DAILY acetaminophen 325 mg Tablet 650 mg PO Q4H PRN (Reason: pain or fever) aspirin 81 mg tablet,delayed release (DR/EC) 81 mg PO DAILY magnesium hydroxide [Milk of Magnesia] 400 mg/5 mL Suspension 30 ml PO DAILY PRN (Reason: Constipation) lisinopril 5 mg tablet 5 mg PO DAILY alum-mag hydroxide-simeth 200-200-20 mg/5 mL Suspension 10 ml PO DAILY PRN (Reason: Constipation) Rx Instructions: administer between meals and at bedtime Trelegy Ellipta 200-62.5-25 mcg blister with device 1 ea inhalation DAILY albuterol sulfate 90 mcg/actuation HFA aerosol inhaler 1 - 2 puff inhalation Q4H PRN (Reason: Wheezing) Discharge Orders: Discharge Order (Routine); Ordered 06/04/24 Ordered By: Rachel Ramos Diet: Advance to usual diet Activity on Discharge: As tolerated Stand Alone Forms: Patient Portal Discharge page Print Language: Estonian Care Plan Goals: Take by mouth antibiotics Ceftin 500 mg 1 tablet twice daily for 3 more days Use cough medication as needed Continue all home inhalers as before Health Concerns: Pulmonary nodules/AAA Plan of Treatment: Outpatient follow-up with primary gold letterer as previously planned for follow-up on pulmonary nodules Outpatient follow-up with Dr. Phillip from vascular surgery in regard to abdominal aortic aneurysm Follow-up with primary care physician call for appointment Assessment: As above
[2024-06-03] MEDS: cefTRIAXone sodium 1 GM VIAL IVPUSH (12:38)
--- NOTE | 2024-06-03 14:02 | HO.PM.IMPN ---
Subjective Subjective Date of Service: 06/03/24 Interval History: Feeling better less shortness of breath, persistent intermittent cough no fevers, no chills, no chest pain tolerating diet, no nausea ,no vomiting, or abdominal discomfort. Review of Systems All other symptoms reviewed and are negative. Physical Exam Vital Signs: Vital Signs: Last Vital Signs Temp 97.4 F 06/03/24 07:29 Pulse 89 06/03/24 07:29 Resp 16 06/03/24 07:29 BP 131/83 06/03/24 07:29 Pulse Ox 90 L 06/03/24 07:29 O2 Del Method Room Air 06/03/24 07:29 BMI result Body Mass Index 17.0 Const: Other: General awake alert x3, resting comfortably in no acute distress. Anicteric sclera Neck supple no JVD. CVS regular rate rhythm, Respiratory lungs diminished, no respiratory distress, right basilar crackles, no wheeze, no rhonchi. Gastrointestinal abdomen soft, non tender, bowel sounds audible Extremities no edema. Neuro non focal Skin no rash Psych appropriate affect Objective Data Active Medications Acetaminophen (Acetaminophen 325 Mg Tablet) 650 mg PO Q6H PRN PRN Reason: Pain, Mild (Pain Scale 1-3), fever or headache Albuterol/Ipratropium (Albuterol/Iprat 2.5/0.5mg 3 Ml Ampul.Neb) 3 ml INHALE RQ4H WHILE AWAKE PRN PRN Reason: sob Aspirin (Aspirin Enteric Coated 81 Mg Tablet.) 81 mg PO DAILY [facility] Last Admin: 06/03/24 07:59 Dose: 81 mg Documented By: JAVON Atorvastatin Calcium (Atorvastatin Calcium 40 Mg Tablet) 40 mg PO BEDTIME [facility] Last Admin: 06/02/24 20:09 Dose: 40 mg Documented By: ROBERTO Calcium Carbonate (Calcium Carbonate 750 Mg Tab.Chew) 750 mg PO Q4H PRN PRN Reason: Heartburn Ceftriaxone Sodium (Ceftriaxone Sodium 1 Gm Vial) 1 gm IVPUSH Q24H [facility] Last Admin: 06/03/24 12:38 Dose: 1 gm Documented By: JAVON Enoxaparin Sodium (Enoxaparin Sodium 40 Mg/0.4 Ml Syringe) 40 mg SUBCUT Q24H [facility] Last Admin: 06/03/24 12:31 Dose: Not Given Documented By: COTEMA Non-Admin Reason: Patient Refused Fluticasone/Umeclidinium/Vilanterol (Fluticasone/Umeclidinium/Vilanterol 200/62.5/25 Blst.W.Dev) 1 puff INHALE RDAILY [facility] Last Admin: 06/02/24 23:28 Dose: 1 puff Documented By: JORGE Guaifenesin/Dextromethorphan (Guaifenesin Dm 200/20/10 Ml 10 Ml Syrup) 10 ml PO Q6H PRN PRN Reason: Cough Azithromycin 500 mg/ Sodium (Chloride) 250 mls @ 125 mls/hr IV Q24H [facility] Last Infusion: 06/02/24 17:56 Dose: Infused Documented By: JAVON Lisinopril (Lisinopril 5 Mg Tablet) 5 mg PO DAILY [facility]; Protocol Last Admin: 06/03/24 07:59 Dose: 5 mg Documented By: JAVON Magnesium Hydroxide (Milk Of Magnesia 30 Ml Oral.Susp) 30 ml PO DAILY PRN PRN Reason: Constipation Melatonin (Melatonin 3 Mg Tablet) 6 mg PO BEDTIME PRN PRN Reason: Insomnia Ondansetron HCl (Ondansetron Hcl 4 Mg/2 Ml Vial) 4 mg IVPUSH Q8H PRN PRN Reason: Nausea and Vomiting Polyethylene Glycol (Polyethylene Glycol 3350 17 Gm Powd.Pack) 17 gm PO DAILY PRN PRN Reason: Constipation Sodium Chloride (0.9 % Sodium Chloride Flush 3 Ml Syringe) 3 ml IVFLUSH QSHIFT [facility] Last Admin: 06/03/24 07:59 Dose: 3 ml Documented By: JAVON Labs 06/02/24 05:15 06/02/24 05:15 Microbiology Microbiology Results: Microbiology 06/01/24 15:38 Blood Culture - Preliminary Blood - Venous No growth after 24 hours. 06/01/24 15:38 Blood Culture - Preliminary Blood - Venous No growth after 24 hours. Assessment and Plan (1) AAA (abdominal aortic aneurysm): Status: Acute (2) Pulmonary nodules: Status: Acute (3) COPD (chronic obstructive pulmonary disease): Status: Acute (4) Sepsis: Status: Acute (5) Pneumonia: Status: Acute Plan 67-year-old gentleman with past medical history significant for COPD, hypertension not on home O2 resident of [facility] sent to [place] ED due to hypoxia, patient noted to be tachypneic tachycardic with leukocytosis CTA chest pending but likely has right sided pneumonia with sepsis therefore admit to hospital for iv antibiotic and close clinical monitoring. Sepsis due to right lower lobe community-acquired pneumonia Clinically feels better no worsening shortness of breath or cough, no fevers WBC trending down, tachypnea resolved, mild tachycardia , normal lactic acid CTA chest showed no PE, showed bibasilar dependent consolidation right > left, multiple by lateral spiculated nodules, abdominal aortic aneurysm measures 5.3 cm and severe centrilobular and paraseptal emphysema Continue IV ceftriaxone and IV azithromycin started on 06/02 blood cultures negative, strep pna urine antigen, Legionella antigen pending Continue Cough medication, supportive care stable oxygenation, follow closely, recommend out of bed to chair and ambulation as tolerated Obtained Pulmonary consult for pulmonary nodules,, since patient being followed by pulmonology at [facility] Dr. Soria recommend outpatient serial CT chest at [facility] pulmonary clinic Mild acute hyponatremia likely due to dehydration , status post IV fluids, sodium improved to 133 no further workup warranted. Hypertension soft blood pressure hold antihypertensives follow BP. COPD no acute exacerbation , continue as needed updraft treatment hold IV steroids follow clinical course BMI 17.8 [id number] malnutrition recommend supplement. Tobacco use disorder, smokes 1-3 cigarettes a day counseling done. Incidental finding of 5.4 cm abdominal aortic aneurysm being followed by primary care physician, vascular surgery consult obtained, CTA abdomen and pelvis obtained that showed infrarenal eccentrically thrombosed fusiform aortic aneurysm measuring 4.7 x 5.3 x 5.3 cm (AP x TV x CC). No stigmata of impending rupture. No dissection, vascular surgery ordered echocardiogram that will be reviewed by vascular surgery, continue clinical monitoring. DVT prophylaxis with Lovenox Full code In my clinical judgment patient need continued inpatient hospitalization for management of sepsis due to community-acquired pneumonia, requiring IV antibiotic, expert consultation and close clinical follow-up. Quality Stroke Does the patient have a stroke diagnosis?: No VTE Prior VTE?: No VTE Risk Level:: Medical - moderate - high VTE Device Contraindication: Treatment Not Indicated VTE Drug Contraindication: N/A - Med Ordered
[2024-06-03 15:18] VITALS: BP 130/90; PULSE 101; RESP 20; TEMP 37; O2SAT 92
[2024-06-03] MEDS: Azithromycin 500 MG in 0.9 % Sodium Chloride 250 ML 125 MG IV (16:05)
[2024-06-03 19:41] VITALS: BP 123/82; PULSE 97; RESP 20; TEMP 36.8; O2SAT 94
[2024-06-03] MEDS: Atorvastatin Calcium 40 MG TABLET PO (20:08)
[2024-06-03] MEDS: guaiFENesin DM 200/20/10 ML 10 ML SYRUP PO (21:09)
[2024-06-03 23:27] VITALS: PULSE 97; RESP 20; O2SAT 94
[2024-06-03] MEDS: Fluticasone/Umeclidinium/Vilanterol 200/62.5/25 BLST.W.DEV 1 PUFF INHALE (23:27)
[2024-06-04 03:18] VITALS: BP 130/86; PULSE 100; RESP 16; TEMP 36.6; O2SAT 94
[2024-06-04 07:29] VITALS: BP 135/89; PULSE 98; RESP 16; TEMP 36.5; O2SAT 93
[2024-06-04] MEDS: lisinopriL 5 MG TABLET PO (07:58)
[2024-06-04] MEDS: Aspirin Enteric Coated 81 MG TABLET.DR PO (07:58)
[2024-06-04] MEDS: 0.9 % Sodium Chloride Flush 3 ML SYRINGE IVFLUSH (07:59)
--- NOTE | 2024-06-04 09:59 | MHC.CLN ---
F/U DIET=REGULAR. ENSURE TID TO PROVIDE 1050 KCALS, 60 G PROTEIN. PO INTAKE USUALLY VERY GOOD, WITH MANY MEALS 100%. CONTINUE REGULAR DIET WITH SUPPLEMENT. CONTINUE TO MONITOR INTAKE.
--- NOTE | 2024-06-04 10:04 | HO.VASCPN ---
Subjective Subjective Date of Service: 06/04/24 Interval history: Lacho is doing well this morning. Echo was done this morning. We are waiting on a read. He will likely get discharged today for outpatient follow up. He has no concerns this morning. He denies any abdominal or back pain. Physical Exam Vital Signs: Vital Signs: Last Vital Signs Temp 97.7 F 06/04/24 07:29 Pulse 98 06/04/24 07:29 Resp 16 06/04/24 07:29 BP 135/89 06/04/24 07:29 Pulse Ox 93 06/04/24 07:29 O2 Del Method Room Air 06/04/24 07:29 BMI result Body Mass Index 17.0 Const: General: comfortable and no acute distress Orientation/consciousness: patient oriented x3 HEENT: Ears: hearing grossly normal bilaterally Resp: Effort & Inspection: normal respiratory effort and able to speak in complete sentences Auscultation: clear to auscultation bilaterally Cardio: Rate: regular rate Rhythm: regular rhythm Heart sounds: S1 normal heart sound present and S2 normal heart sound present Bruits: no abdominal aortic bruits, no carotid bruits, no femoral bruits and no renal bruits GI: Palpation (GI): No Abdominal aortic bruit present Neuro: General: patient oriented x3 Cranial nerves: Yes CN's II-XII intact bilaterally Progress Note: A&P Assessment and plan (1) AAA (abdominal aortic aneurysm): Status: Acute Assessment and Plan: The patient had his echo this morning; has not been read yet. We will follow up with him outpatient and and discuss intervention for the aneurysm. There is no need for acute surgical intervention at this time. We will follow up in the outpatient. Thank you for the consult. There are any questions or concerns please do not hesitate to reach out to us. Time Spent With Patient Time: Total time managing care of this patient today ___25_ minutes. Procedures Date of Service Date of Service: 06/04/24 Quality Stroke Does the patient have a stroke diagnosis?: No VTE Prior VTE?: No VTE Risk Level:: Medical - moderate - high VTE Device Contraindication: Treatment Not Indicated VTE Drug Contraindication: N/A - Med Ordered
[2024-06-04] MEDS: cefuroxime axetiL 500 MG TABLET PO (10:33)
--- NOTE | 2024-06-04 10:47 | MHC.CM.PN ---
pt to be dcd back to gabe gómez today at 11:45,pt aware
[2024-06-05 18:18] LABS: Strep Pneumo Ag urine Not Detected (Not Detected)
[2024-06-08 06:33] LABS: Legionella Ag Urine Not Detected (Not Detected)
== END 2024-06-04 11:56 | disposition home or self-care (01) | DRG 871 ==
LOC: HO.ED 12:31 → HO.EDOVER 15:03 → HO.S3 15:14
PROVIDERS: Physician Assistant Medical; Admitting Provider Hospitalist; Emergency Provider Emergency Medicine; Visit Provider Hospitalist
DX: A41.9 Sepsis, unspecified organism (principal); J18.9 Pneumonia, unspecified organism; J44.0 Chronic obstructive pulmonary disease with (acute) lower respiratory infection; E87.1 Hypo-osmolality and hyponatremia; E44.0 Moderate protein-calorie malnutrition; Z68.1 Body mass index [BMI] 19.9 or less, adult; F17.210 Nicotine dependence, cigarettes, uncomplicated; Z71.6 Tobacco abuse counseling; E86.0 Dehydration; I10 Essential (primary) hypertension; I71.43 Infrarenal abdominal aortic aneurysm, without rupture; Z20.822 Contact with and (suspected) exposure to COVID-19; Z79.82 Long term (current) use of aspirin; Z79.899 Other long term (current) drug therapy
CPT/HCPCS: 0241U; 36415; 71275; 74174; 80048; 80053; 81001; 82803; 83605; 83735; 84484; 85007; 85027; 87040; 87449; 87899; 93005; 93306; 94640; 99285; J0456; J0696; Q9957; Q9967

== ENCOUNTER → 2024-06-01 11:51 | Outpatient (BNV) | payer MEDICARE, MEDICAID, SELFPAY | PROVIDERS: Admitting Provider Hospitalist; Emergency Provider Emergency Medicine; Visit Provider Internal Medicine | DX: I51.7 Cardiomegaly (principal); R94.31 Abnormal electrocardiogram [ECG] [EKG] | CPT/HCPCS: 93010 ==

== ENCOUNTER 2024-06-01 14:56 | Outpatient (BNV) | payer MEDICARE, MEDICAID, SELFPAY | END 2024-06-03 07:00 | PROVIDERS: Admitting Provider Hospitalist; Emergency Provider Emergency Medicine; Visit Provider Internal Medicine | DX: I27.20 Pulmonary hypertension, unspecified (principal); I36.1 Nonrheumatic tricuspid (valve) insufficiency; I35.8 Other nonrheumatic aortic valve disorders | CPT/HCPCS: 93306 ==

== ENCOUNTER → 2024-06-01 14:56 | Outpatient (BNV) | payer MEDICARE, MEDICAID, SELFPAY | PROVIDERS: Admitting Provider Hospitalist; Emergency Provider Emergency Medicine; Visit Provider Hospitalist | DX: J18.9 Pneumonia, unspecified organism (principal); J44.0 Chronic obstructive pulmonary disease with (acute) lower respiratory infection; R91.8 Other nonspecific abnormal finding of lung field | CPT/HCPCS: 99223 ==

== ENCOUNTER → 2024-06-01 14:56 | Outpatient (BNV) | payer MEDICARE, MEDICAID, SELFPAY | PROVIDERS: Admitting Provider Hospitalist; Emergency Provider Emergency Medicine; Visit Provider Hospitalist | DX: A41.9 Sepsis, unspecified organism (principal); J18.9 Pneumonia, unspecified organism; J44.0 Chronic obstructive pulmonary disease with (acute) lower respiratory infection; R91.8 Other nonspecific abnormal finding of lung field | CPT/HCPCS: 99223; 99232; 99233; 99239 ==

== ENCOUNTER → 2024-06-01 14:56 | Outpatient (BNV) | payer MEDICARE, MEDICAID, SELFPAY | PROVIDERS: Admitting Provider Hospitalist; Emergency Provider Emergency Medicine; Visit Provider Physician Assistant Surgical | DX: I71.40 Abdominal aortic aneurysm, without rupture, unspecified (principal) | CPT/HCPCS: 99222; 99232 ==

== ENCOUNTER 2024-12-09 09:15 | Inpatient (IN) | payer MEDICARE, MEDICAID, SELFPAY ==
[2024-12-09] VITALS (8 sets, daily range): BP systolic 118–152; BP diastolic 77–93; PULSE 77–106; RESP 14–22; TEMP 36.3–36.6; O2SAT 92–98; BMI 16.8
--- NOTE | ~2024-12-09 | XR_ITS ---
EXAMINATION: XR CHEST CLINICAL INFORMATION: sob COMPARISON: April 03, 2023. TECHNIQUE: 2 views of the chest were obtained. FINDINGS: Hyperinflated lungs. Flattening diaphragm. Pulmonary reticular pattern. No gross consolidation pleural effusion or pneumothorax. Cardiomediastinal silhouette size is small. Multilevel thoracic and upper lumbar spondylosis. Osteopenia versus osteoporosis. XR/XR chest 2V IMPRESSION: COPD emphysematous type changes. Superimposed acute airspace disease cannot be excluded. Prior CT chest dated June 01, 2024 demonstrated pulmonary nodules. Electronically signed by: Romaine Thao MD 12/09/2024 09:58 AM EDT
--- NOTE | ~2024-12-09 | CT_ITS ---
EXAMINATION: CT CHEST WITHOUT CONTRAST CLINICAL INFORMATION: Cough. Shortness of breath. COMPARISON: June 01, 2024 TECHNIQUE: Multidetector volumetric CT imaging of the chest was done. Axial MIP volume rendering provided. Sagittal and coronal reformatted images were obtained. This CT examination was performed using dose optimization techniques as appropriate, variously including the following: *Automated exposure control *Adjustment of mA and/or kV according to patient size (this includes techniques or standardized protocols for targeted exams where dose is matched to indication/reason for exam; i.e. extremities or head) *Use of iterative reconstruction technique. DLP: 184 mGy centimeter. FINDINGS: BATH MIXER: Hyperinflated lungs. Upper extremities at the both sides of the head. LUNGS: There are multifocal, different sizes, noncalcified pulmonary nodules throughout the right and left lungs, the largest measures 1 cm, right middle lobe. Centrilobular and paraseptal emphysematous changes, both lungs. Patchy and confluent opacities in the right lung base. Secretions layering within the trachea into the right mainstem bronchus. There is increased AP diameter and flattened diameter and transverse dimension of the trachea. MEDIASTINUM: No gross lymphadenopathy. Calcified plaques throughout the thoracic aorta its main branches and the coronary arteries. No aneurysm, thoracic aorta. The heart size is small. No pericardial effusion No pneumomediastinum. CORONARY ARTERY CALCIFICATION: Calcified plaques. PLEURA: No gross pleural effusion. No pneumothorax. No hemothorax. AXILLA: No lymphadenopathy. UPPER ABDOMEN: Calcified plaques in the infrarenal abdominal aorta with a maximum diameter of 4.6 cm. Calcified plaques in the abdominal aorta splenic arteries and the origin of the main renal arteries. OSSEOUS STRUCTURES: Multilevel marginal osteophyte formation throughout the axial skeleton. There is a posterior marginal osteophyte formation C6-7 resulting in central spinal canal stenosis likely compressing the thoracic spinal cord. There is a small amount superior endplate of L2 and other small Schmorl nodes throughout the axial skeleton. Osteopenia versus osteoporosis. No acute cortical disruption or gross malalignment. No lytic or blastic lesions. CT/CT chest wo IV con IMPRESSION: COPD emphysematous type changes with aspiration resulting in likely aspiration pneumonia right lower lung lobe. Multiple noncalcified pulmonary nodules measuring less than 1 cm. Fleischner Society pulmonary nodule recommendation: High risk patients CT at 3-6. 4.6 cm infrarenal abdominal aortic aneurysm. Large posterior marginal osteophyte formation at T6-7 resulting in central spinal canal stenosis.-month than at 18-24 months. Fleischner guidelines were followed. Electronically signed by: Romaine Thao MD 12/09/2024 11:19 AM EDT
--- NOTE | 2024-12-09 09:20 | ECG_ITS ---
Test Reason : sob Blood Pressure : */* mmHG Vent. Rate : 74 BPM Atrial Rate : 74 BPM P-R Int : 140 ms QRS Dur : 138 ms QT Int : 398 ms P-R-T Axes : 82 50 55 degrees QTcB Int : 441 ms Normal sinus rhythm Right bundle branch block Abnormal ECG When compared with ECG of 01-Jun-2024 11:53, QT has shortened Referred By: Donna Pena Electronically Signed By: LOS JANG
--- NOTE | 2024-12-09 09:36 | ED_ITS ---
HPI - SOB/Dyspnea General Chief Complaint: Dyspnea Stated Complaint: SOB,COUGH,H/O PNA PER EMS Time Seen by Provider: 12/09/24 09:18 Source: patient, EMS, RN notes reviewed and old records reviewed Mode of arrival: EMS Limitations: no limitations History of Present Illness ED Provider: DONNA PENA PA-C HPI Narrative: 69-year-old male with past medical history significant for AAA, pulmonary nodules and COPD requiring oxygen only at night presents to the ED today via EMS from [facility] facility for evaluation of increasing shortness of breath and congested cough x2 weeks. Admits to clear sputum at baseline. This has not increased or become more purulent. Admits to feeling winded when exerting himself. Even simple activities such as putting on clothes causes him to become short of breath. States it feels like pneumonia . No known sick contacts. Denies fever, chills, chest pain, lower extremity pain/swelling. Related Data Home Medications ?Medication ?Instructions ?Recorded ?Confirmed albuterol sulfate 90 mcg/actuation 1 - 2 puff inhalation Q4H PRN 01/28/23 12/09/24 aerosol inhaler Wheezing acetaminophen 325 mg tablet 650 mg PO Q4H PRN pain or fever 06/01/24 12/09/24 aluminum-mag hydroxide-simethicone 10 ml PO DAILY PRN Constipation 06/01/24 12/09/24 200 mg-200 mg-20 mg/5 mL oral susp aspirin 81 mg tablet,delayed 81 mg PO DAILY 06/01/24 12/09/24 release atorvastatin 40 mg tablet 40 mg PO DAILY 06/01/24 12/09/24 fluticasone fur. 200 mcg-umeclid 1 ea inhalation DAILY 06/01/24 12/09/24 62.5 mcg-vilant 25 mcg inhalat.powder (Trelegy Ellipta) lisinopril 5 mg tablet 5 mg PO DAILY 06/01/24 12/09/24 magnesium hydroxide 400 mg/5 mL 30 ml PO DAILY PRN Constipation 06/01/24 12/09/24 oral suspension (Milk of Magnesia) Previous Rx's ?Medication ?Instructions ?Recorded dextromethorphan-guaifenesin 10 10 ml PO Q6H PRN Cough #237 mL 06/04/24 mg-100 mg/5 mL oral syrup Allergies Allergy/AdvReac Type Severity Reaction Status Date / Time No Known Allergies Allergy Verified 12/09/24 09:59 Review of Systems 2 Review of Systems: Yes all other systems are reviewed and are negative [facility] Past Medical History Attestation statement: The following information was validated with the patient. Source: old records reviewed and nursing notes reviewed Medical History COPD (chronic obstructive pulmonary disease) Pulmonary nodules HTN (hypertension) Social History Social History Household Members: Other Household Members Other:: Parisa Pagan Home Housing: Other Housing Other:: independent living Do you presently have visiting nurse or other home services: Yes ([facility] at facility) Alcohol intake: former Patient Tobacco Use Status: Current everyday Tobacco user Tobacco use type: Cigarette Cigarettes Per Day: 3 Second Hand Smoke Exposure: No Advance Directives: Yes Advance Directives Information Provided: Yes Advance Directives on File: Yes Advance Directives Date on File: 04/04/23 service: No Physical Exam 2 Vital Signs: Vital Signs: Last Vital Signs Temp 97.8 F 12/09/24 15:47 Pulse 98 12/09/24 15:47 Resp 18 12/09/24 15:47 BP 125/93 H 12/09/24 15:47 Pulse Ox 97 12/09/24 15:47 O2 Del Method Room Air 12/09/24 15:47 O2 Flow Rate 4 12/09/24 10:24 Oxygen Flow Rate 3 12/09/24 09:55 BMI result Body Mass Index 16.8 General: Well appearing, in no acute distress. Skin: Warm, dry, intact. No rashes or lesions. Head: Normocephalic, atraumatic. EENT: Hearing is intact b/l. Conjunctiva clear. PERRLA. EOM intact. Moist mucous membranes.? Neck: Supple without LAD Cardiac: Chest wall symmetric. RRR Lungs: Normal respiratory effort without accessory muscle use, no tripoding. Speaking in complete sentences. Audible rhonchi. Congested cough. On auscultation there are bilateral inspiratory and expiratory rhonchi to lower lobes with associated diminished breath sounds. Back: No midline spinous or paraspinal tenderness. No step off deformity. Ext: No calf tenderness bilaterally. No pitting edema bilaterally. Neuro: AOx3. Normal speech. Course Course Course Narrative: CBC without leukocytosis. Normocytic anemia, stable and chronic when compared to priors. VBG showing elevated bicarb - likely secondary to COPD. Otherwise WNL. Chemistry without acute electrolyte abnormality requiring intervention. No BOB. Lactic WNL at 1.5. Liver function WNL. Troponin undetectable. BNP WNL at 30, CHF unlikely. Negative COVID, flu, RSV. Initial chest x-ray showing hyperinflated lungs and flattened diaphragm consistent with COPD emphysematous changes. Superimposed acute airspace disease could not be excluded. CT chest ordered for further evaluation which shows secretions layering within the trachea into the right mainstem bronchus with patchy and confluent opacities in the right lung base consistent with an aspiration pneumonia. There are also multifocal different sized noncalcified pulmonary nodules throughout the right and left lungs with largest measuring 1 cm to right middle lobe. These are evident on previous scans. > given symptoms with findings concerning for aspiration pneumonia, I did discuss admission with patient who is agreeable. Unasyn ordered for coverage. Blood culture sent. > discussed case with hospitalist who has accepted patient admission to medicine for continued treatment of aspiration pneumonia Medications Administered Discontinued Medications Generic Name Dose Route Start Last Admin Trade Name Freq PRN Reason Stop Dose Admin Albuterol Sulfate 2.5 mg/ 0 mg 12/09/24 09:53 12/09/24 10:01 Albuterol/Ipratropium 3 ml INHALE 12/09/24 09:54 1 dose ONCE ONE Administration Ampicillin Sodium/Sulbactam 100 mls @ 200 mls/hr 12/09/24 12:16 12/09/24 13:31 Sodium 3 gm/ Sodium Chloride IV 12/09/24 12:45 Infused ONCE ONE Infusion Methylprednisolone Sodium Succinate 80 mg 12/09/24 10:08 12/09/24 10:43 Methylprednisolone Sod Succ 125 Mg/2 Ml Vial IVPUSH 12/09/24 10:09 80 mg ONCE ONE Administration Medical Decision Making Medical Decision Making [facility] Narrative: 69-year-old male with past medical history significant for AAA, pulmonary nodules and COPD requiring oxygen only at night presents to the ED today via EMS from [facility] facility for evaluation of increasing shortness of breath and congested cough x2 weeks. patient is afebrile, satting 97% on 2L NC. Normal respiratory effort without accessory muscle use, no tripoding. Speaking in complete sentences. Audible rhonchi. Congested cough. On auscultation there are bilateral inspiratory and expiratory rhonchi to lower lobes with associated diminished breath sounds. no pitting edema, no calf tenderness b/l. Differential diagnosis includes anemia, electrolyte abnormality, CHF, ACS, arrhythmia, pneumonia, bronchitis, viral syndrome, COPD exacerbation Plan for EKG, chest x-ray, screening labs, trop, viral swabs, ED bronch protocol, ambulatory O2 and re-evaluation Differential Diagnosis Differential Diagnoses: The differential diagnosis associated with the presentation includes as above. Admission/Observation Consideration of admission/observation: Escalation of care including admission/observation considered Patient admitted to medicine for further treatment of aspiration pneumonia Consult Healthcare Provider Management of the patient was discussed with: Hospitalist (Carrol Soria) Lab Data MDM Lab Attestation statement: I reviewed the patient's lab results. as above. 12/09/24 10:11 12/09/24 10:11 Labs: Lab Results 12/09/24 Range/Units 10:11 WBC 9.3 (4.8-10.8) X10*3/uL RBC 4.21 L (4.60-5.80) X10*6/uL Hgb 12.1 L (14.0-18.0) g/dl Hct 38.0 L (42.0-52.0) % MCV 90.3 (80.0-98.0) fL MCH 28.7 (27.0-33.0) pg MCHC 31.8 (31.0-36.0) g/dl RDW 13.9 (11.0-16.0) % Plt Count 206 (160-400) X10*3/uL MPV 10.4 (9.4-12.4) fL Immature Gran % (Auto) 0.3 (0.0-0.4) % Neut % (Auto) 79.1 H (45-73) % Lymph % (Auto) 8.1 L (20-40) % [place] % (Auto) 11.7 H (2-11) % Eos % (Auto) 0.6 (0-4) % Baso % (Auto) 0.2 (0-2) % Lymph # (Auto) 0.8 L (1.2-4.9) X10*3/uL [place] # (Auto) 1.1 (0.1-1.2) X10*3/uL Eos # (Auto) 0.1 (0.0-0.4) X10*3/uL Baso # (Auto) 0.0 (0.0-0.2) X10*3/uL Abs Immat Gran (auto) 0.03 (0.00-0.03) X10*3/uL Absolute Neuts (auto) 7.3 (2.0-8.3) x10*3/uL Absolute Nucleated RBC 0.000 (0.0-0.012) X10*3/uL Nucleated RBC % (auto) 0.0 (0.0-0.2) /100WBC Sodium 136 (135-145) mmol/L Potassium 4.4 (3.3-5.1) mmol/L Chloride 97 (96-108) mmol/L Carbon Dioxide 30 H (22-29) mmol/L Anion Gap 13 (12-20) BUN 9 (9-16) mg/dL Creatinine 0.61 (0.5-1.4) mg/dL Estim Creat Clear Calc 84.5 Estimated GFR > 60 Random Glucose 104 (60-115) mg/dL Calcium 9.0 D (8.4-10.2) mg/dL Magnesium 1.8 (1.6-2.6) mg/dL Total Bilirubin 0.4 (0.0-1.0) mg/dL AST 24 (5-37) U/L ALT 23 (0-40) U/L Alkaline Phosphatase 104 (39-117) U/L Troponin I High Sens < 2.7 (<3.5-35.0) ng/L B-Natriuretic Peptide 30 (<100) pg/mL Total Protein 7.2 (6.5-8.0) g/dL Albumin 4.0 (3.5-5.0) g/dL Influenza Type A (PCR) NEGATIVE (Negative) Influenza Type B (PCR) NEGATIVE (Negative) RSV RNA Qual (PCR) NEGATIVE (Negative) SARS-CoV-2 RNA (RT-PCR) NEGATIVE (Negative) Independent Interpretation I performed an independent interpretation of an: EKG and Plain X-Ray Interpretation: ekg showing normal sinus rhythm, rate of 74 beats per minute, right bundle- branch block evident on priors, no acute ischemic changes or ST elevations Chest x-ray showing hyperinflated lungs and flattened diaphragm, no obvious infiltrate or consolidation Radiology Impression Discussion of test interpretation with radiology: I have reviewed the radiologist's reading. Radiologist Impression: Procedure(s): XR chest 2V Accession Number(s): [id number] cc: Donna Pena~ EXAMINATION: XR CHEST CLINICAL INFORMATION: sob COMPARISON: April 03, 2023. TECHNIQUE: 2 views of the chest were obtained. FINDINGS: Hyperinflated lungs. Flattening diaphragm. Pulmonary reticular pattern. No gross consolidation pleural effusion or pneumothorax. Cardiomediastinal silhouette size is small. Multilevel thoracic and upper lumbar spondylosis. Osteopenia versus osteoporosis. XR/XR chest 2V IMPRESSION: COPD emphysematous type changes. Superimposed acute airspace disease cannot be excluded. Prior CT chest dated June 01, 2024 demonstrated pulmonary nodules. Electronically signed by: Romaine Thao MD 12/09/2024 09:58 AM EDT Independent Historian Clinical information obtained from an independent historian. History obtained from or confirmed by: EMS External Record Review External record reviewed: Inpatient record Prescription Management I considered prescription management with: Antibiotic Chronic Conditions Patient?s care impacted by: Other (COPD) Social Determinants Patient?s care significantly limited by Social Determinants of Health including: Other Social Determinant of Health Critical Care Time Critical Care Time Critical Care Time: Yes Total Critical Care Time: 35 Attestation: Critical care time in the amount of 35 minutes has been provided to the patient in terms of direct patient care, frequent reevaluation, consultation with hospitalist, review and interpretation of medical data and results, and management of potentially life-threatening conditions. This is all outside of any medical procedures. Discharge Plan Discharge Clinical Impression: Aspiration pneumonia, COPD exacerbation Patient Disposition: Admitted As Inpatient
--- NOTE | 2024-12-09 09:40 | MHC.EDTECH ---
EKG delayed due to pt in xray
[2024-12-09] MEDS: Albuterol Sulfate 2.5 MG, Albuterol/Iprat 2.5/0.5MG 3 ML 3 ML INHALE (10:01)
[2024-12-09 10:20] LABS: MANUAL DIFF FLAG NO
[2024-12-09 10:23] LABS: Basophils Percent Auto 0.2 % (0-2); Eosinophils Absolute Auto 0.1 X10*3/uL (0.0-0.4); Eosinophils Percent Auto 0.6 % (0-4); Hemoglobin 12.1 g/dl (14.0-18.0); Imm Gran Abs Auto 0.03 X10*3/uL (0.00-0.03); Imm Gran Pct Auto 0.3 % (0.0-0.4); Lymphocytes Absolute Auto 0.8 X10*3/uL (1.2-4.9); Lymphocytes Percent Auto 8.1 % (20-40); Mean Corpuscular HGB Conc 31.8 g/dl (31.0-36.0); Mean Corpuscular Hemoglobin 28.7 pg (27.0-33.0); Mean Corpuscular Volume 90.3 fL (80.0-98.0); Mean Platelet Volume 10.4 fL (9.4-12.4); Monocytes Absolute Auto 1.1 X10*3/uL (0.1-1.2); Monocytes Percent Auto 11.7 % (2-11); Neutrophils Absolute Auto 7.3 x10*3/uL (2.0-8.3); Neutrophils Percent Auto 79.1 % (45-73); Platelet Count 206 X10*3/uL (160-400); Red Blood Count 4.21 X10*6/uL (4.60-5.80); Red Cell Distribution Width 13.9 % (11.0-16.0); White Blood Count 9.3 X10*3/uL (4.8-10.8)
[2024-12-09 10:40] LABS: Alanine Aminotransferase 23 U/L (0-40); Alkaline Phosphatase 104 U/L (39-117); Anion Gap 13 (12-20); Aspartate Amino Transferase 24 U/L (5-37); Bilirubin Total 0.4 mg/dL (0.0-1.0); Blood Urea Nitrogen 9 mg/dL (9-16); Carbon Dioxide 30 mmol/L (22-29); Chloride 97 mmol/L (96-108); Creatinine Clr Calc Pharmacy 84.5; Estimated Glomerular Filt Rate > 60; Glucose Random 104 mg/dL (60-115); Magnesium 1.8 mg/dL (1.6-2.6); Potassium 4.4 mmol/L (3.3-5.1); Sodium 136 mmol/L (135-145); Total Protein 7.2 g/dL (6.5-8.0)
[2024-12-09] MEDS: methylPREDNISolone Sod Succ 125 MG/2 ML VIAL 80 MG IVPUSH (10:43)
[2024-12-09 10:44] LABS: B Type Natriuretic Peptide 30 pg/mL (<100)
[2024-12-09 10:53] LABS: Troponin-I High Sensitivity < 2.7 ng/L (<3.5-35.0)
[2024-12-09 11:07] LABS: Influenza A PCR NEGATIVE (Negative); Influenza B PCR NEGATIVE (Negative); Resp Syncy Virus RNA Qual PCR NEGATIVE (Negative); SARS COV2 PCR INHOUSE NEGATIVE (Negative)
[2024-12-09 12:13] LABS: Venous Blood Gas Refer to POC result
[2024-12-09 12:14] LABS: VBG Base Excess 7.6 mmol/L; VBG HCO3 35 mmol/L (22-26); VBG pCO2 63 mmHg; VBG pH 7.35 (7.32-7.43); VBG pO2 42 mmHg
[2024-12-09] MEDS: Ampicillin Sodium/Sulbactam Na 3 GM in 0.9 % Sodium Chloride 100 ML IV ×2 (12:26→18:56)
[2024-12-09 12:28] LABS: Lactic Acid 1.5 mmol/L (0.5-2.0)
--- NOTE | 2024-12-09 13:15 | P.HPHOSP_ITS ---
History of Present Illness Date of Service: 12/09/24 Chief Complaint: sob, cough 69M PMH COPD, moderate protein calorie malnutrition, presented with sob and cough. Patient lives in a rest home. Has reported 2 weeks of worsening shortness breath and dry cough feeling like crackles in the base. Reports similar to previous pneumonia presentation several months ago. Denies any dysphagia, reports good appetite but does not have a lot of food at rest home. Denies any focal neurological deficit just overall weakness and fatigue, denies fever or chills. In ED found to have opacity in the right lower lobe consistent with pneumonia. Review of Systems 2 Review of Systems: Yes all other systems are reviewed and are negative [facility] Medical History COPD (chronic obstructive pulmonary disease) Pulmonary nodules HTN (hypertension) Social History Household Members: Other Household Members Other:: Parisa Pagan Home Housing: Other Housing Other:: independent living Do you presently have visiting nurse or other home services: Yes ([facility] at facility) Alcohol intake: former Patient Tobacco Use Status: Current everyday Tobacco user Tobacco use type: Cigarette Cigarettes Per Day: 3 Second Hand Smoke Exposure: No Advance Directives: Yes Advance Directives Information Provided: Yes Advance Directives on File: Yes Advance Directives Date on File: 04/04/23 service: No Meds Allergies Allergy/AdvReac Type Severity Reaction Status Date / Time No Known Allergies Allergy Verified 12/09/24 09:59 Active Medications: Current Medications Acetaminophen (Acetaminophen 325 Mg Tablet) 650 mg PO Q6H PRN PRN Reason: Pain, Mild 1-3,fever,headache Albuterol/Ipratropium (Albuterol/Iprat 2.5/0.5mg 3 Ml Ampul.Neb) 3 ml INHALE RQ4H WHILE AWAKE PRN PRN Reason: sob Calcium Carbonate (Calcium Carbonate 750 Mg Tab.Chew) 750 mg PO Q4H PRN PRN Reason: Heartburn Enoxaparin Sodium (Enoxaparin Sodium 40 Mg/0.4 Ml Syringe) 40 mg SUBCUT Q24H ALONSO Ampicillin Sodium/Sulbactam (Sodium 1.5 gm/ Sodium Chloride) 100 mls @ 200 mls/hr IV Q8H ALONSO Magnesium Hydroxide (Milk Of Magnesia 30 Ml Oral.Susp) 30 ml PO DAILY PRN PRN Reason: Constipation Melatonin (Melatonin 3 Mg Tablet) 6 mg PO BEDTIME PRN PRN Reason: Insomnia Sodium Chloride (0.9 % Sodium Chloride Flush 3 Ml Syringe) 3 ml IVFLUSH QSHIFT [facility] Home Medications ?Medication ?Instructions ?Recorded ?Confirmed ?Last Taken ?Type albuterol sulfate 90 mcg/actuation 1 - 2 puff inhalation Q4H PRN 01/28/23 06/01/24 Unknown History aerosol inhaler Wheezing acetaminophen 325 mg tablet 650 mg PO Q4H PRN pain or fever 06/01/24 06/01/24 Unknown History aluminum-mag hydroxide-simethicone 10 ml PO DAILY PRN Constipation 06/01/24 06/01/24 Unknown History 200 mg-200 mg-20 mg/5 mL oral susp aspirin 81 mg tablet,delayed 81 mg PO DAILY 06/01/24 06/01/24 Unknown History release atorvastatin 40 mg tablet 40 mg PO DAILY 06/01/24 06/01/24 Unknown History fluticasone fur. 200 mcg-umeclid 1 ea inhalation DAILY 06/01/24 06/01/24 Unknown History 62.5 mcg-vilant 25 mcg inhalat.powder (Trelegy Ellipta) lisinopril 5 mg tablet 5 mg PO DAILY 06/01/24 06/01/24 Unknown History magnesium hydroxide 400 mg/5 mL 30 ml PO DAILY PRN Constipation 06/01/24 06/01/24 Unknown History oral suspension (Milk of Magnesia) Physical Exam 2 Vital Signs and Narrative: Vital Signs: Last Vital Signs Temp 97.7 F 12/09/24 12:18 Pulse 81 12/09/24 12:18 Resp 22 H 12/09/24 12:18 BP 128/83 12/09/24 12:18 Pulse Ox 93 12/09/24 12:18 O2 Del Method Room Air 12/09/24 12:18 O2 Flow Rate 4 12/09/24 10:24 Oxygen Flow Rate 3 12/09/24 09:55 BMI result Body Mass Index 16.8 General: AO X 3, no acute distress, frail apperaing Resp: diminished bilateral, no accessory muscles used CVS: S1,S2,RRR GI: soft, non tender, non distended Neuro: motor grossly intact, alert Psych: appropriate affect, appropriate insight Results Labs 12/09/24 10:11 12/09/24 10:11 Labs: Laboratory Results - last 24 hr 12/09/24 12/09/24 12/09/24 10:11 12:02 12:11 MCV 90.3 MCH 28.7 MCHC 31.8 RDW 13.9 Plt Count 206 MPV 10.4 Immature Gran % (Auto) 0.3 Neut % (Auto) 79.1 H Lymph % (Auto) 8.1 L [place] % (Auto) 11.7 H Eos % (Auto) 0.6 Baso % (Auto) 0.2 Lymph # (Auto) 0.8 L [place] # (Auto) 1.1 Eos # (Auto) 0.1 Baso # (Auto) 0.0 Abs Immat Gran (auto) 0.03 Absolute Neuts (auto) 7.3 Absolute Nucleated RBC 0.000 Nucleated RBC % (auto) 0.0 VBG pH 7.35 VBG pCO2 63 VBG pO2 42 VBG HCO3 35 H VBG O2 Saturation 65.0 VBG Base Excess 7.6 Anion Gap 13 Estim Creat Clear Calc 84.5 Estimated GFR > 60 Random Glucose 104 Lactic Acid 1.5 Calcium 9.0 D Magnesium 1.8 Total Bilirubin 0.4 AST 24 ALT 23 Alkaline Phosphatase 104 B-Natriuretic Peptide 30 Total Protein 7.2 Albumin 4.0 Influenza Type A (PCR) NEGATIVE Influenza Type B (PCR) NEGATIVE RSV RNA Qual (PCR) NEGATIVE SARS-CoV-2 RNA (RT-PCR) NEGATIVE Imaging Radiologist's Impressions: Impressions Chest X-Ray 12/09/24 09:30 IMPRESSION: COPD emphysematous type changes. Superimposed acute airspace disease cannot be excluded. Prior CT chest dated June 01, 2024 demonstrated pulmonary nodules. Electronically signed by: Romaine Thao MD 12/09/2024 09:[address] 12/09/24 10:46 IMPRESSION: COPD emphysematous type changes with aspiration resulting in likely aspiration pneumonia right lower lung lobe. Multiple noncalcified pulmonary nodules measuring less than 1 cm. Fleischner Society pulmonary nodule recommendation: High risk patients CT at 3-6. 4.6 cm infrarenal abdominal aortic aneurysm. Large posterior marginal osteophyte formation at T6-7 resulting in central spinal canal stenosis.-month than at 18-24 months. Fleischner guidelines were followed. Electronically signed by: Romaine Thao MD 12/09/2024 11:19 AM EDT Assessment and Plan (1) COPD (chronic obstructive pulmonary disease): Qualifiers: COPD type: COPD with acute lower respiratory infection Qualified Code(s): J44.0 - Chronic obstructive pulmonary disease with (acute) lower respiratory infection Status: Acute Plan 69M PMH COPD, moderate protein calorie malnutrition, presented with sob and cough Aspiration pneumonia Unasyn, speech eval COPD with moderate protein calorie malnutrition Continue inhalers, DuoNebs as needed, encourage p.o. intake DVT prophylaxis with Lovenox Do not resuscitate Given frailty due to malnutrition and advanced COPD at risk for decompensation from aspiration pneumonia therefore expected require at least 2 midnights inpatient Quality Stroke Does the patient have a stroke diagnosis?: No VTE Prior VTE?: No VTE Risk Level:: Medical - moderate - high VTE Device Contraindication: Treatment Not Indicated VTE Drug Contraindication: N/A - Med Ordered
--- NOTE | 2024-12-09 15:08 | PHA.MEDREC ---
Addendum entered by Lynda Gary RPh 12/09/24 16:19: REVIEWED BY [facility] Original Note: Pharmacy Consult ? Medication Reconciliation Pharmacy has completed the medication reconciliation. Utilized list from Parisa Olivas to confirm med list.
--- NOTE | 2024-12-09 15:48 | PC.NURSE ---
resting quietly in room. ambulates independently to and from the bathroom. remains on room air >95% at this time. continues to deny any pain. call jarvis within reach
[2024-12-09] MEDS: 0.9 % Sodium Chloride Flush 3 ML SYRINGE IVFLUSH ×2 (16:25→23:46)
--- NOTE | 2024-12-09 16:30 | MHC.SL.SWA ---
Speech Pathologist Impression: Risk of Aspiration Due to: History of Pneumonia Dysphasia Diet Status: Liquid Consistency and Strategies for Safe Swallow: Liquid Intake Recommendation: Thin Liquid Intake Strategies: Unrestricted Solid Food Consistency: Dietary Recommendations: Regular Additional Modifications to Solid Foods: Avoid too large pieces of solid foods, chew thoroughly. Oral Medication Intake: Whole with Liquid Please contact the pharmacy regarding appropriate crushable or liquid drug formulations that are available whenever modified delivery is recommended. Compensatory Strategies and Precautions to be Taken for Safe Swallow: Sitting Upright (90 deg) Liquids from Cup Liquids from Straw Small Bites and Sips Alternate Liquids/Solids Supervision While Eating and Drinking for Safe Swallow: None Needed Foods to Avoid: Avoid too large pieces of solid foods, chew thoroughly. Swallowing Recommended Treatments: Recommendation for Speech: NA:Typical Evaluation Comment: Patient presents with swallow mostly WFL (is missing some dentitions, which he reports may lead to not chewing his food thoroughly enough). No clinical signs of aspiration, oral motor impairment, difficulty with swallowing any texture presented today. Recommend continue on ordered diet of REGULAR with THIN liquids, Pills whole with liquid. Patient may benefit from a nutrition consult secondary to recent weight loss. No further speech services indicated at this time, [employer]EL[employer] will D/C. Please re-contact if additional concerns arise during this inpatient stay. , RD notified by secure text, RN in person. Frequency/Duration: Date Range for Service Req: Timeline to reassess: Yarn Sizer Clinican/Clinical Fellow: No Supervisory Statement: I have reviewed and agree with the student/clinical fellow's documentation: N/A Speech Language Pathologist: Enid Martines M.A., CCC-[employer]
[2024-12-09] MEDS: guaiFENesin 200 MG/10 ML 10 ML LIQUID PO (18:08)
[2024-12-10] MEDS: Ampicillin Sodium/Sulbactam Na 3 GM in 0.9 % Sodium Chloride 100 ML IV ×4 (00:20→18:43)
[2024-12-10 06:15] LABS: Hematocrit 34.5 % (42.0-52.0); Hemoglobin 11.4 g/dl (14.0-18.0); Mean Corpuscular Hemoglobin 28.7 pg (27.0-33.0); Mean Corpuscular Volume 86.9 fL (80.0-98.0); Mean Platelet Volume 10.2 fL (9.4-12.4); Platelet Count 224 X10*3/uL (160-400); Red Blood Count 3.97 X10*6/uL (4.60-5.80); Red Cell Distribution Width 13.8 % (11.0-16.0); White Blood Count 7.4 X10*3/uL (4.8-10.8)
[2024-12-10 06:37] LABS: Anion Gap 13 (12-20); Blood Urea Nitrogen 12 mg/dL (9-16); Calcium 9.3 mg/dL (8.4-10.2); Carbon Dioxide 29 mmol/L (22-29); Chloride 98 mmol/L (96-108); Creatinine Clr Calc Pharmacy 93.8; Estimated Glomerular Filt Rate > 60; Glucose Random 100 mg/dL (60-115); Magnesium 1.9 mg/dL (1.6-2.6); Potassium 4.2 mmol/L (3.3-5.1); Sodium 136 mmol/L (135-145)
[2024-12-10] MEDS: 0.9 % Sodium Chloride Flush 3 ML SYRINGE IVFLUSH ×2 (07:46→17:37)
[2024-12-10 07:51] VITALS: BP 160/95; PULSE 94; RESP 16; TEMP 36.3; O2SAT 96; BMI 16.5
[2024-12-10] MEDS: Aspirin Enteric Coated 81 MG TABLET.DR PO (07:55)
[2024-12-10] MEDS: Atorvastatin Calcium 40 MG TABLET PO (07:55)
[2024-12-10] MEDS: Enoxaparin Sodium 40 MG/0.4 ML SYRINGE SUBCUT (07:56)
[2024-12-10] MEDS: lisinopriL 5 MG TABLET PO (07:56)
[2024-12-10 11:13] VITALS: BMI 16.5
[2024-12-10 11:17] VITALS: BP 140/86; PULSE 91; RESP 16; TEMP 36.6; O2SAT 96
--- NOTE | 2024-12-10 11:17 | MHC.CLN ---
PT IS MODERATELY MALNOURISHED PT WITH MILDLY DEPLETED SUBCUTANEOUS FAT AND MUSCLE MASS WITH 7% NONSIGNIFICANT WT LOSS X 6MONTHS AND CHRONIC POOR PO INTAKE R/T PT DISLIKES FOOD AT REST [facility] AND REFUSES MEALS OFTEN PREVIOUSLY DX MPCM ON 01/29/23 AND 06/02/24 SEE NUTRITION ASSESSMENTS PT'S UBW 150# REGULAR DIET IN PLACE RECOMMEND ADDING ENSURE TID WITH MEALS TO INCREASE KCALS SUPP TO PROVIDE 1050KCALS, 60G PROTEIN MONITOR PO INTAKE AND ENCOURAGE SUPPLEMENTS SEE CLINICAL NUTRITION ASSESSMENT
--- NOTE | 2024-12-10 11:25 | HO.PM.IMPN ---
Subjective Subjective Date of Service: 12/10/24 Interval History: A bit better today Physical Exam Vital Signs: Vital Signs: Last Vital Signs Temp 97.8 F 12/10/24 11:17 Pulse 91 12/10/24 11:17 Resp 16 12/10/24 11:17 BP 140/86 H 12/10/24 11:17 Pulse Ox 96 12/10/24 11:17 O2 Del Method Room Air 12/10/24 11:17 O2 Flow Rate 4 12/09/24 10:24 Oxygen Flow Rate 3 12/09/24 09:55 BMI result Body Mass Index 16.5 General: AO X 3, no acute distress, frail Resp: diminsihed bilateral, mild accessory muscles used CVS: S1,S2,RRR GI: soft, non tender, non distended Neuro: motor grossly intact, alert Psych: appropriate affect, appropriate insight Objective Data Active Medications Acetaminophen (Acetaminophen 325 Mg Tablet) 650 mg PO Q6H PRN PRN Reason: Pain, Mild 1-3,fever,headache Albuterol/Ipratropium (Albuterol/Iprat 2.5/0.5mg 3 Ml Ampul.Neb) 3 ml INHALE RQ4H WHILE AWAKE PRN PRN Reason: sob Aspirin (Aspirin Enteric Coated 81 Mg Tablet.Dr) 81 mg PO DAILY [facility] Last Admin: 12/10/24 07:55 Dose: 81 mg Documented By: CLAUDIA Atorvastatin Calcium (Atorvastatin Calcium 40 Mg Tablet) 40 mg PO DAILY [facility] Last Admin: 12/10/24 07:55 Dose: 40 mg Documented By: CLAUDIA Calcium Carbonate (Calcium Carbonate 750 Mg Tab.Chew) 750 mg PO Q4H PRN PRN Reason: Heartburn Enoxaparin Sodium (Enoxaparin Sodium 40 Mg/0.4 Ml Syringe) 40 mg SUBCUT Q24H [facility] Last Admin: 12/10/24 07:56 Dose: 40 mg Documented By: CLAUDIA Fluticasone/Umeclidinium/Vilanterol (Fluticasone/Umeclidinium/Vilanterol 200/62.5/25 Blst.W.Dev) 1 puff INHALE DAILY [facility] Last Admin: 12/10/24 08:06 Dose: Not Given Documented By: CARLY Non-Admin Reason: pharmacy called for med Guaifenesin (Guaifenesin 200 Mg/10 Ml 10 Ml Liquid) 10 ml PO Q4H PRN PRN Reason: Cough Last Admin: 12/09/24 18:08 Dose: 10 ml Documented By: RICHARD Ampicillin Sodium/Sulbactam (Sodium 3 gm/ Sodium Chloride) 100 mls @ 200 mls/hr IV Q6H [facility] Last Infusion: 12/10/24 08:33 Dose: Infused Documented By: CLAUDIA Lisinopril (Lisinopril 5 Mg Tablet) 5 mg PO DAILY [facility]; Protocol Last Admin: 12/10/24 07:56 Dose: 5 mg Documented By: CLAUDIA Magnesium Hydroxide (Milk Of Magnesia 30 Ml Oral.Susp) 30 ml PO DAILY PRN PRN Reason: Constipation Melatonin (Melatonin 3 Mg Tablet) 6 mg PO BEDTIME PRN PRN Reason: Insomnia Sodium Chloride (0.9 % Sodium Chloride Flush 3 Ml Syringe) 3 ml IVFLUSH QSHIFT [facility] Last Admin: 12/10/24 07:46 Dose: 3 ml Documented By: CLAUDIA Labs 12/10/24 05:40 12/10/24 05:40 Labs: Laboratory Results - last 24 hr 12/09/24 12/09/24 12/10/24 12:02 12:11 05:40 MCV 86.9 MCH 28.7 MCHC 33.0 RDW 13.8 Plt Count 224 MPV 10.2 Absolute Nucleated RBC 0.000 Nucleated RBC % (auto) 0.0 VBG pH 7.35 VBG pCO2 63 VBG pO2 42 VBG HCO3 35 H VBG O2 Saturation 65.0 VBG Base Excess 7.6 Anion Gap 13 Estim Creat Clear Calc 93.8 Estimated GFR > 60 Random Glucose 100 Lactic Acid 1.5 Calcium 9.3 Magnesium 1.9 Assessment and Plan (1) Aspiration pneumonia: Status: Acute Plan 69M PMH COPD, moderate protein calorie malnutrition, presented with sob and cough Aspiration pneumonia Unasyn, speech appreciated - regular with thins COPD with moderate protein calorie malnutrition Continue inhalers, DuoNebs as needed, encourage p.o. intake DVT prophylaxis with Lovenox Do not resuscitate reason for continued hospitalization: still sob Quality Stroke Does the patient have a stroke diagnosis?: No VTE Prior VTE?: No VTE Risk Level:: Medical - moderate - high VTE Device Contraindication: Treatment Not Indicated VTE Drug Contraindication: N/A - Med Ordered
--- NOTE | 2024-12-10 12:50 | MHC.CM.PN ---
IMM DELIVERED. PATIENT RESIDES @ [facility]. FUNCTIONALLY INDEPENDENT. DENIES SERVICES. HAS 02 CONCENTRATOR FOR USE W/ SLEEP. PCP GEN CALLAHAN HCP ON FILE AND VERIFIED. [facility]CA IS SISTER, DARRYL. DP: GOAL IS RETURN TO [facility] VIA SHUTTLE. DOES NOT FEEL HE WILL NEED SERVICES. CM WILL CONTINUE TO FOLLOW.
[2024-12-10 15:41] VITALS: BP 132/84; PULSE 100; RESP 18; TEMP 36.6; O2SAT 96
[2024-12-10 19:25] VITALS: BP 125/83; PULSE 88; RESP 18; TEMP 36.3; O2SAT 96
[2024-12-11] MEDS: Ampicillin Sodium/Sulbactam Na 3 GM in 0.9 % Sodium Chloride 100 ML IV ×2 (00:28→06:27)
[2024-12-11] MEDS: 0.9 % Sodium Chloride Flush 3 ML SYRINGE IVFLUSH ×2 (00:30→08:00)
[2024-12-11 03:55] VITALS: BP 122/86; PULSE 95; RESP 18; TEMP 36.4; O2SAT 94
[2024-12-11 07:16] VITALS: BP 113/80; PULSE 98; RESP 18; TEMP 37.1; O2SAT 96
[2024-12-11 07:20] LABS: Anion Gap 12 (12-20); Blood Urea Nitrogen 18 mg/dL (9-16); Calcium 9.2 mg/dL (8.4-10.2); Carbon Dioxide 33 mmol/L (22-29); Chloride 97 mmol/L (96-108); Creatinine Clr Calc Pharmacy 78.2; Estimated Glomerular Filt Rate > 60; Glucose Random 91 mg/dL (60-115); Potassium 4.7 mmol/L (3.3-5.1); Sodium 137 mmol/L (135-145)
[2024-12-11] MEDS: Fluticasone/Umeclidinium/Vilanterol 200/62.5/25 BLST.W.DEV 1 PUFF INHALE (07:53)
[2024-12-11 07:54] VITALS: PULSE 97; RESP 18; O2SAT 95
[2024-12-11] MEDS: Aspirin Enteric Coated 81 MG TABLET.DR PO (07:58)
[2024-12-11] MEDS: Atorvastatin Calcium 40 MG TABLET PO (07:58)
[2024-12-11] MEDS: Enoxaparin Sodium 40 MG/0.4 ML SYRINGE SUBCUT (07:59)
[2024-12-11] MEDS: lisinopriL 5 MG TABLET PO (07:59)
[2024-12-11 08:32] LABS: Hematocrit 36.7 % (42.0-52.0); Hemoglobin 12.2 g/dl (14.0-18.0); Mean Corpuscular HGB Conc 33.2 g/dl (31.0-36.0); Mean Corpuscular Hemoglobin 29.3 pg (27.0-33.0); Mean Corpuscular Volume 88.2 fL (80.0-98.0); Mean Platelet Volume 10.6 fL (9.4-12.4); Platelet Count 244 X10*3/uL (160-400); Red Blood Count 4.16 X10*6/uL (4.60-5.80); Red Cell Distribution Width 14.1 % (11.0-16.0); White Blood Count 7.3 X10*3/uL (4.8-10.8)
--- NOTE | 2024-12-11 08:53 | P.DS_ITS ---
DS: Providers Provider Date of Service: 12/11/24 Date of admission: 12/09/24 11:53 Date of discharge: 12/11/24 Primary care physician: Alexei Maldonado MD DS: Diagnosis Discharge Diagnosis (1) Aspiration pneumonia: Status: Acute DS: Summary Hospital Course Hospital Course: from initial hpi: 69M PMH COPD, moderate protein calorie malnutrition, presented with sob and cough. Patient lives in a rest home. Has reported 2 weeks of worsening s hortness breath and dry cough feeling like crackles in the base. Reports similar to previous pneumonia presentation several months ago. Denies any dysphagia, reports good appetite but does not have a lot of food at rest home. Denies any focal neurological deficit just overall weakness and fatigue, denies fever or chills. In ED found to have opacity in the right lower lobe consistent with pneumonia. hospital course: Patient was admitted for aspiration pneumonia. Was treated with IV Unasyn. Seen by speech who recommended continuing regular solids with thin liquids. On discharge we will continue 5 more days of Augmentin. Did not require oxygen and is feeling much better. For COPD with moderate protein calorie malnutrition he continued on inhalers, p.o. intake is encouraged. Time Attestation Discharge Coordination Time (in mins): 33 Quality: Safe Use of Opioids Does Pt have an Active Cancer Diagnosis on the Problem List?: No Quality: Stroke Does the patient have a stroke diagnosis?: No Physical Exam Vital Signs: Vital Signs: Last Vital Signs Temp 98.7 F 12/11/24 07:16 Pulse 97 12/11/24 07:54 Resp 18 12/11/24 07:54 BP 113/80 12/11/24 07:16 Pulse Ox 96 12/11/24 07:16 O2 Del Method Room Air 12/11/24 07:16 O2 Flow Rate 4 12/09/24 10:24 Oxygen Flow Rate 3 12/09/24 09:55 BMI result Body Mass Index 16.5 General: AO X 3, no acute distress Resp: diminshed bilateral, no accessory muscles used CVS: S1,S2,RRR GI: soft, non tender, non distended Neuro: motor grossly intact, alert Psych: appropriate affect, appropriate insight DS: Data Data Completed and Pending Labs on day of discharge: Laboratory Results - last 24 hr 12/11/24 05:29 WBC 7.3 RBC 4.16 L Hgb 12.2 L Hct 36.7 L MCV 88.2 MCH 29.3 MCHC 33.2 RDW 14.1 Plt Count 244 MPV 10.6 Absolute Nucleated RBC 0.000 Nucleated RBC % (auto) 0.0 Sodium 137 Potassium 4.7 Chloride 97 Carbon Dioxide 33 H Anion Gap 12 BUN 18 H Creatinine 0.65 Estim Creat Clear Calc 78.2 Estimated GFR > 60 Random Glucose 91 Calcium 9.2 Preliminary micro results at discharge 12/09/24 12:01 Blood Culture - Preliminary Blood - Venous No growth after 24 hours. 12/09/24 12:01 Blood Culture - Preliminary Blood - Venous No growth after 24 hours. Discharge Plan Discharge Anticipated Discharge Date/Time: 12/11/24 08:51 Patient Disposition: Home, Self-Care Discharge Diagnosis: pna, copd Referrals: Alexei Maldonado MD [Primary Care Provider] - 1 Week Discharge Medications: New amoxicillin-pot clavulanate 875-125 mg tablet 1 tab PO BID Qty: 10 0RF Continued atorvastatin 40 mg tablet 40 mg PO DAILY acetaminophen 325 mg Tablet 650 mg PO Q4H PRN (Reason: pain or fever) aspirin 81 mg tablet,delayed release (DR/EC) 81 mg PO DAILY magnesium hydroxide [Milk of Magnesia] 400 mg/5 mL Suspension 30 ml PO DAILY PRN (Reason: Constipation) lisinopril 5 mg tablet 5 mg PO DAILY alum-mag hydroxide-simeth 200-200-20 mg/5 mL Suspension 10 ml PO DAILY PRN (Reason: Constipation) Rx Instructions: administer between meals and at bedtime Trelegy Ellipta 200-62.5-25 mcg blister with device 1 ea inhalation DAILY dextromethorphan-guaifenesin 10-100 mg/5 mL Syrup 10 ml PO Q6H PRN (Reason: Cough) Qty: 237 0RF albuterol sulfate 90 mcg/actuation HFA aerosol inhaler 1 - 2 puff inhalation Q4H PRN (Reason: Wheezing) Discharge Orders: Discharge Order (Routine); Ordered 12/11/24 Ordered By: Raciel Handley Diet: Advance to usual diet Activity on Discharge: As tolerated Stand Alone Forms: Patient Portal Discharge page Print Language: Uzbek Care Plan Goals: recovery Health Concerns: pna Plan of Treatment: 5 more days augmentin Assessment: see above
--- NOTE | 2024-12-11 09:33 | MHC.CM.PN ---
Addendum entered by Marine Johnston RN 12/11/24 11:49: [facility] nurse aware of dc. Original Note: Patient medically cleared for dc home self care. LM for nurse and client experience administrator at [facility] to inform of dc. Patient will transport via shuttle at 2pm. Patient and RN aware.
[2024-12-11 11:52] VITALS: BP 144/69; PULSE 99; RESP 16; TEMP 36.8; O2SAT 95
== END 2024-12-11 13:25 | disposition home or self-care (01) | DRG 178 ==
LOC: HO.ED 10:42 → HO.EDOVER 12:51 → HO.S3 12-10 06:07
PROVIDERS: Physician Assistant Medical; Admitting Provider Internal Medicine; Emergency Provider Emergency Medicine Emergency Medical Services; PCP Internal Medicine; Visit Provider Internal Medicine
DX: J69.0 Pneumonitis due to inhalation of food and vomit (principal); E44.0 Moderate protein-calorie malnutrition; Z68.1 Body mass index [BMI] 19.9 or less, adult; F17.210 Nicotine dependence, cigarettes, uncomplicated; Z66 Do not resuscitate; Z71.6 Tobacco abuse counseling; J44.9 Chronic obstructive pulmonary disease, unspecified; Z20.822 Contact with and (suspected) exposure to COVID-19; Z79.82 Long term (current) use of aspirin; Z79.899 Other long term (current) drug therapy
CPT/HCPCS: 0241U; 36415; 71046; 71250; 80048; 80053; 82803; 83605; 83735; 83880; 84484; 85025; 85027; 87040; 92610; 93005; 94640; 99285; J0295; J1650; J2919

== ENCOUNTER → 2024-12-09 09:19 | Outpatient (BNV) | payer MEDICARE, MEDICAID, SELFPAY | PROVIDERS: Emergency Provider Emergency Medicine Emergency Medical Services; Visit Provider Radiology Diagnostic Radiology | DX: J43.9 Emphysema, unspecified (principal) | CPT/HCPCS: 71046; 71250 ==

== ENCOUNTER → 2024-12-09 09:20 | Outpatient (BNV) | payer MEDICARE, MEDICAID, SELFPAY | PROVIDERS: Admitting Provider Internal Medicine; Emergency Provider Emergency Medicine Emergency Medical Services; PCP Internal Medicine; Visit Provider Internal Medicine | DX: I45.10 Unspecified right bundle-branch block (principal) | CPT/HCPCS: 93010 ==

== ENCOUNTER → 2024-12-09 11:53 | Outpatient (BNV) | payer MEDICARE, MEDICAID, SELFPAY | PROVIDERS: Admitting Provider Internal Medicine; Emergency Provider Emergency Medicine Emergency Medical Services; PCP Internal Medicine; Visit Provider Internal Medicine | DX: J69.0 Pneumonitis due to inhalation of food and vomit (principal) | CPT/HCPCS: 99223; 99232; 99239 ==